=== PATIENT | female | born 1995 | race Caucasian/White ===

== ENCOUNTER 2019-09-14 22:41 | Emergency (ER) | payer OTHER, SELFPAY ==
--- NOTE | ~2019-09-14 | XR_ITS ---
EXAMINATION: XR chest 2V 09/15/2019 00:11 INDICATION: Cough and congestion PROCEDURE: 2 view chest COMPARISON: No prior studies for comparison. FINDINGS: The lungs are clear. The cardiomediastinal silhouette is within normal limits. There are no pleural effusions. There is no pneumothorax suspected. IMPRESSION: 1: NO ACUTE CARDIOPULMONARY DISEASE. Reviewed, dictated and finalized at location A.
[2019-09-14 22:41] VITALS: BP 134/89; PULSE 86; RESP 18; TEMP 36.4; O2SAT 100
--- NOTE | 2019-09-14 22:57 | ED.URI ---
HPI - URI/Sore Throat General Chief Complaint: Upper Respiratory Infection Stated Complaint: cough Time Seen by Provider: 09/14/19 22:57 Source: patient and RN notes reviewed Mode of arrival: ambulatory Limitations: no limitations History of Present Illness HPI Narrative: A 24 y/o female, who is 36 weeks gravid, presents to the ED with a worsening green productive cough for the past 11 days. She states that she was seen at [facility] 8 days ago where she had a negative flu test and was dx with a viral infection. She reports an associated nasal congestion and a burning sensation when she takes deep breath. She denies any fevers, chills, N/V/D, or SOB. MD elicited complaint: cough Pertinent past history: asthma Onset (ago): day(s) () Consistency: progressively worsening Description of mucous: green Associated symptoms: nasal congestion and other (burning sensation when she takes deep breath) Related Data Home Medications Medication Instructions Recorded Confirmed PNV cmb#95-ferrous fumarate-FA tablet PO 09/14/19 [] Allergies Allergy/AdvReac Type Severity Reaction Status Date / Time latex Allergy Mild Rash Verified 09/14/19 23:15 pineapple Allergy Mild Rash Verified 09/14/19 23:15 Review of Systems Review of Systems: All systems reviewed & are unremarkable except as noted in HPI and below Constitutional: Constitutional: Denies chills and Denies fever(s) ENT: Reports nasal congestion Respiratory: Respiratory: Reports cough (green productive), Reports pain on inspiration (burning) and Denies dyspnea Gastrointestinal: Gastrointestinal: Denies diarrhea, Denies nausea and Denies vomiting PMFSH Past Medical History Medical History (Updated 09/15/19 @ 00:47 by Suly Ontiveros MD) Anxiety Asthma Depression Hx of seizure disorder Surgical History Surgical History (Updated 09/14/19 @ 23:08 by Curt Ferro) No history of previous surgery Social History Social History (Updated 09/14/19 @ 23:08 by Curt Ferro) Smoking status: Former smoker Tobacco type: cigarettes Exam Const: General: cooperative, no acute distress and alert Nutritional Appearance: well nourished Orientation/consciousness: patient oriented x3 Limitations: no limitations HENMT: Mouth: Yes lip normal and Yes moist mucous membranes Resp: Effort & Inspection: normal respiratory effort Auscultation: clear to auscultation bilaterally Cardio: Rate: regular rate Rhythm: regular rhythm Skin: General skin exam: normal color Neuro: General: patient oriented x3 Cognition (Neuro): normal cognition Speech: normal speech Extrem: General: normal to inspection, full ROM and no clubbing, cyanosis or edema Psych: Mental Status: mental status grossly normal Affect: normal affect Attitude: cooperative Course Course Emergency Course: Patient feeling better after nebulizer treatment. Discussed chest x-ray results, diagnosis, and treatment plan. Suspect viral upper respiratory infection with aggravation of patient's underlying asthma. No significant wheezing noted on exam, hence no steroids will be prescribed. Will prescribe inhaler. Vital Signs Vital signs: Vital Signs Temperature 97.5 F L 09/14/19 22:41 Pulse Rate 86 09/14/19 22:41 Respiratory Rate 18 09/14/19 22:41 Blood Pressure 134/89 09/14/19 22:41 Pulse Oximetry 100 09/14/19 22:41 Temperature 97.5 F L 09/14/19 22:41 Pulse Rate 102 H 09/14/19 23:26 Respiratory Rate 18 09/14/19 23:26 Blood Pressure 134/89 09/14/19 22:41 Pulse Oximetry 100 09/14/19 22:41 MDM - URI/Sore Throat Lab Data Attestation: I reviewed the patient's lab results. Labs: Influenza A Screen Negative Reference Range: Negative Influenza B Screen Negative Reference Range: Negative Strep Screen Presumptive Negative *(Reference Range: Negative)* Imaging Data Attestation: I personally reviewed and i
[2019-09-14] MEDS: IPRATROPIUM BR 0.02% INH SOLN 0.5 MG/2.5 ML VIAL INHALATION (23:15)
[2019-09-14] MEDS: ALBUTEROL SULFATE NEB 2.5 MG/0.5 ML INH 5 MG INHALATION (23:15)
[2019-09-14 23:16] VITALS: PULSE 100; RESP 18
[2019-09-14 23:26] VITALS: PULSE 102; RESP 18
[2019-09-15 00:45] VITALS: BP 138/94; PULSE 106; RESP 18; O2SAT 99
== END 2019-09-15 00:59 | disposition home or self-care (01) ==
PROVIDERS: Emergency Provider Emergency Medicine; PCP Internal Medicine Infectious Disease
DX: O99.513 Diseases of the respiratory system complicating pregnancy, third trimester (principal); J06.9 Acute upper respiratory infection, unspecified; Z87.891 Personal history of nicotine dependence
CPT/HCPCS: 71046; 87081; 87804; 87880; 94640; 99283

== ENCOUNTER 2019-09-24 14:14 | Outpatient (RCR) | payer OTHER, SELFPAY ==
[2019-09-24 15:16] VITALS: BP 129/86; PULSE 91
== END 2019-10-06 08:15 | disposition home or self-care (01) ==
LOC: ANHOBOP 14:14
PROVIDERS: PCP Internal Medicine Infectious Disease; Visit Provider Obstetrics & Gynecology
DX: O36.8130 Decreased fetal movements, third trimester, not applicable or unspecified (principal); Z3A.37 37 weeks gestation of pregnancy
CPT/HCPCS: 59025

== ENCOUNTER 2019-10-02 05:05 | Inpatient (IN) | payer OTHER, SELFPAY ==
[2019-10-02] VITALS (55 sets, daily range): BP systolic 96–173; BP diastolic 64–145; PULSE 74–270; RESP 16–18; TEMP 36.6–36.9; O2SAT 97–100; BMI 35.6
[2019-10-02 06:31] LABS: Basophils Percent Auto 0.3 % (0.2-1.2); Eosinophils Absolute Auto 0.1 K/mm3 (0-0.3); Eosinophils Percent Auto 0.7 % (0-4.4); Hematocrit 32.9 % (37.0-47.0); Hemoglobin 10.7 g/dL (12.0-15.0); Immature Granulocyte Absolute 0.21 K/mm3 (0.00-0.031); Lymphocytes Absolute Auto 2.07 K/mm3 (0.9-3.2); Lymphocytes Percent Auto 19.6 % (18.3-44.2); Mean Corpuscular HGB Conc 32.5 g/dl (32-36); Mean Corpuscular Hemoglobin 24.7 pg (26-34); Mean Platelet Volume 10.2 fl (7.4-10.4); Monocytes Absolute Auto 0.8 K/mm3 (0.1-0.6); Monocytes Percent Auto 7.4 % (2.6-8.5); Neutrophils Absolute Auto 7.4 K/mm3 (1.3-6.7); Platelet Count Result 268 k/mm3 (150-375); Red Blood Count 4.33 M/mm3 (4.2-5.4); Red Cell Distribution Width 14.6 % (11.5-14.5); White Blood Count 10.6 K/mm3 (4.5-10.0)
--- NOTE | 2019-10-02 06:38 | LDADM ---
This patient, Marielos Matson November, was admitted to Labor/Delivery/Recovery 109 on 10/02/19 at 05:05. Plans for labor, pain management and were discussed with patient. Patient/family oriented to hospital policies and general routines including ID bracelet, bed and alarms, visiting hours, pain management, procedures, bathroom and other care routines, personal items, smoking policy, room service/diet and guest tray routines, security routines, and visiting hours. Patient/Family are encouraged to report perceived risks to care and to ask questions if they do not understand what they are told or what they should do. See OBIX for further documentation.
[2019-10-02] MEDS: AMPICILLIN 2 GM/NS 100 ML 2 GM/100 ML BAG IVPB (06:41)
[2019-10-02] MEDS: LACTATED RINGERS 1,000 ML 125 ML IV CONT (06:41)
[2019-10-02] MEDS: OXYTOCIN 30 UNITS/NS 500 ML 30 UNITS/500 ML BAG IV CONT (06:42)
--- NOTE | 2019-10-02 07:17 | PM.IMHP ---
H&P: HPI History of Present Illness Chief complaint: iol Narrative: Marielos Ly is a 24 year old female 6 para 302 3 whose last menstrual period gives an EDC of 39 weeks gestation today. Her care has been with Dr. Stuart Batista. She does have a history of a term IUFD. She is positive for group B strep. Her cervix is favorable. She is admitted for induction of labor with suspected spontaneous vaginal delivery. Review of Systems Review of Systems: All systems reviewed & are unremarkable except as noted in HPI and below PMFSH Past Medical History Medical History Anxiety Asthma Depression Hx of seizure disorder Surgical History Surgical History No history of previous surgery Family History Family History Grandparent Diabetes mellitus Sibling Asthma Other Breast cancer Social History Social History Smoking status: Former smoker Tobacco type: cigarettes Substance use: never Gender identity (if verbalized by the patient): Female Spiritual care concerns: No Meds Home Medications and Allergies Home Medications Medication Instructions Recorded Confirmed Type PNV cmb#95-ferrous fumarate-FA 1 tablet PO DAILY 09/14/19 09/24/19 History [] albuterol sulfate 2 - 4 puff INHALATION Q4H PRN #18 09/15/19 09/24/19 Rx gm calcium carbonate [Tums] 200 mg PO BID 09/24/19 09/24/19 History Allergies Allergy/AdvReac Type Severity Reaction Status Date / Time latex Allergy Mild Rash Verified 09/14/19 23:15 pineapple Allergy Mild Rash Verified 09/14/19 23:15 Vital Signs Vital Signs - 24 hr 10/02/19 06:15 10/02/19 06:30 10/02/19 06:45 Pulse Rate 103 H 87 87 Blood Pressure 136/92 H 133/80 134/95 H 10/02/19 07:00 10/02/19 07:15 Pulse Rate 89 82 Blood Pressure 134/82 134/82 Exam Const: General: no acute distress Eyes: General: appearance normal, both eyes and all related structures Neck: Neck: supple and no JVD Thyroid: thyroid normal Resp: Effort & Inspection: normal respiratory effort Auscultation: clear to auscultation bilaterally Cardio: Rate: regular rate Rhythm: regular rhythm GI: Inspection: normal to inspection (Gravid soft uterus.) : General: Yes other (Cervix 2-3/50/-2. AROM clear. FHTs reassuring) Skin: General skin exam: no rashes or lesions noted Extrem: General: normal to inspection and no edema Psych: Mental Status: mental status grossly normal Affect: normal affect H&P: Results Labs Labs: Short CBC 10/02/19 Range/Units 06:14 WBC 10.6 H (4.5-10.0) K/mm3 Hgb 10.7 L (12.0-15.0) g/dL Hct 32.9 L (37.0-47.0) % Plt Count 268 (150-375) k/mm3 Assessment and Plan Additional Plan Impression: Term . Positive group B strep. History of IUFD. Plan: Medical induction labor. Spontaneous vaginal delivery is expected. she has an epidural and
[2019-10-02 07:43] LABS: Rapid Plasma Reagin Non-Reactive (NonReactive)
--- NOTE | 2019-10-02 10:09 | WPDANESEPPF ---
Anes - Initial Pre Proc Eval Date/Time: 10/02/19 10:09 Surgeon: Sudhakar Hickman MD Pre Op Diagnosis: iol Patient Data Age: 24 Gender: F Height: 5 ft 5 in Weight: 97 kg Last Vital Signs Temp 36.9 C 10/02/19 09:30 Pulse 74 10/02/19 10:00 BP 118/70 10/02/19 10:00 Pulse Ox 99 10/02/19 09:21 Allergies Allergy/AdvReac Type Severity Reaction Status Date / Time latex Allergy Mild Rash Verified 09/14/19 23:15 pineapple Allergy Mild Rash Verified 09/14/19 23:15 Home Medications Medication Instructions Recorded Confirmed Type PNV cmb#95-ferrous fumarate-FA 1 tablet PO DAILY 09/14/19 09/24/19 History [] albuterol sulfate 2 - 4 puff INHALATION Q4H PRN #18 09/15/19 09/24/19 Rx gm calcium carbonate [Tums] 200 mg PO BID 09/24/19 09/24/19 History Laboratory Tests 10/02/19 10/02/19 10/02/19 06:14 06:14 06:14 WBC 10.6 K/mm3 H K/mm3 (4.5-10.0) RBC 4.33 M/mm3 M/mm3 (4.2-5.4) Hgb 10.7 g/dL L g/dL (12.0-15.0) Hct 32.9 % L % (37.0-47.0) MCV 76.0 fl L fl (80-100) MCH 24.7 pg L pg (26-34) MCHC 32.5 g/dl g/dl (32-36) RDW 14.6 % H % (11.5-14.5) Plt Count 268 k/mm3 k/mm3 (150-375) MPV 10.2 fl fl (7.4-10.4) Immature Gran % (Auto) 2.0 % H % (0-0.5) Neut % (Auto) 70.0 % % (45.5-73.1) Lymph % (Auto) 19.6 % % (18.3-44.2) [place] % (Auto) 7.4 % % (2.6-8.5) Eos % (Auto) 0.7 % % (0-4.4) Baso % (Auto) 0.3 % % (0.2-1.2) Lymph # (Auto) 2.07 K/mm3 K/mm3 (0.9-3.2) [place] # (Auto) 0.8 K/mm3 H K/mm3 (0.1-0.6) Eos # (Auto) 0.1 K/mm3 K/mm3 (0-0.3) Baso # (Auto) 0.0 K/mm3 K/mm3 (0.0-0.1) Abs Immat Gran (auto) 0.21 K/mm3 H K/mm3 (0.00-0.031) Absolute Neuts (auto) 7.4 K/mm3 H K/mm3 (1.3-6.7) Absolute Nucleated RBC 0.0 K/mm3 K/mm3 (0.0-0.012) Nucleated RBC % 0.0 % % (0.0-0.2) RPR Non-reactive (NonReactive) Blood Type O Positive Antibody Screen Negative Patient hx anesthesia problems: none Family hx anesthesia problems: none PMFSH Past Medical History Medical History Anxiety Asthma Depression Hx of seizure disorder Surgical History Surgical History No history of previous surgery Family History Family History Grandparent Diabetes mellitus Sibling Asthma Other Breast cancer Social History Social History Smoking status: Former smoker Tobacco type: cigarettes Substance use: never Gender identity (if verbalized by the patient): Female Spiritual care concerns: No Anes - Eval Final PreProcedure Day of Procedure 10/02/19 10:09 Patient weight: obese Neurological: alert and oriented ASA classification: III Emergent: no Anesthetic plan: proceed Anesthesia type and monitoring: regional epidural and standard monitoring Informed Consent: The patient's anesthetic plan and its attendant risks and benefits were discussed with the patient/family/POA. Questions were solicited and answers provided to the satisfaction of the patient/family/POA.
[2019-10-02] MEDS: AMPICILLIN 1 GM/NS 50 ML 1 GM/50 ML BAG IVPB (10:37)
--- NOTE | 2019-10-02 11:24 | PM.OBPRVD ---
OB - Delivery Note Procedure Delivery date: 10/02/19 Intrapartal events: None Induction method: AROM Delivery augmentation: pitocin Delivery monitor: external FHT Route of delivery: Episiotomy description: None Laceration description: None Specimen: No Estimated blood loss (mL): 57 Anesthesia type: Epidural Disposition: floor Baby Date of : 10/02/19 Weeks of gestation at delivery: 39 gender: Male presentation: vertex position: Right Occiput Anterior Placenta delivery description: Spontaneous cord vessel description: 3 Vessels and Nuchal Cord score one minute: 9 score five minutes: 9
[2019-10-02] MEDS: OXYTOCIN 30 UNITS/NS 500 ML 30 UNITS/500 ML BAG 125 UNITS IV CONT (12:08)
[2019-10-02] MEDS: ACETAMINOPHEN 325 MG TABLET 650 MG PO ×2 (17:17→23:16)
--- NOTE | 2019-10-02 17:34 | OBPPTRN ---
Patient transferred to post room # 285 per wheelchair. Support person present. Oriented to unit, room, information board, rooming in, admission packet and security measures. Patient verbalizes understanding.
[2019-10-03 05:11] LABS: Hematocrit 30.8 % (37.0-47.0); Hemoglobin 9.6 g/dL (12.0-15.0)
--- NOTE | 2019-10-03 06:53 | PM.OBPNVD ---
OB - PN: Subj Subjective Date/time seen: 10/03/19 06:53 Patient comments: no complaints and pain well controlled baby status: doing well and nursing well OB - PN: Obj Data Labs CBC & Chem 7: 10/03/19 04:28 Labs: Laboratory Results - last 24 hr 10/02/19 10/02/19 10/03/19 06:14 06:14 04:28 Hgb 9.6 L Hct 30.8 L RPR Non-reactive Blood Type O Positive Antibody Screen Negative OB - PN A/P Plan day: 1 Plan: routine care Time Spent With Patient Time: Total time spent is greater than 50% in coordination of care (as documented) at patient's floor/unit and/or counseling patient: Time with patient: less than 15 minutes Review of Systems Review of Systems: All systems reviewed & are unremarkable except as noted in HPI and below Exam Const: General: no acute distress Eyes: General: appearance normal, both eyes and all related structures Neck: Neck: supple and no JVD Thyroid: thyroid normal Resp: Effort & Inspection: normal respiratory effort Auscultation: clear to auscultation bilaterally Cardio: Rate: regular rate Rhythm: regular rhythm GI: Inspection: non-distended GI Palp: Yes Soft to palpation, No Tenderness to palpation present (GI) and No Guarding due to palpation present (GI) Auscultation: normal bowel sounds : General: Yes bladder normal to palpation External Female Exam: normal external appearance Speculum Exam - Vagina: normal vaginal discharge and No vaginal bleeding Speculum Exam - Cervix: nontender Bimanual exam- vagina & uterus: bladder normal to palpation and No Cervical tenderness present OB/external & speculum: No vaginal bleeding Skin: General skin exam: no rashes or lesions noted Extrem: General: normal to inspection and no edema Psych: Mental Status: mental status grossly normal Affect: normal affect
[2019-10-03 08:00] VITALS: BP 121/75; PULSE 80; RESP 18; TEMP 36.9; O2SAT 98
--- NOTE | 2019-10-03 13:15 | PC.NURSE ---
Consulted with patient, mother reports pain with feeding. Both nipples are reddened from incorrect latch. Nipple care reviewed. Reviewed feeding cues, frequencies, duration of feedings, feeding elimination flow sheet, and signs of adequate intake. Demonstrated stimulation techniques to wake infant for feeding. Assisted with to breast. Reviewed positioning/alignment in cross cradle, holding breast in U hold and guided asymmetrical latch on. Infant was able to latch correctly. Mother quickly reports she can feel infant is latched more deeply than previous feedings. nursed eagerly, with steady draws and frequent swallowing noted. Reviewed signs of a correct latch, effective nursing and suck swallow ratio. Infant was able to maintain latch without discomfort to mother. Suggested mother stimulate infant to keep awake and nursing effectively for increased intake and assist with maintaining deep latch. Demonstrated how to adjust latch more deeply while feeding. Instructed mother to call out for RN assistance if she is unable to latch infant for feeding or she has discomfort with nursing. Instructed feeding should be initiated three hours from start of last feeding or if feeding cues are noted before. Mother voiced understanding of information shared.
[2019-10-03] MEDS: MULTIVIT/MIN/PREN/FOL AC/IRON TABLET 1 TAB PO (13:49)
[2019-10-03] MEDS: DOCUSATE SODIUM 100 MG CAPSULE PO (13:49)
[2019-10-03] MEDS: ACETAMINOPHEN 325 MG TABLET 650 MG PO (13:49)
[2019-10-03] MEDS: POLYSACCHARIDE IRON COMPLEX 150 MG CAPSULE PO (13:49)
[2019-10-03 20:04] VITALS: BP 117/82; PULSE 85; RESP 16; TEMP 36.5
[2019-10-04 08:00] VITALS: BP 118/90; PULSE 75; RESP 16; TEMP 36.7; O2SAT 98
[2019-10-04] MEDS: DOCUSATE SODIUM 100 MG CAPSULE PO (09:52)
[2019-10-04] MEDS: MULTIVIT/MIN/PREN/FOL AC/IRON TABLET 1 TAB PO (09:52)
[2019-10-04] MEDS: POLYSACCHARIDE IRON COMPLEX 150 MG CAPSULE PO ×2 (09:52)
--- NOTE | 2019-10-04 10:55 | PC.NURSE ---
Patient viewed the discharge video Mother & Baby Care, The First Two Weeks . Patient was given the opportunity and encouraged to ask questions. Patient verbalized understanding of information shared and has been given the mother/baby guide for home reference.
--- NOTE | 2019-10-04 11:18 | PM.OBPNVD ---
OB - PN: Subj Subjective Date/time seen: 10/04/19 11:18 Narrative: Pain OK. Would like to go home. OB - PN: Obj Data Labs CBC & Chem 7: 10/03/19 04:28 OB - PN A/P Plan Comments: A: PPD#2, doing well. P: Home to f/u 6 weeks. Exam Psych: Other: AVSS ABD soft, nontender, fundus firm EXT nontender
--- NOTE | 2019-10-04 11:18 | PM.OBDSVD ---
DS: Diagnosis Discharge Diagnosis (1) (normal spontaneous vaginal delivery): Code(s): O80 - Encounter for full-term uncomplicated delivery Status: Acute OB - DS: Summary OB Procedures : None OB Procedures Intrapartum: Spontaneous Vag Delivery OB Procedures: : None Time Spent with Patient Time attestation: Total time spent providing and/or coordinating discharge services: Discharge Plan Discharge Attending physician on discharge: Sudhakar Hickman Discharging Clinician: Daniel Vergara Patient Disposition: Home, Self-Care Activity: pelvic rest Diet: regular Discharge Instructions: Call or return if temperature above 100.4? F, increased abdominal pain, increased vaginal bleeding or any new problems. Stand Alone Forms: General Discharge Information Follow-up/Referrals: Sudhakar Hickman MD [Physician] - (6 weeks) Daniel Vergara MD [Physician] - Discharge Medications: New ibuprofen 600 mg tablet 600 mg PO Q6H PRN (Reason: cramps) Qty: 30 RF: 0 No Action calcium carbonate [Tums] 200 mg calcium (500 mg) Tablet,Chewable 200 mg PO BID RF: 0 PNV cmb#95-ferrous fumarate-FA [] 28 mg iron- 800 mcg Tablet 1 tablet PO DAILY RF: 0 albuterol sulfate 90 mcg/actuation HFA aerosol inhaler 2 - 4 puff INHALATION Q4H PRN (Reason: shortness of breath or wheezing) Qty: 18 RF: 0 Date of admission: 10/02/19 05:05 Primary Care Provider: BrennenCynthia Admitting Provider: Sudhakar Hickman Attending physician on admission: Sudhakar Hickman
[2019-10-04] MEDS: MEASLES,MUMPS,RUBELLA VACCINE 0.5 ML VIAL SUB-Q (11:57)
[2019-10-06 09:22] VITALS: BP 127/90; PULSE 89; RESP 18; TEMP 36.7
== END 2019-10-04 12:44 | disposition home or self-care (01) | DRG 560 ==
LOC: ANHLDR 05:37 → ANHOB2 10-04 11:20 → ANHLDR 10-07 10:33 → ANHOB2 10-07 10:33
PROVIDERS: Admitting Provider Obstetrics & Gynecology; PCP Internal Medicine Infectious Disease; Visit Provider Obstetrics & Gynecology
DX: O99.824 Streptococcus B carrier state complicating childbirth (principal); Z3A.39 39 weeks gestation of pregnancy; Z37.0 Single live birth; Z23 Encounter for immunization; Z87.891 Personal history of nicotine dependence; O69.81X0 Labor and delivery complicated by cord around neck, without compression, not applicable or unspecified
CPT/HCPCS: 36415; 85014; 85018; 85025; 86592; 86850; 86900; 86901; 90710; A9270; J0290; J2590; J2795; J7120

== ENCOUNTER 2019-11-25 00:34 | Outpatient (CLI) | payer OTHER, SELFPAY ==
[2019-11-25 18:41] LABS: SARS-CoV-2 RNA PCR Negative
== END 2019-11-25 00:35 | disposition home or self-care (01) ==
LOC: ANHCOVIDDT 00:34
PROVIDERS: PCP Internal Medicine Infectious Disease; Visit Provider Obstetrics & Gynecology
DX: Z01.818 Encounter for other preprocedural examination (principal); Z11.59 Encounter for screening for other viral diseases
CPT/HCPCS: 87635; C9803; U0003

== ENCOUNTER 2019-11-26 10:22 | Outpatient (CLI) | payer OTHER, SELFPAY ==
[2019-11-26 11:15] LABS: Hematocrit 38.1 % (37.0-47.0); Hemoglobin 12.3 g/dL (12.0-15.0)
== END 2019-11-26 10:23 | disposition home or self-care (01) ==
PROVIDERS: PCP Internal Medicine Infectious Disease; Visit Provider Obstetrics & Gynecology
DX: D64.9 Anemia, unspecified (principal)
CPT/HCPCS: 36415; 85014; 85018

== ENCOUNTER 2019-11-28 02:01 | Day surgery (SDC) | payer OTHER, SELFPAY ==
[2019-11-21 14:55] VITALS: BMI 23.3
--- NOTE | 2019-11-27 07:29 | PM.IMHP ---
H&P: HPI History of Present Illness Chief complaint: desires sterilization Narrative: Marielos Ly is a 24 year old female G4 before who was admitted for laparoscopic tubal ligation. She desires permanent and irreversible sterilization. We reviewed alternative is including but not exclusive of pills patches injections implants etc. Failure rates of 09/999 the subsequent risk of ectopic , bleeding and were reviewed. Permanence was under good she had all questions answered in asked to proceed Review of Systems Review of Systems: All systems reviewed & are unremarkable except as noted in HPI and below PMFSH Past Medical History Medical History Anxiety Asthma Depression Hx of seizure disorder Surgical History Surgical History No history of previous surgery Family History Family History Grandparent Diabetes mellitus Sibling Asthma Other Breast cancer Social History Social History Smoking status: Former smoker Tobacco type: cigarettes Substance use: never Gender identity (if verbalized by the patient): Female Spiritual care concerns: No Meds Home Medications and Allergies Home Medications Medication Instructions Recorded Confirmed Type albuterol sulfate 2 - 4 puff INHALATION Q4H PRN #18 09/15/19 11/21/19 Rx gm Allergies Allergy/AdvReac Type Severity Reaction Status Date / Time latex Allergy Severe SEVERE Verified 11/21/19 14:53 SWELLING/IRRITATION RASH pineapple Allergy Severe ANAPHYLATIC Verified 11/21/19 14:53 REACTION Exam Const: General: no acute distress Eyes: General: appearance normal, both eyes and all related structures Neck: Neck: supple and no JVD Thyroid: thyroid normal Resp: Effort & Inspection: normal respiratory effort Auscultation: clear to auscultation bilaterally Cardio: Rate: regular rate Rhythm: regular rhythm GI: Inspection: non-distended GI Palp: Yes Soft to palpation, No Tenderness to palpation present (GI) and No Guarding due to palpation present (GI) Auscultation: normal bowel sounds : General: Yes bladder normal to palpation External Female Exam: normal external appearance Speculum Exam - Vagina: normal vaginal discharge and No vaginal bleeding Speculum Exam - Cervix: nontender Bimanual exam- vagina & uterus: bladder normal to palpation and No Cervical tenderness present OB/external & speculum: No vaginal bleeding Skin: General skin exam: no rashes or lesions noted Extrem: General: normal to inspection and no edema Psych: Mental Status: mental status grossly normal Affect: normal affect Assessment and Plan Additional Plan impression: Desires permanent sterilization Plan: Laparoscopic bilateral tubal ligation
[2019-11-28] VITALS (14 sets, daily range): BP systolic 114–151; BP diastolic 72–101; PULSE 64–105; RESP 9–22; TEMP 36.7–37; O2SAT 7–100
--- NOTE | 2019-11-28 06:43 | WPDHPUPDATE1 ---
History and Physical Update Update Date/Time: 11/28/19 06:43 History and Physical has been reviewed, including an updated exam of the patient. There are NO changes in the patient's condition. Risks, benefits, and alternatives have been discussed and questions answered. Patient agrees to proceed with procedure.
[2019-11-28] MEDS: LACTATED RINGERS 1,000 ML 30 ML IV CONT ×2 (07:05→10:39)
--- NOTE | 2019-11-28 07:11 | WPDANESEPPF ---
Anes - Initial Pre Proc Eval Procedure: Operation Date: 11/28/19 09:30 Proposed Procedures p Laparoscopic Bilateral Tubal Sterilization with Fallopian Rings - Sudhakar Hickman MD Date/Time: 11/28/19 07:11 Surgeon: Sudhakar Hickman MD Pre Op Diagnosis: desires sterilization Patient Data Age: 24 Gender: F Height: 5 ft 5 in Weight: 63.5 kg Allergies Allergy/AdvReac Type Severity Reaction Status Date / Time latex Allergy Severe SEVERE Verified 11/21/19 14:53 SWELLING/IRRITATION RASH pineapple Allergy Severe ANAPHYLATIC Verified 11/21/19 14:53 REACTION Home Medications Medication Instructions Recorded Confirmed Type albuterol sulfate 2 - 4 puff INHALATION Q4H PRN #18 09/15/19 11/21/19 Rx gm hydrocodone-acetaminophen [[place]] 1 tablet PO Q4H PRN #30 tablet 11/28/19 Rx Patient hx anesthesia problems: none Family hx anesthesia problems: post op nausea/vomiting PMFSH Past Medical History Medical History Anxiety Asthma Depression Hx of seizure disorder Surgical History Surgical History No history of previous surgery Family History Family History Grandparent Diabetes mellitus Sibling Asthma Other Breast cancer Social History Social History Smoking status: Former smoker Tobacco type: cigarettes Substance use: never Gender identity (if verbalized by the patient): Female Spiritual care concerns: No Anes - Eval Final PreProcedure Day of Procedure 11/28/19 07:11 Patient weight: overweight Heart: regular rate and rhythm Lungs: clear to auscultation Airway: Mallampati scale class II Neurological: alert and oriented Last oral intake: >/= 8 hours ASA classification: III Emergent: no Anesthetic plan: proceed Anesthesia type and monitoring: general ETT and standard monitoring Informed Consent: The patient's anesthetic plan and its attendant risks and benefits were discussed with the patient/family/POA. Questions were solicited and answers provided to the satisfaction of the patient/family/POA.
[2019-11-28] MEDS: KETOROLAC 30 MG/ML VIAL (*BKC) IV PUSH (09:48)
--- NOTE | 2019-11-28 09:50 | PM.PROC ---
Procedure Note - Detailed Date of procedure: 11/28/19 Pre-op diagnosis: desires sterilization Surgeon: Sudhakar Hickman MD Postop diagnosis desires sterilization Anesthesia: General endotracheal EBL: 5cc Complications: None Findings: Normal-appearing ovaries tubes and uterus Procedure: Laparoscopic bilateral tubal ligation with silastic rings Description of procedure: The patient was prepped and draped in the normal sterile fashion placed in the dorsal lithotomy position. Under excellent general endotracheal anesthesia weighted speculum placed in posterior fornix of vagina. Anterior lip of the cervix grasped with a single-tooth tenaculum. The Marie's cannula was inserted the cervix attached to the single-tooth. This was used later for uterine manipulation. After emptying the bladder of clear urine the weighted speculum was removed. Gloves were changed An infraumbilical incision made Veress needle passed in the abdomen. Veress needle passed in the abdomen filled with CO2 gas [id number]. 5mm trocar was advanced in the abdomen under direct visualization assuring no injury. The patient was placed in Trendelenburg and a suprapubic incision made. The 8mm trocar advanced in the abdomen under direct visualization assuring no injury. The right fallopian tube was grasped a good knuckle of tube free tied at its midportion excellent blanching was seen the left fallopian tube was grasped and a good knuckle of tube was formed with the silastic band. Blanching was noted as well. Photo documentation was undertaken. The appendix appeared within normal limits as did the remainder of the pelvis. The lower site removed. The gas removed from the abdomen. The incisions closed with 4 O Monocryl and glue. Instruments removed from the vagina patient. The patient went to recovery in satisfactory condition all sponge, needle, instrument counts were correct. There were no immediate complications
--- NOTE | 2019-11-28 10:57 | SUR.PHASEI ---
PT ABLE TO FALL ASLEEP FOR A COUPLE OF MINUTES IN BETWEEN DOSES OF FENTANYL BUT THEN WAKES UP CRYING.
[2019-11-28] MEDS: HYDROMORPHONE HCL 1 MG/ML INJ 0.5 MG IV PUSH ×2 (11:14→11:35)
--- NOTE | 2019-11-28 12:07 | SUR.PHASEI ---
UPDATED WHEN PT ARRIVED FROM OR AT 1000, AT 1100 AND AT 1200.
== END 2019-11-28 13:22 | disposition home or self-care (01) ==
PROVIDERS: PCP Internal Medicine Infectious Disease; Visit Provider Obstetrics & Gynecology
PROC: (CPT 58671; principal; 2019-11-28 09:30)
DX: Z30.2 Encounter for sterilization (principal); D64.9 Anemia, unspecified; J45.909 Unspecified asthma, uncomplicated; F32.9 Major depressive disorder, single episode, unspecified; Z87.891 Personal history of nicotine dependence
CPT/HCPCS: 58671; A4264; A9270; J0131; J1100; J1170; J1885; J2250; J2405; J2704; J2710; J3010; J7120

== ENCOUNTER 2019-12-04 23:49 | Emergency (ER) | payer OTHER, SELFPAY ==
[2019-12-05 00:02] VITALS: BP 135/89; PULSE 115; RESP 14; TEMP 37; O2SAT 100
[2019-12-05 00:32] LABS: Basophils Percent Auto 0.4 % (0.2-1.2); Eosinophils Absolute Auto 0.1 K/mm3 (0-0.3); Eosinophils Percent Auto 0.8 % (0-4.4); Hematocrit 37.3 % (37.0-47.0); Hemoglobin 11.9 g/dL (12.0-15.0); Immature Granulocyte Absolute 0.05 K/mm3 (0.00-0.031); Immature Granulocyte Percent A 0.7 % (0-0.5); Lymphocytes Absolute Auto 1.91 K/mm3 (0.9-3.2); Lymphocytes Percent Auto 25.8 % (18.3-44.2); Mean Corpuscular HGB Conc 31.9 g/dl (32-36); Mean Corpuscular Hemoglobin 24.9 pg (26-34); Mean Platelet Volume 9.2 fl (7.4-10.4); Monocytes Percent Auto 13.4 % (2.6-8.5); Neutrophils Absolute Auto 4.4 K/mm3 (1.3-6.7); Neutrophils Percent Auto 58.9 % (45.5-73.1); Platelet Count Result 296 k/mm3 (150-375); Red Blood Count 4.78 M/mm3 (4.2-5.4); Red Cell Distribution Width 14.9 % (11.5-14.5); White Blood Count 7.4 K/mm3 (4.5-10.0)
[2019-12-05 00:40] LABS: Add Urine Microscopic? YES; Appearance Urine Cloudy (Clear); Bacteria Urine Trace /hpf; Bilirubin Urine Negative (Negative); Blood Urine Negative (Negative); Color Urine Yellow (Yellow); Glucose Urine UA Negative (Negative); Ketones Urine Negative (Negative); Leukocyte Esterase Ur Trace LEU/UL (Negative); Mucus Urine Rare /lpf; Nitrate Urine Negative (Negative); Protein Urine Negative (Negative); Specific Grav Ur 1.023 (1.001-1.035); Squamous Epithelial Cell Urine Many /hpf (Few); Urobilinogen Urine Negative mg/dL (<2.0)
[2019-12-05 00:45] LABS: Alanine Aminotransferase 105 U/L (4-35); Albumin Level 4.6 g/dL (3.5-5.1); Alkaline Phosphatase 97 U/L (38-126); Aspartate Amino Transferase 65 U/L (14-36); Bilirubin,Total 0.2 mg/dL (0.2-1.3); Blood Urea Nitrogen 18 mg/dL (7-17); Calcium 9.6 mg/dL (8.4-10.2); Carbon Dioxide 26 mmol/L (22-30); Chloride 103 mmol/L (98-107); Estimated CRCL calculation 92 ml/min; Estimated Glomerular Filt Rate > 60; Glucose 96 mg/dL (65-105); Lipase 64 U/L (23-300); Sodium 138 mmol/L (137-145)
--- NOTE | 2019-12-05 00:48 | ED.GENADULT ---
HPI - General Adult General Chief complaint: Unspecified Stated complaint: fever post op Time Seen by Provider: 12/05/19 00:31 History of Present Illness HPI narrative: Patient presents with 2 days of fever and incisional pain from her tubal ligation 1 week ago. She was healing up fine, and then some incisional pain, fever and chills. She had Portal from postop, which she had not taken prior, and that helped just a little. Her temp this evening before coming in was 101. She currently gives the pain at 6 out of 10 without palpitation, but 9 out of 10 with palpitation at the incision site. There is no redness or drainage at the incision site. She does not take prescription medication, has had no other surgeries on her tubal ligation, and does not smoke drink or do drugs. Onset (ago): day(s) Location: abdomen Severity: severe Severity scale (1-10): 6 Related Data Allergies Allergy/AdvReac Type Severity Reaction Status Date / Time latex Allergy Severe SEVERE Verified 11/28/19 07:55 SWELLING/IRRITATION RASH pineapple Allergy Severe ANAPHYLATIC Verified 11/28/19 07:55 REACTION Review of Systems Review of Systems: Narrative: CONSTITUTIONAL: She has had fever, chills, and sweats. EYES: Denies visual changes, redness, or discharge. ENT: Denies rhinorrhea, congestion, sore throat, or otalgia. CARDIOVASCULAR: Denies chest pain, palpitations, or edema. RESPIRATORY: Denies cough or dyspnea. GASTROINTESTINAL: She has abdominal pain, but no nausea, vomiting, or diarrhea. GENITOURINARY: Denies dysuria or hematuria. SKIN: Denies rash or itching. MUSCULOSKELETAL: Denies back pain, joint pain, or myalgia. NEUROLOGIC: Denies headache, numbness, or weakness. PSYCHIATRIC: Denies anxiety or depression. [facility] Social History Social History Smoking status: Former smoker Tobacco type: cigarettes Substance use: never Gender identity (if verbalized by the patient): Female Spiritual care concerns: No Exam Narrative: Exam Narrative: GENERAL: Well-appearing, well-nourished, and in no acute distress. Quite nikos young lady. HEAD: Normocephalic, atraumatic. EYES: PERRLA and EOMI. ENT: Nares clear, no rhinorrhea or epistaxis. Mucous membranes moist. NECK: Supple. CHEST: Clear to auscultation. No respiratory distress. HEART: Regular rate and rhythm. No murmur heard. Normal peripheral pulses. ABDOMEN: Soft, 1 inch incision suprapubic, without drainage or redness. EXTREMITIES: Normal range of motion. No edema. SKIN: Warm, dry, no rash. NEURO: No focal deficits. Alert and oriented x3. PSYCH: Normal mood and affect. Course Reevaluation(s) Reevaluation #1: Went in to tell the patient about the Augmentin and for her to call in the morning for same-day appointment. She agrees. Date: 12/05/19 Time: 01:04 Consultations Consultation #1: Calling Dr. Scott Chairez, to discuss the case. Dr. Darcy Chairez return the call and agrees with starting Augmentin. He says she can have a same-day appointment today. Date: 12/05/19 Time: 00:52 Vital Signs Vital signs: Vital Signs Temperature 98.6 F 12/05/19 00:02 Pulse Rate 115 H 12/05/19 00:02 Respiratory Rate 14 12/05/19 00:02 Blood Pressure 135/89 12/05/19 00:02 Pulse Oximetry 100 12/05/19 00:02 Temperature 98.6 F 12/05/19 00:02 Pulse Rate 115 H 12/05/19 00:02 Respiratory Rate 14 12/05/19 00:02 Blood Pressure 135/89 12/05/19 00:02 Pulse Oximetry 100 12/05/19 00:02 Medical Decision Making Medical Records Medical records reviewed: Yes I reviewed the patient's medical records. Vital Signs Vital Signs: Vital Signs Temperature 98.6 F 12/05/19 00:02 Pulse Rate 115 H 12/05/19 00:02 Respiratory Rate 14 12/05/19 00:02 Blood Pressure 135/89 12/05/19 00:02 Pulse Oximetry 100 12/05/19 00:02 Temperature 98.6 F 12/05/19 00:02 Pulse Rate 115 H 12/05/19 00:02 Respiratory Ra
[2019-12-05] MEDS: ACETAMINOPHEN 325 MG TABLET 650 MG PO (01:10)
[2019-12-05] MEDS: IBUPROFEN 600 MG TABLET PO (01:10)
[2019-12-05] MEDS: AMOXICILLIN/CLAVULANATE K 875-125 MG TAB 1 TABLET PO (01:11)
[2019-12-05 01:18] VITALS: BP 130/75; PULSE 100; RESP 14; TEMP 37.5; O2SAT 100
== END 2019-12-05 01:20 | disposition home or self-care (01) ==
PROVIDERS: Emergency Provider Emergency Medicine; PCP Internal Medicine Infectious Disease
DX: G89.18 Other acute postprocedural pain (principal); R50.82 Postprocedural fever; Z87.891 Personal history of nicotine dependence
CPT/HCPCS: 36415; 80053; 81001; 83690; 85025; 87086; 99283; A9270

== ENCOUNTER 2020-03-07 01:26 | Emergency (ER) | payer OTHER, SELFPAY ==
--- NOTE | ~2020-03-07 | CT_ITS ---
EXAMINATION: CT brain wo con DATE: 03/07/2020 02:49 INDICATION: Severe headache. Seizure. TECHNIQUE: Computed tomography (CT) of the head was performed without intravenous contrast. Sagittal and coronal reconstructions were performed. The mA was adjusted according to patient size. Iterative reconstruction technique was employed. The dose-length product was 605.33 mGy-cm. COMPARISON: head CT dated 10/30/2011 FINDINGS: No acute intracranial hemorrhage, acute infarction or abnormal extra axial fluid collection. Ventricl es are normal and symmetric. No mass/mass effect. The orbits, paranasal sinuses and mastoid air cells are normal. IMPRESSION: 1. Normal head CT. Reviewed, dictated and finalized at location A. IMPRESSION: 1. Normal head CT.
[2020-03-07 01:27] VITALS: BP 154/95; PULSE 76; RESP 18; TEMP 36.9; O2SAT 99
--- NOTE | 2020-03-07 02:37 | ED.SEIZURE ---
HPI - Seizure General Chief Complaint: Seizure Stated Complaint: seizure Time Seen by Provider: 03/07/20 02:17 Source: patient Mode of arrival: EMS Limitations: no limitations History of Present Illness HPI Narrative: This patient is a 24 year old female with history seizures and migraines who presents for evaluation of seizures. EMS reports patient was witness to have 2 seizures lasting 7 minutes . PAtient states she remembers talking to her friend and then she woke up to EMS . She now reports severe left sided headache and she had nausea and vomiting after her seizure. Patient reports she has been dealing with seizures since the age of 13. She was taking topamax but she has not taken in over 2 years. She states she does not like taking medication. Her neurologist is a Dr. Mulligan at [facility] but she has not seen him in a while. SHe states they believe her seizures are due to her migraines. Her family reports she had a seizure 10 days ago and before that she has not had a seizure in a year. Her family reports her seizure look like legs stiffen and her eyes of closed. Seizure History: Yes (UNKNOWN-THINKS MAYBE 2 YEARS) Related Data Allergies Allergy/AdvReac Type Severity Reaction Status Date / Time latex Allergy Severe SEVERE Verified 11/28/19 07:55 SWELLING/IRRITATION RASH pineapple Allergy Severe ANAPHYLATIC Verified 11/28/19 07:55 REACTION Review of Systems Review of Systems: All systems reviewed & are unremarkable except as noted in HPI and below Constitutional: Constitutional: Denies chills and Denies fever(s) ENT: Comments: denies biting tongue Gastrointestinal: Gastrointestinal: Denies abdominal pain, Reports nausea and Reports vomiting Genitourinary: Genitourinary: Denies urinary incontinence Neurologic: Reports headache(s), Denies focal weakness and Denies numbness PMFSH Social History Social History Smoking status: Former smoker Tobacco type: cigarettes Substance use: never Gender identity (if verbalized by the patient): Female Spiritual care concerns: No Exam Narrative: Exam Narrative: GENERAL: Well-appearing, well-nourished, and in no acute distress. HEAD: Normocephalic, atraumatic EYES: PERRLA and EOMI, conjunctiva clear without discharge EARS: TM's clear bilaterally without erythema or dullness NOSE: Nares clear, no rhinorrhea or epistaxis THROAT:Mucous membranes moist, Oropharynx normal without erythema, exudate, peritonsillar swelling or fluctuance NECK: Supple, without lymphadenopathy or mass RESPIRATORY: No respiratory distress, Airway patent, Respirations non-labored, Clear to auscultation without rales, rhonchi or wheeze HEART: Regular rate and rhythm. No murmur heard. Normal peripheral pulses. ABDOMEN: Soft, nontender, nondistended, normal active bowel sounds. No masses. No rebound or guarding, No organomegaly. EXTREMITIES: No edema, normal strength with full range of motion. SKIN: Warm, dry, normal color without rash NEURO: Alert and oriented x3. CN 2-12 grossly intact. No focal deficits. PSYCH: Normal mood and affect. Course Reevaluation(s) Reevaluation #1: PAtient states she feels much better. I discussed with her evaluation is unremarkable. She is will to restart topamax Date: 03/07/20 Time: 04:27 Consultations Consultation #1: I discussed case with Dr. Mulligan. He recommends starting topamax 25 mg BID Date: 03/07/20 Time: 04:28 Vital Signs Vital signs: Vital Signs Temperature 98.4 F 03/07/20 01:27 Pulse Rate 76 03/07/20 01:27 Respiratory Rate 18 03/07/20 01:27 Blood Pressure 154/95 H 03/07/20 01:27 Pulse Oximetry 99 03/07/20 01:27 Temperature 98.4 F 03/07/20 04:52 Pulse Rate 82 03/07/20 04:52 Respiratory Rate 16 03/07/20 04:52 Blood Pressure 121/73 03/07/20 04:52 Pulse Oximetry 99 03/07/20 04:52 MDM - Seizure Lab Data Attestation: I revie
[2020-03-07] MEDS: SODIUM CHLORIDE 0.9% IV 1,000 ML 999 ML IV CONT (03:01)
[2020-03-07] MEDS: diphenhydrAMINE HCl INJ 50 MG/ML VIAL 25 MG IV PUSH (03:01)
[2020-03-07] MEDS: METOCLOPRAMIDE HCL INJ 10 MG/2 ML VIAL IV PUSH (03:01)
[2020-03-07 03:05] LABS: Basophils Percent Auto 0.4 % (0.2-1.2); Eosinophils Absolute Auto 0.1 K/mm3 (0-0.3); Eosinophils Percent Auto 0.9 % (0-4.4); Hematocrit 37.8 % (37.0-47.0); Hemoglobin 12.7 g/dL (12.0-15.0); Immature Granulocyte Absolute 0.03 K/mm3 (0.00-0.031); Immature Granulocyte Percent A 0.4 % (0-0.5); Lymphocytes Absolute Auto 2.38 K/mm3 (0.9-3.2); Lymphocytes Percent Auto 29.9 % (18.3-44.2); Mean Corpuscular HGB Conc 33.6 g/dl (32-36); Mean Corpuscular Hemoglobin 26.7 pg (26-34); Mean Corpuscular Volume 79.6 fl (80-100); Mean Platelet Volume 9.9 fl (7.4-10.4); Monocytes Absolute Auto 0.5 K/mm3 (0.1-0.6); Monocytes Percent Auto 6.8 % (2.6-8.5); Neutrophils Absolute Auto 4.9 K/mm3 (1.3-6.7); Neutrophils Percent Auto 61.6 % (45.5-73.1); Platelet Count Result 299 k/mm3 (150-375); Red Blood Count 4.75 M/mm3 (4.2-5.4); Red Cell Distribution Width 13.8 % (11.5-14.5)
[2020-03-07 03:18] LABS: Add Urine Microscopic? YES; Appearance Urine Cloudy (Clear); Bacteria Urine Trace /hpf; Bilirubin Urine Negative (Negative); Blood Urine Negative (Negative); Color Urine Yellow (Yellow); Glucose Urine UA Negative (Negative); Ketones Urine Negative (Negative); Leukocyte Esterase Ur 1+ LEU/UL (Negative); Mucus Urine Few /lpf; Nitrate Urine Negative (Negative); Protein Urine Negative (Negative); Specific Grav Ur 1.027 (1.001-1.035); Squamous Epithelial Cell Urine Many /hpf (Few); Urobilinogen Urine Negative mg/dL (<2.0)
[2020-03-07 03:19] LABS: Alanine Aminotransferase 19 U/L (4-35); Albumin Level 4.7 g/dL (3.5-5.1); Alkaline Phosphatase 81 U/L (38-126); Anion Gap 10 mmol/L (8-16); Aspartate Amino Transferase 20 U/L (14-36); Bilirubin,Total 0.3 mg/dL (0.2-1.3); Blood Urea Nitrogen 15 mg/dL (7-17); Calcium 9.7 mg/dL (8.4-10.2); Carbon Dioxide 24 mmol/L (22-30); Chloride 106 mmol/L (98-107); Estimated CRCL calculation 90 ml/min; Estimated Glomerular Filt Rate > 60; Glucose 106 mg/dL (65-105); Potassium 3.6 mmol/L (3.4-5.0); Sodium 140 mmol/L (137-145)
[2020-03-07 03:44] LABS: Amphetamine Screen Urine Negative (Negative); Barbiturate Screen Urine Negative (Negative); Benzodiazepines Screen Urine Negative (Negative); Cannabinoid Screen Urine Negative (Negative); Cocaine Screen Urine Negative (Negative); Methadone Screen Urine Negative (Negative); Opiate Screen Urine Negative (Negative); Phencyclidine Screen Urine Negative (Negative)
[2020-03-07 03:59] VITALS: BP 124/79; PULSE 65; RESP 16; O2SAT 98
[2020-03-07 04:52] VITALS: BP 121/73; PULSE 82; RESP 16; TEMP 36.9; O2SAT 99
== END 2020-03-07 04:52 | disposition home or self-care (01) ==
PROVIDERS: Emergency Provider General Practice; PCP Internal Medicine Infectious Disease
DX: R56.9 Unspecified convulsions (principal); G43.909 Migraine, unspecified, not intractable, without status migrainosus; Z87.891 Personal history of nicotine dependence
CPT/HCPCS: 36415; 70450; 80053; 80307; 81001; 81025; 85025; 87086; 87088; 96361; 96374; 96375; 99284; J1200; J2765; J7030

== ENCOUNTER 2020-04-06 13:13 | Emergency (ER) | payer OTHER, SELFPAY ==
--- NOTE | ~2020-04-06 | US_ITS ---
EXAMINATION: US pelvic complete w TV EXAM DATE: 04/06/2020 14:38 INDICATION: Left adnexal pain. TECHNIQUE: Pelvic transabdominal and transvaginal sonogram was performed. There are multiple graysca le and Doppler images available for interpretation. There is no prior study for comparison. FINDINGS: Uterus measures 7.9 x 4.9 x 6.8 cm, and is morphologically normal. Endometrial stripe ariana sures 9 mm, within normal limits. There is no free pelvic fluid. Right adnexa: The ovary is not identified. There is no adnexal mass. Left adnexa: The ovary measures 2.3 x 1.4 x 1.6 cm and is morphologically normal. Ovarian vascular fl ow confirmed. IMPRESSION: 1. Unremarkable pelvic ultrasound exam. Reviewed, dictated and finalized at location A.
[2020-04-06 13:46] VITALS: BP 146/84; PULSE 82; RESP 18; TEMP 36.3; O2SAT 100
--- NOTE | 2020-04-06 14:29 | ED.FEMALEGU ---
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 Darcy Chairez patient notes she had felt fine prior to this denies injury or trauma urinary symptoms or vaginal discharge and is otherwise in no distress upon arrival slightly uncomfortable Related Data Home Medications Medication Instructions Recorded Confirmed No Home Medications 04/06/20 04/06/20 Allergies Allergy/AdvReac Type Severity Reaction Status Date / Time latex Allergy Severe SEVERE Verified 04/06/20 13:53 SWELLING/IRRITATION RASH pineapple Allergy Severe ANAPHYLATIC Verified 04/06/20 13:53 REACTION Review of Systems Review of Systems: All systems reviewed & are unremarkable except as noted in HPI and below PMFSH Past Medical History Medical History Anxiety Asthma Depression Hx of seizure disorder Surgical History Surgical History No history of previous surgery Social History Social History Smoking status: Former smoker Tobacco type: cigarettes Substance use: never Gender identity (if verbalized by the patient): Female Spiritual care concerns: No Exam Narrative: Exam Narrative: GENERAL: Well-appearing, well-nourished, and in no acute distress. HEAD: Normocephalic, atraumatic. EYES: PERRLA and EOMI. ENT: Nares clear, no rhinorrhea or epistaxis. Mucous membranes moist. CHEST: Clear to auscultation. No respiratory distress. No wheezes rales or rhonchi HEART: Regular rate and rhythm. No murmur heard. ABDOMEN: Soft, left adnexal tenderness to palpation, nondistended, normal active bowel sounds. EXTREMITIES: Normal range of motion. No edema. SKIN: Warm, dry, no rash. NEURO: No focal deficits. Alert and oriented x3. PSYCH: Normal mood and affect. Course Vital Signs Vital signs: Vital Signs Temperature 97.4 F L 04/06/20 13:46 Pulse Rate 82 04/06/20 13:46 Respiratory Rate 18 04/06/20 13:46 Blood Pressure 146/84 H 04/06/20 13:46 Pulse Oximetry 100 04/06/20 13:46 Temperature 97.4 F L 04/06/20 13:46 Pulse Rate 82 04/06/20 13:46 Respiratory Rate 18 04/06/20 13:46 Blood Pressure 146/84 H 04/06/20 13:46 Pulse Oximetry 100 04/06/20 13:46 MDM - Female Genitourinary MDM Narrative Medical decision making narrative: Patient with vaginal bleeding no high risk changes in the blood work or imaging patient has historically had irregular menses will be referred to her [employer] who she has appointment with them the next week patient in the room at this time in no distress Lab Data Result diagrams: 04/06/20 14:42 04/06/20 14:41 Labs: Lab Results 04/06/20 04/06/20 04/06/20 Range/Units 14:41 14:42 14:42 WBC 5.6 (4.5-10.0) K/mm3 RBC 4.58 (4.2-5.4) M/mm3 Hgb 12.3 (12.0-15.0) g/dL Hct 36.9 L (37.0-47.0) % MCV 80.6 (80-100) fl MCH 26.9 (26-34) pg MCHC 33.3 (32-36) g/dl RDW 13.5 (11.5-14.5) % Plt Count 289 (150-375) k/mm3 MPV 9.5 (7.4-10.4) fl Immature Gran % (Auto) 0.4 (0-0.5) % Neut % (Auto) 56.9 (45.5-73.1) % Lymph % (Auto) 32.6 (18.3-44.2) % [place] % (Auto) 8.3 (2.6-8.5) % Eos % (Auto) 1.3 (0-4.4) % Baso % (Auto) 0.5 (0.2-1.2) % Lymph # (Auto) 1.81 (0.9-3.2) K/mm3 [place] # (Auto) 0.5 (0.1-0.6) K/mm3 Eos # (Auto) 0.1 (0-0.3) K/mm3 Baso # (Auto) 0.0 (0.0
[2020-04-06] MEDS: KETOROLAC 30 MG/ML VIAL (*BKC) IV PUSH (14:56)
[2020-04-06 14:57] LABS: Basophils Percent Auto 0.5 % (0.2-1.2); Eosinophils Absolute Auto 0.1 K/mm3 (0-0.3); Eosinophils Percent Auto 1.3 % (0-4.4); Hematocrit 36.9 % (37.0-47.0); Hemoglobin 12.3 g/dL (12.0-15.0); Immature Granulocyte Absolute 0.02 K/mm3 (0.00-0.031); Immature Granulocyte Percent A 0.4 % (0-0.5); Lymphocytes Absolute Auto 1.81 K/mm3 (0.9-3.2); Lymphocytes Percent Auto 32.6 % (18.3-44.2); Mean Corpuscular HGB Conc 33.3 g/dl (32-36); Mean Corpuscular Hemoglobin 26.9 pg (26-34); Mean Corpuscular Volume 80.6 fl (80-100); Mean Platelet Volume 9.5 fl (7.4-10.4); Monocytes Absolute Auto 0.5 K/mm3 (0.1-0.6); Monocytes Percent Auto 8.3 % (2.6-8.5); Neutrophils Absolute Auto 3.2 K/mm3 (1.3-6.7); Neutrophils Percent Auto 56.9 % (45.5-73.1); Platelet Count Result 289 k/mm3 (150-375); Red Blood Count 4.58 M/mm3 (4.2-5.4); Red Cell Distribution Width 13.5 % (11.5-14.5); White Blood Count 5.6 K/mm3 (4.5-10.0)
[2020-04-06 15:03] LABS: Add Urine Microscopic? YES; Appearance Urine Clear (Clear); Bilirubin Urine Negative (Negative); Blood Urine 1+ (Negative); Color Urine Yellow (Yellow); Glucose Urine UA Negative (Negative); Ketones Urine Negative (Negative); Leukocyte Esterase Ur Negative LEU/UL (Negative); Mucus Urine Rare /lpf; Nitrate Urine Negative (Negative); Protein Urine Negative (Negative); RBC Urine 0-2 /hpf (0-2); Squamous Epithelial Cell Urine Few /hpf (Few); Urobilinogen Urine Negative mg/dL (<2.0); WBC Urine 0-3 /hpf
[2020-04-06 15:09] LABS: Anion Gap 9 mmol/L (8-16); Blood Urea Nitrogen 17 mg/dL (7-17); Calcium 9.6 mg/dL (8.4-10.2); Carbon Dioxide 27 mmol/L (22-30); Chloride 105 mmol/L (98-107); Estimated Glomerular Filt Rate > 60; Glucose 88 mg/dL (65-105); Potassium 4.2 mmol/L (3.4-5.0); Sodium 141 mmol/L (137-145)
== END 2020-04-06 16:10 | disposition home or self-care (01) ==
PROVIDERS: Emergency Medicine Emergency Medical Services; Emergency Provider Emergency Medicine; PCP Internal Medicine Infectious Disease
DX: N93.9 Abnormal uterine and vaginal bleeding, unspecified (principal); Z87.891 Personal history of nicotine dependence
CPT/HCPCS: 36415; 76830; 76856; 80048; 81001; 81025; 85025; 96374; 99284; J1885

== ENCOUNTER 2020-04-21 00:35 | Outpatient (CLI) | payer OTHER, SELFPAY ==
[2020-04-21 18:38] LABS: SARS-CoV-2 RNA PCR Negative
== END 2020-04-21 00:36 | disposition home or self-care (01) ==
LOC: ANHCOVIDDT 00:35
PROVIDERS: PCP Internal Medicine Infectious Disease; Visit Provider Obstetrics & Gynecology
DX: Z01.812 Encounter for preprocedural laboratory examination (principal); Z20.828 Contact with and (suspected) exposure to other viral communicable diseases
CPT/HCPCS: 87635; C9803; U0003

== ENCOUNTER 2020-04-23 01:08 | Day surgery (SDC) | payer OTHER, SELFPAY ==
[2020-04-15 09:00] VITALS: BMI 31.8
--- NOTE | 2020-04-21 11:01 | PM.IMHP ---
H&P: HPI History of Present Illness Date/Time: 04/21/20 11:01 Chief complaint: Irregular Bleeding N92.5 Narrative: Marielos Ly is a 25 year old female 3 para 3 status post tubal ligation who is admitted for hysteroscopy, dilatation curettage and endometrial ablation. She has had bleeding refractory to medical therapy. She refuses to take a a normal 3hour manipulator old. Risks and benefits reviewed Review of Systems Review of Systems: All systems reviewed & are unremarkable except as noted in HPI and below PMFSH Past Medical History Medical History Anxiety Asthma Depression Hx of seizure disorder Surgical History Surgical History No history of previous surgery Family History Family History Grandparent Diabetes mellitus Sibling Asthma Other Breast cancer Social History Social History Years smoked: 12 Smoking status: Current every day smoker Tobacco type: cigarettes Substance use: never Gender identity (if verbalized by the patient): Female Spiritual care concerns: No Meds Home Medications and Allergies Home Medications Medication Instructions Recorded Confirmed Type albuterol sulfate [ProAir HFA] 1 puff INHALATION DIRECTED PRN 04/15/20 04/15/20 History Allergies Allergy/AdvReac Type Severity Reaction Status Date / Time latex Allergy Severe SEVERE Verified 04/15/20 09:01 SWELLING/IRRITATION RASH pineapple Allergy Severe ANAPHYLATIC Verified 04/15/20 09:01 REACTION Exam Const: General: no acute distress Eyes: General: appearance normal, both eyes and all related structures Neck: Neck: supple and no JVD Thyroid: thyroid normal Resp: Effort & Inspection: normal respiratory effort Auscultation: clear to auscultation bilaterally Cardio: Rate: regular rate Rhythm: regular rhythm GI: Inspection: non-distended GI Palp: Yes Soft to palpation, No Tenderness to palpation present (GI) and No Guarding due to palpation present (GI) Auscultation: normal bowel sounds : General: Yes bladder normal to palpation External Female Exam: normal external appearance Speculum Exam - Vagina: normal vaginal discharge and No vaginal bleeding Speculum Exam - Cervix: nontender Bimanual exam- vagina & uterus: bladder normal to palpation and No Cervical tenderness present OB/external & speculum: No vaginal bleeding Skin: General skin exam: no rashes or lesions noted Extrem: General: normal to inspection and no edema Psych: Mental Status: mental status grossly normal Affect: normal affect Assessment and Plan Additional Plan impression: Excessive heavy bleeding in a patient status post tubal ligation Plan: Hysteroscopy, dilatation curettage, endometrial ablation
--- NOTE | 2020-04-23 06:44 | WPDHPUPDATE1 ---
History and Physical Update Update Date/Time: 04/23/20 06:44 History and Physical has been reviewed, including an updated exam of the patient. There are NO changes in the patient's condition. Risks, benefits, and alternatives have been discussed and questions answered. Patient agrees to proceed with procedure.
[2020-04-23 09:17] VITALS: BP 126/78; PULSE 88; RESP 20; TEMP 36.3; O2SAT 99
[2020-04-23] MEDS: ACETAMINOPHEN 500 MG TABLET 1000 MG PO (09:27)
[2020-04-23] MEDS: LACTATED RINGERS 1,000 ML 30 ML IV CONT (09:55)
--- NOTE | 2020-04-23 10:21 | WPDANESEPPF ---
Anes - Initial Pre Proc Eval Procedure: Operation Date: 04/23/20 11:00 Proposed Procedures p Hysteroscopy Dilation and Curettage With Concha Endometrial Ablation - Sudhakar Hickman MD Date/Time: 04/23/20 10:21 Surgeon: Sudhakar Hickman MD Pre Op Diagnosis: Irregular Bleeding N92.5 Patient Data Age: 25 Gender: F Height: 5 ft 5 in Weight: 85.9 kg Last Vital Signs Temp 36.3 C L 04/23/20 09:17 Pulse 88 04/23/20 09:17 Resp 20 04/23/20 09:17 BP 126/78 04/23/20 09:17 Pulse Ox 99 04/23/20 09:17 Allergies Allergy/AdvReac Type Severity Reaction Status Date / Time latex Allergy Severe SEVERE Verified 04/23/20 09:19 SWELLING/IRRITATION RASH pineapple Allergy Severe ANAPHYLATIC Verified 04/23/20 09:19 REACTION Home Medications Medication Instructions Recorded Confirmed Type albuterol sulfate [ProAir HFA] 1 puff INHALATION DIRECTED PRN 04/15/20 04/15/20 History hydrocodone-acetaminophen 1 tablet PO Q6H PRN #30 tablet 04/23/20 Rx Patient hx anesthesia problems: none Family hx anesthesia problems: none PMFSH Past Medical History Medical History Anxiety Asthma Depression Hx of seizure disorder Surgical History Surgical History No history of previous surgery Family History Family History Grandparent Diabetes mellitus Sibling Asthma Other Breast cancer Social History Social History Years smoked: 12 Smoking status: Current every day smoker Tobacco type: cigarettes Substance use: never Gender identity (if verbalized by the patient): Female Spiritual care concerns: No Anes - Eval Final PreProcedure Day of Procedure 04/23/20 10:21 Patient weight: obese Heart: regular rate and rhythm Lungs: clear to auscultation Airway: Mallampati scale class II Neurological: alert and oriented Last oral intake: >/= 8 hours ASA classification: III Emergent: no Anesthetic plan: proceed Anesthesia type and monitoring: general GIVS and standard monitoring Informed Consent: The patient's anesthetic plan and its attendant risks and benefits were discussed with the patient/family/POA. Questions were solicited and answers provided to the satisfaction of the patient/family/POA.
--- NOTE | 2020-04-23 11:12 | PM.PROC ---
Procedure Note - Detailed Date of procedure: 04/23/20 Pre-op diagnosis: Irregular Bleeding N92.5 Surgeon: Sudhakar Hickman MD Postop diagnosis: Irregular bleeding refractory to medical therapy Procedure: Hysteroscopy/ dilatation curettage plus/ endometrial ablation Anesthesia: IV sedation and local Complications: None Findings: Thick endometrial tissue with the uterus that measured 8cm EBL: 5Cc Description of procedure: The patient was prepped and draped in the normal sterile fashion and placed in the dorsal lithotomy position. Under excellent IV sedation weighted speculum was placed in posterior fornix vagina. Anterior lip of the cervix was grasped with a single-tooth tenaculum. 2.5cc of 1% xylocaine anesthesia placed at 2:48 a.m. and 10:00 a.m. respectively the cervix. Uterus sounded to 8cm per serial dilatation dilatation with fragmented dilators followed by passes the 5mm visualizing hysteroscope was undertaken. Thick irregular endometrial tissue was seen. Uterus was scraped over the entire 360?. When a grating sound was heard the this portion was finished. The min nerve instrument was placed in the uterus. It was burned for 2 minutes followed by removal. The hysteroscope was then reinserted and a good burn noted. The instruments removed and all were accounted for. All sponge, needle, instrument counts were correct. There were no immediate complications
[2020-04-23 11:13] VITALS: BP 125/65; PULSE 67; RESP 12; O2SAT 100
[2020-04-23 11:43] VITALS: BP 125/65; PULSE 62; RESP 12; O2SAT 96
[2020-04-23 12:00] VITALS: BP 127/64; PULSE 59; RESP 12
== END 2020-04-23 12:10 | disposition home or self-care (01) ==
PROVIDERS: PCP Internal Medicine Infectious Disease; Visit Provider Obstetrics & Gynecology
PROC: 0U5B8ZZ Destruction of Endometrium, Via Natural or Artificial Opening Endoscopic (ICD-10-PCS; CPT 58563; principal; 2020-04-23 11:00)
DX: N92.5 Other specified irregular menstruation (principal); F41.8 Other specified anxiety disorders; J45.909 Unspecified asthma, uncomplicated; F17.210 Nicotine dependence, cigarettes, uncomplicated; E66.9 Obesity, unspecified; Z68.31 Body mass index [BMI] 31.0-31.9, adult
CPT/HCPCS: 58563; 88305; A9270; J1100; J1885; J2250; J2405; J2704; J3010; J7030; J7120

== ENCOUNTER 2020-05-06 17:28 | Emergency (ER) | payer OTHER, SELFPAY ==
[2020-05-06 18:20] VITALS: BP 135/91; PULSE 72; RESP 17; TEMP 36.3; O2SAT 98
[2020-05-06 18:34] LABS: Basophils Percent Auto 0.3 % (0.2-1.2); Eosinophils Absolute Auto 0.1 K/mm3 (0-0.3); Eosinophils Percent Auto 0.7 % (0-4.4); Hematocrit 38.9 % (37.0-47.0); Immature Granulocyte Absolute 0.04 K/mm3 (0.00-0.031); Immature Granulocyte Percent A 0.6 % (0-0.5); Lymphocytes Absolute Auto 1.76 K/mm3 (0.9-3.2); Lymphocytes Percent Auto 25.8 % (18.3-44.2); Mean Corpuscular HGB Conc 33.4 g/dl (32-36); Mean Corpuscular Hemoglobin 27.4 pg (26-34); Mean Corpuscular Volume 82.1 fl (80-100); Mean Platelet Volume 9.1 fl (7.4-10.4); Monocytes Absolute Auto 0.5 K/mm3 (0.1-0.6); Monocytes Percent Auto 7.5 % (2.6-8.5); Neutrophils Absolute Auto 4.4 K/mm3 (1.3-6.7); Neutrophils Percent Auto 65.1 % (45.5-73.1); Platelet Count Result 290 k/mm3 (150-375); Red Blood Count 4.74 M/mm3 (4.2-5.4); Red Cell Distribution Width 13.3 % (11.5-14.5); White Blood Count 6.8 K/mm3 (4.5-10.0)
--- NOTE | 2020-05-06 20:53 | ED.FEMALEGU ---
HPI - Female Genitourinary General Chief complaint: Vaginal Bleeding Stated complaint: Vag bleed Time Seen by Provider: 05/06/20 20:44 Source: patient Mode of arrival: ambulatory Limitations: no limitations History of Present Illness HPI Narrative: 25-year-old female Patient reports she had a Concha ablation done about 2 weeks ago Today she had a postop follow-up in the office and everything was fine Subsequently around 430 she was standing up and felt something kind of pop or pull across her lower abdomen and this was followed by pretty heavy vaginal bleeding at a rate of about 1 pad an hour over the past 4 hours Having very little discomfort at this point but running out of pads is a problem She does not have any other symptoms Related Data Home Medications Medication Instructions Recorded Confirmed albuterol sulfate [ProAir HFA] 1 puff INHALATION DIRECTED PRN 04/15/20 04/15/20 Allergies Allergy/AdvReac Type Severity Reaction Status Date / Time latex Allergy Severe SEVERE Verified 04/23/20 09:19 SWELLING/IRRITATION RASH pineapple Allergy Severe ANAPHYLATIC Verified 04/23/20 09:19 REACTION Review of Systems Review of Systems: All systems reviewed & are unremarkable except as noted in HPI and below Constitutional: Constitutional: Denies chills, Denies fatigue, Denies fever(s), Denies headache(s) and Denies weakness Eyes: Eyes: Reports no additional eye complaints and Denies change in vision ENT: Denies headache(s), Denies epistaxis, Denies nasal congestion and Denies sore throat Cardiovascular: Cardiovascular: Denies chest pain, Denies leg edema, Denies palpitations and Denies dyspnea Respiratory: Respiratory: Denies cough, Denies dyspnea and Denies wheezing Gastrointestinal: Gastrointestinal: Denies abdominal pain, Denies diarrhea, Denies nausea and Denies vomiting Genitourinary: Genitourinary: Reports no additional female genitourinary complaints, Reports abnormal vaginal bleeding, Denies hematuria, Denies urinary frequency, Denies dysuria and Reports pelvic pain Musculoskeletal: Musculoskeletal: Denies deformity, Denies arthralgias, Denies joint swelling, Denies muscle weakness and Denies numbness Integumentary/Breasts: Skin/Breast: Denies rash and Denies wounds Neurologic: Denies headache(s), Denies focal weakness, Denies numbness and Denies weakness Psychiatric: Psychiatric: Reports no additional psychiatric complaints Endocrine: Endocrine: Denies fatigue and Denies palpitations Hematologic/Lymphatic: Hematologic/Lymphatic: Denies easy bleeding and Denies easy bruising Allergic/Immunologic: Allergic/Immunologic: Denies wheezing PMFSH Past Medical History Medical History (Updated 05/06/20 @ 21:21 by Aryan Alexis MD) Anxiety Asthma Depression Hx of seizure disorder Surgical History Surgical History No history of previous surgery Family History Family History Grandparent Diabetes mellitus Sibling Asthma Other Breast cancer Social History Social History Years smoked: 12 Smoking status: Current every day smoker Tobacco type: cigarettes Substance use: never Gender identity (if verbalized by the patient): Female Spiritual care concerns: No Exam Const: General: no acute distress, well developed and awake Nutritional Appearance: well nourished Orientation/consciousness: patient oriented x3 (alert) Limitations: no limitations HENMT: Head: normocephalic and atraumatic Ears: external ears normal General nose exam: No nasal discharge present and no epistaxis Face and sinus: face symmetric Eyes: Conjunctivae: conjunctivae normal Sclera: sclerae normal EOM: EOMs intact bilaterally Neck: Neck: normal visual inspection, supple and no JVD Chest: Chest palpation & inspection: deferr
[2020-05-06 21:46] VITALS: BP 127/89; PULSE 72; RESP 16; TEMP 36.7; O2SAT 98
== END 2020-05-06 21:47 | disposition home or self-care (01) ==
LOC: ANHED 21:34
PROVIDERS: Emergency Medicine; Emergency Provider Emergency Medicine; PCP Internal Medicine Infectious Disease
DX: N93.9 Abnormal uterine and vaginal bleeding, unspecified (principal); J45.909 Unspecified asthma, uncomplicated; F17.210 Nicotine dependence, cigarettes, uncomplicated
CPT/HCPCS: 36415; 85025; 86850; 86900; 86901; 99284

== ENCOUNTER 2020-05-16 18:53 | Emergency (ER) | payer OTHER, SELFPAY ==
--- NOTE | ~2020-05-16 | XR_ITS ---
EXAMINATION: XR shoulder LT min 2V INDICATION: Left shoulder pain TECHNIQUE: Four views of the left shoulder are submitted on five radiographs. COMPARISON: None FINDINGS: Normal alignment. No fracture. Glenohumeral and acromioclavicular joint spaces are normal. Soft tissues are unremarkable. IMPRESSION: 1. No acute osseous abnormality. Reviewed, dictated and finalized at location A. IVING DOCK CHECKER
[2020-05-16 18:53] VITALS: PULSE 78; RESP 18; TEMP 36.6; O2SAT 98
[2020-05-16 18:56] VITALS: PULSE 78
--- NOTE | 2020-05-16 19:02 | ED.SEIZURE ---
HPI - Seizure General Chief Complaint: Seizure Stated Complaint: seizure Time Seen by Provider: 05/16/20 19:02 Source: patient and EMS Mode of arrival: EMS Limitations: no limitations History of Present Illness HPI Narrative: Patient is a 25-year-old female with a history of seizure disorder, taking topiramate, who presents for evaluation of breakthrough seizure. Patient states she was at work this evening, attempting to make a sandwich, when suddenly she felt warm, flushed, had tunnel vision and then experienced a seizure. Patient has no recollection of this, this was witnessed by a colleague. No tongue biting or urinary incontinence. Seizure lasted approximately 1 minute. EMS was called, patient transported to our facility, at the time of my assessment she is not postictal. She is alert and oriented, reporting mild left shoulder pain. She denies headache pain or neck pain. She has not been compliant with her Topamax the past two days due to feeling stressed. She follows with Dr. Dolan. She denies recent illnesses, fever, nausea, vomiting, no urinary symptoms. She denies drug use. Seizure History: Yes (02/2020- STRESS AND MIGRAINE INDUCED PER PATIENT) Related Data Home Medications Medication Instructions Recorded Confirmed topiramate 05/16/20 Allergies Allergy/AdvReac Type Severity Reaction Status Date / Time latex Allergy Severe SEVERE Verified 05/16/20 19:52 SWELLING/IRRITATION RASH pineapple Allergy Severe ANAPHYLATIC Verified 05/16/20 19:52 REACTION Review of Systems Review of Systems: Narrative: CONSTITUTIONAL: Denies fever, chills, or sweats. EYES: Denies visual changes, redness, or discharge. ENT: Denies rhinorrhea, congestion, sore throat, or otalgia. CARDIOVASCULAR: Denies chest pain, palpitations, or edema. RESPIRATORY: Denies cough or dyspnea. GASTROINTESTINAL: Denies abdominal pain, nausea, vomiting, or diarrhea. GENITOURINARY: Denies dysuria or hematuria. SKIN: Denies rash or itching. MUSCULOSKELETAL: Reports mild, aching left shoulder pain, worse with movement NEUROLOGIC: Denies headache, numbness, or weakness. PSYCHIATRIC: Reports anxiety PMFSH Past Medical History Medical History (Updated 05/16/20 @ 20:48 by Gia Hart MD) Anxiety Asthma Depression Hx of seizure disorder Surgical History Surgical History No history of previous surgery Family History Family History Grandparent Diabetes mellitus Sibling Asthma Other Breast cancer Social History Social History Years smoked: 12 Smoking status: Current every day smoker Tobacco type: cigarettes Substance use: never Gender identity (if verbalized by the patient): Female Spiritual care concerns: No Exam Narrative: Exam Narrative: GENERAL: Awake, alert, conversant HEAD: Normocephalic, atraumatic. EYES: PERRLA and EOMI. ENT: Nares clear, no rhinorrhea or epistaxis. Mucous membranes moist. NECK: Supple. CHEST: No respiratory distress, breathing even and non labored HEART: Regular rate, sinus rhythm ABDOMEN:Non distended, non tender EXTREMITIES: Normal range of motion. No edema. SKIN: Warm, dry, no rash. NEURO:No focal deficits. Alert and oriented x3 Course Vital Signs Vital signs: Vital Signs Temperature 36.6 C 05/16/20 18:53 Pulse Rate 78 05/16/20 18:53 Respiratory Rate 18 05/16/20 18:53 Pulse Oximetry 98 05/16/20 18:53 Temperature 36.6 C 05/16/20 18:53 Pulse Rate 76 05/16/20 19:42 Respiratory Rate 22 H 05/16/20 19:42 Blood Pressure 142/86 H 05/16/20 19:42 Pulse Oximetry 98 05/16/20 19:42 MDM - Seizure MDM Narrative Medical decision making narrative: Patient presented for evaluation of breakthrough seizure in the setting of missing 2 days of her antiepileptic medication. The time of ass
--- NOTE | 2020-05-16 19:08 | ECG_ITS ---
Measurements Intervals [place] Rate: 79 P: 0 IA: 160 QRS: 22 QRSD: 87 T: 15 QT: 350 QTc: 402 Interpretive Statements SINUS RHYTHM WITH SINUS ARRHYTHMIA BORDERLINE T WAVE ABNORMALITY- INFERIOR LEADS BASELINE ARTIFACT- AVF, V4-V5 BORDERLINE ECG Electronically Signed On 05-17-2020 8:38:30 [employer] FARM[employer] by Atul Erazo D.O.
[2020-05-16 19:42] VITALS: BP 142/86; PULSE 76; RESP 22; O2SAT 98
[2020-05-16] MEDS: ACETAMINOPHEN 500 MG TABLET 1000 MG PO (19:42)
[2020-05-16] MEDS: SODIUM CHLORIDE 0.9% IV 1,000 ML 999 ML IV CONT (19:42)
[2020-05-16 19:51] LABS: Basophils Percent Auto 0.5 % (0.2-1.2); Eosinophils Percent Auto 0.6 % (0-4.4); Hematocrit 35.6 % (37.0-47.0); Hemoglobin 11.9 g/dL (12.0-15.0); Immature Granulocyte Absolute 0.02 K/mm3 (0.00-0.031); Immature Granulocyte Percent A 0.3 % (0-0.5); Lymphocytes Absolute Auto 1.88 K/mm3 (0.9-3.2); Lymphocytes Percent Auto 29.3 % (18.3-44.2); Mean Corpuscular HGB Conc 33.4 g/dl (32-36); Mean Corpuscular Volume 80.9 fl (80-100); Mean Platelet Volume 9.4 fl (7.4-10.4); Monocytes Absolute Auto 0.4 K/mm3 (0.1-0.6); Monocytes Percent Auto 6.5 % (2.6-8.5); Neutrophils Percent Auto 62.8 % (45.5-73.1); Platelet Count Result 293 k/mm3 (150-375); Red Cell Distribution Width 12.8 % (11.5-14.5); White Blood Count 6.4 K/mm3 (4.5-10.0)
[2020-05-16 20:02] LABS: Platelet Estimate Adequate (Adequate)
[2020-05-16 20:03] LABS: Alanine Aminotransferase 15 U/L (4-35); Albumin Level 4.4 g/dL (3.5-5.1); Alkaline Phosphatase 71 U/L (38-126); Anion Gap 10 mmol/L (8-16); Aspartate Amino Transferase 19 U/L (14-36); Atypical Lymphocytes Present; Bilirubin,Total 0.3 mg/dL (0.2-1.3); Blood Urea Nitrogen 13 mg/dL (7-17); Carbon Dioxide 26 mmol/L (22-30); Chloride 107 mmol/L (98-107); Estimated CRCL calculation 101 ml/min; Estimated Glomerular Filt Rate > 60; Glucose 94 mg/dL (65-105); Ovalocytes 1+ (NORMAL); Sodium 143 mmol/L (137-145)
[2020-05-16 20:09] LABS: Add Urine Microscopic? YES; Appearance Urine Cloudy (Clear); Bilirubin Urine Negative (Negative); Blood Urine 2+ (Negative); Color Urine Yellow (Yellow); Glucose Urine UA Negative (Negative); Ketones Urine Negative (Negative); Leukocyte Esterase Ur Trace LEU/UL (Negative); Mucus Urine Heavy /lpf; Nitrate Urine Negative (Negative); Protein Urine 1+ mg/dL (Negative); Specific Grav Ur 1.026 (1.001-1.035); Squamous Epithelial Cell Urine Many /hpf (Few); Urobilinogen Urine Negative mg/dL (<2.0)
[2020-05-16 20:23] LABS: Amphetamine Screen Urine Negative (Negative); Barbiturate Screen Urine Negative (Negative); Benzodiazepines Screen Urine Negative (Negative); Cannabinoid Screen Urine Negative (Negative); Cocaine Screen Urine Negative (Negative); Methadone Screen Urine Negative (Negative); Opiate Screen Urine Negative (Negative); Phencyclidine Screen Urine Negative (Negative)
[2020-05-16 21:18] VITALS: BP 116/89; PULSE 107; RESP 20; O2SAT 99
[2020-05-19 13:36] LABS: Topiramate <0.5 mcg/mL (***)
== END 2020-05-16 21:19 | disposition home or self-care (01) ==
PROVIDERS: Emergency Provider Emergency Medicine; PCP Internal Medicine Infectious Disease
DX: G40.909 Epilepsy, unspecified, not intractable, without status epilepticus (principal); F17.210 Nicotine dependence, cigarettes, uncomplicated; R94.31 Abnormal electrocardiogram [ECG] [EKG]
CPT/HCPCS: 36415; 73030; 80053; 80201; 80307; 81001; 81025; 85025; 87086; 87088; 87147; 93005; 99283; A9270; J7030

== ENCOUNTER 2020-07-15 12:47 | Outpatient (CLI) | payer OTHER, SELFPAY ==
--- NOTE | ~2020-07-15 | MR_ITS ---
EXAMINATION: MR brain/brain stem wo con DATE: 07/15/2020 15:09 INDICATION: Seizures. TECHNIQUE: Magnetic resonance imaging (MRI) of the brain and brainstem was performed without intraven ous contrast. Sequences included sagittal and axial T1-weighted FSE, axial diffusion-weighted FS EPI, axial T2*-weighted GRE, axial T2-weighted FLAIR Propeller, axial T2-weighted Propeller, coronal T2-w eighted FLAIR, and coronal T1-weighted 3D FSPGR. Apparent diffusion coefficient (ADC) maps were creat ed. COMPARISON: Head CT 03/07/2020 FINDINGS: There is no intracranial hemorrhage, acute infarction, or abnormal intracranial mass lesion . The hippocampi are normal and symmetric. The ventricles are normal in size. The paranasal sinuses a re clear. The orbits are normal. The mastoid air cells are normal. IMPRESSION: 1. Normal brain. Reviewed, dictated and finalized at location A. ANISM ASSEMBLER IMPRESSION: 1. Normal brain.
--- NOTE | 2020-07-16 12:26 | WPDNEUROLOGY ---
Neurology EEG Report General Information Date of Study: 07/15/20 TEST eegh DIAGNOSIS seizures CONDITION OF RECORDING awake drowsy and sleep EEG NUMBER 21-09 CLINICAL HISTORY seizures EEG DESCRIPTION basic resting occipital frequency consists of low voltage 9 to 11 hertz per 2nd alpha admixed with low-voltage 15 to 18 hertz per 2nd beta. Bilateral symmetrical sleep activity seen during sleep. Hyperventilation not done. Photic stimulation produced normal drive. Non paroxysmal. Nonfocal. Nonlateralizing. IMPRESSION No significant abnormalities noted
== END 2020-07-15 12:48 | disposition home or self-care (01) ==
LOC: ANHIMG 12:48
PROVIDERS: PCP Internal Medicine Infectious Disease; Visit Provider Psychiatry & Neurology Neurology
DX: R56.9 Unspecified convulsions (principal)
CPT/HCPCS: 70551; 95816

== ENCOUNTER 2020-09-18 21:16 | Emergency (ER) | payer OTHER, SELFPAY ==
--- NOTE | ~2020-09-18 | CT_ITS ---
EXAMINATION: CT abdomen pelvis w con DATE: 09/18/2020 23:25 INDICATION: Right upper quadrant abdominal pain. TECHNIQUE: Computed tomography (CT) of the abdomen and pelvis was performed with 100 mL Omnipaque 350 intravenous contrast. Automated exposure control and iterative reconstruction technique were employe d. The dose-length product was 543.32 mGy-cm. COMPARISON: None. FINDINGS: The visualized portions of the lung bases are clear without pneumonia or pleural effusion. The heart size is normal. No pericardial effusion. There is an 8 mm low-attenuation lesion in right h epatic lobe, likely benign. The gallbladder is decompressed. There is a 9 mm low-attenuation lesion i n the spleen, likely benign. The pancreas and adrenal glands are normal. There is a focus of subcenti meter scarring in right kidney. There are 2 stones in right kidney with the larger measuring 5 mm. Th ere are 3 mm and 2 mm stones in left kidney. There are no dilated loops of bowel. The appendix is nor mal. There are no pathologically enlarged lymph nodes. There is no free intraperitoneal fluid. There is mild lumbar spondylosis. IMPRESSION: 1. Bilateral nonobstructing kidney stones. Reviewed, dictated and finalized at location A.
[2020-09-18 21:18] VITALS: BP 145/92; PULSE 92; RESP 16; TEMP 36.6; O2SAT 100
--- NOTE | 2020-09-18 21:25 | ED.FEVER ---
HPI - Fever General Chief Complaint: Fever Stated Complaint: fever, n/v, abd pain Time Seen by Provider: 09/18/20 21:25 History of Present Illness HPI Narrative: 25 yo female presents fro home with multiple complaints. She reports that today while at work she had a fever 0f 101.1. Later she developed RUQ abdominal pain and vomited. The pain radiates into her back. She reports that she has had self diagnosed gall bladder problems for a long time. Related Data Allergies Allergy/AdvReac Type Severity Reaction Status Date / Time No Known Allergies Allergy Verified 09/18/20 21:21 Review of Systems Review of Systems: All systems reviewed & are unremarkable except as noted in HPI and below Constitutional: Constitutional: Reports chills and Reports fever(s) Cardiovascular: Cardiovascular: Denies chest pain Respiratory: Respiratory: Denies dyspnea Gastrointestinal: Gastrointestinal: Reports abdominal pain, Reports nausea and Reports vomiting Genitourinary: Genitourinary: Denies hematuria and Denies dysuria Musculoskeletal: Musculoskeletal: Reports back pain Neurologic: Reports system reviewed and no additional complaints, except as documented Psychiatric: Psychiatric: Reports anxiety and Reports depression [facility] [place] Past Medical History Medical History (Updated 09/18/20 @ 23:57 by Johnathon Hensley MD) Anxiety Depression Social History Social History (Updated 09/18/20 @ 21:47 by Johnathon Hensley MD) Substance use: never Exam Const: General: no acute distress and alert Nutritional Appearance: obese Orientation/consciousness: patient oriented x3 HENMT: Head: normal to inspection Resp: Effort & Inspection: normal respiratory effort Auscultation: clear to auscultation bilaterally Cardio: Rate: regular rate Rhythm: regular rhythm GI: GI Palp: Yes Soft to palpation, Yes Tenderness to palpation present (GI) (RUQ), Yes Guarding due to palpation present (GI) and No Rebound tenderness present Back/Spine/Pelvis: Back: CVA tenderness (right) Skin: General skin exam: normal color Neuro: General: patient oriented x3, moves all extremities, no focal motor deficits and CN's II-XI intact bilaterally Speech: normal speech Gait exam (Neuro): Normal gait present Extrem: General: normal to inspection Course Vital Signs Vital signs: Vital Signs Temperature 36.6 C 09/18/20 21:18 Pulse Rate 92 09/18/20 21:18 Respiratory Rate 16 09/18/20 21:18 Blood Pressure 145/92 H 09/18/20 21:18 Pulse Oximetry 100 09/18/20 21:18 Temperature 36.7 C 09/18/20 22:00 Pulse Rate 76 09/18/20 23:38 Respiratory Rate 21 H 09/18/20 23:38 Blood Pressure 117/75 09/18/20 23:38 Pulse Oximetry 99 09/18/20 23:38 MDM - Fever MDM Narrative Medical decision making narrative: Labs reassuring. CT read as possible colitis. This does not fit well with her presentation ,so most likely artifact. Differential Diagnosis Differential diagnosis: Likely gastroenteritis, community acquired pneumonia, pyelonephritis, viral infection, sepsis and other (cholecystitis) Medical Records Attestation: I reviewed the patient's medical records. Lab Data Attestation: I reviewed the patient's lab results. Result diagrams: 09/18/20 22:16 09/18/20 22:16 Labs: Lab Results 09/18/20 09/18/20 09/18/20 Range/Units 22:16 22:16 22:16 WBC 5.5 (4.5-10.0) K/mm3 RBC 4.73 (4.2-5.4) M/mm3 Hgb 13.2 (12.0-15.0) g/dL Hct 39.3 (37.0-47.0) % MCV 83.1 (80-100) fl MCH 27.9 (26-34) pg MCHC 33.6 (32-36) g/dl RDW 12.8 (11.5-14.5) % Plt Count 277 (150-375) k/mm3 MPV 9.3 (7.4-10.4) fl Immature Gran % (Auto) 0.4 (0-0.5) % Neut % (Auto) 51.6 (45.5-73.1) % Lymph % (Auto) 37.8 (18.3-44.2) % [place] % (Auto) 8.2 (2.6-8.5) % Eos % (Auto) 1.5 (0-4.4) % Baso % (Auto) 0.5 (0.2-1.2) % Lymph # (Auto) 2.07 (0.9-3.2) K/mm3 [place] # (Auto) 0.
[2020-09-18 22:00] VITALS: BP 127/79; PULSE 87; RESP 15; TEMP 36.7; O2SAT 98
--- NOTE | 2020-09-18 22:11 | PC.NURSE ---
Pt aware of the need for UA and states she does not have to urinate at this time. UA cup provided.
[2020-09-18] MEDS: ONDANSETRON INJ 4 MG/2 ML VIAL IV PUSH (22:15)
[2020-09-18 22:16] VITALS: O2SAT 98
[2020-09-18] MEDS: SODIUM CHLORIDE 0.9% IV 1,000 ML 999 ML IV CONT (22:18)
[2020-09-18 22:21] LABS: Basophils Percent Auto 0.5 % (0.2-1.2); Eosinophils Absolute Auto 0.1 K/mm3 (0-0.3); Eosinophils Percent Auto 1.5 % (0-4.4); Hematocrit 39.3 % (37.0-47.0); Hemoglobin 13.2 g/dL (12.0-15.0); Immature Granulocyte Absolute 0.02 K/mm3 (0.00-0.031); Immature Granulocyte Percent A 0.4 % (0-0.5); Lymphocytes Absolute Auto 2.07 K/mm3 (0.9-3.2); Lymphocytes Percent Auto 37.8 % (18.3-44.2); Mean Corpuscular HGB Conc 33.6 g/dl (32-36); Mean Corpuscular Hemoglobin 27.9 pg (26-34); Mean Corpuscular Volume 83.1 fl (80-100); Mean Platelet Volume 9.3 fl (7.4-10.4); Monocytes Absolute Auto 0.5 K/mm3 (0.1-0.6); Monocytes Percent Auto 8.2 % (2.6-8.5); Neutrophils Absolute Auto 2.8 K/mm3 (1.3-6.7); Neutrophils Percent Auto 51.6 % (45.5-73.1); Platelet Count Result 277 k/mm3 (150-375); Red Blood Count 4.73 M/mm3 (4.2-5.4); Red Cell Distribution Width 12.8 % (11.5-14.5); White Blood Count 5.5 K/mm3 (4.5-10.0)
[2020-09-18 22:36] LABS: Lactic Acid Reflex 0.8 mmol/L (0.7-2.1)
[2020-09-18 22:40] LABS: Alanine Aminotransferase 14 U/L (4-35); Albumin Level 4.6 g/dL (3.5-5.1); Alkaline Phosphatase 79 U/L (38-126); Anion Gap 9 mmol/L (8-16); Aspartate Amino Transferase 25 U/L (14-36); Bilirubin,Total 0.4 mg/dL (0.2-1.3); Blood Urea Nitrogen 14 mg/dL (7-17); Calcium 9.2 mg/dL (8.4-10.2); Carbon Dioxide 29 mmol/L (22-30); Chloride 104 mmol/L (98-107); Estimated CRCL calculation 88 ml/min; Estimated Glomerular Filt Rate > 60; Glucose 92 mg/dL (65-105); Lipase 74 U/L (23-300); Potassium 3.8 mmol/L (3.4-5.0); Sodium 142 mmol/L (137-145)
--- NOTE | 2020-09-18 22:53 | PC.NURSE ---
Pt ambulated to restroom to provide urine specimen. UA collected and sent to lab.
[2020-09-18 22:56] VITALS: BP 116/66; PULSE 81; RESP 20; O2SAT 98
[2020-09-18 23:00] LABS: Add Urine Microscopic? NO; Appearance Urine Clear (Clear); Bilirubin Urine Negative (Negative); Blood Urine Negative (Negative); Color Urine Yellow (Yellow); Glucose Urine UA Negative (Negative); Ketones Urine Negative (Negative); Leukocyte Esterase Ur Negative LEU/UL (Negative); Nitrate Urine Negative (Negative); Protein Urine Negative (Negative); Specific Grav Ur 1.019 (1.001-1.035); Urobilinogen Urine Negative mg/dL (<2.0)
--- NOTE | 2020-09-18 23:23 | PC.NURSE ---
Pt to and from CT and is now back in room and resting on cart. EDMD aware of pt continued complaint of pain rated 8/10 and placed and order for fentanyl.
[2020-09-18] MEDS: fentaNYL CITRATE INJ (*CRX) 100 MCG/2 ML VIAL 25 MCG IV PUSH (23:31)
--- NOTE | 2020-09-18 23:37 | PC.NURSE ---
Pt resting on cart. Family member remains at bedside. Pain medication administered.
[2020-09-18 23:38] VITALS: BP 117/75; PULSE 76; RESP 21; O2SAT 99
[2020-09-19] MEDS: METOCLOPRAMIDE HCL INJ 10 MG/2 ML VIAL IV PUSH (00:07)
[2020-09-19 00:28] VITALS: BP 105/65; PULSE 72; RESP 16; TEMP 36.7; O2SAT 98
[2020-09-19 00:30] VITALS: BP 105/65; PULSE 72; RESP 16; TEMP 36.7; O2SAT 98
--- NOTE | 2020-09-19 00:31 | PC.NURSE ---
Pt dc home with spouse alert, stable and in no obvious distress. Pt able to ambulate to waiting room without difficulty. Pt advised to follow up with referred MD and return to ED if symptoms worsen; pt voices her understanding.
== END 2020-09-19 00:31 | disposition home or self-care (01) ==
PROVIDERS: Emergency Provider Emergency Medicine; PCP Internal Medicine Infectious Disease
DX: R10.13 Epigastric pain (principal)
CPT/HCPCS: 36415; 74177; 80053; 81003; 81025; 83605; 83690; 85025; 96361; 96365; 96374; 96375; 99284; J0131; J2405; J2765; J3010; J7030; Q9967

== ENCOUNTER → 2020-09-21 00:51 | Outpatient (CLI) | payer OTHER, SELFPAY ==
[2020-09-21 18:32] LABS: SARS-CoV-2 RNA PCR Negative
== END ==
PROVIDERS: PCP Internal Medicine Infectious Disease; Visit Provider Obstetrics & Gynecology
DX: Z01.812 Encounter for preprocedural laboratory examination (principal); Z20.822 Contact with and (suspected) exposure to COVID-19
CPT/HCPCS: C9803; U0003; U0005

== ENCOUNTER 2020-09-23 08:46 | Outpatient (CLI) | payer OTHER, SELFPAY ==
[2020-09-23 09:55] LABS: Basophils Percent Auto 0.5 % (0.2-1.2); Eosinophils Absolute Auto 0.1 K/mm3 (0-0.3); Eosinophils Percent Auto 1.5 % (0-4.4); Hemoglobin 12.7 g/dL (12.0-15.0); Immature Granulocyte Absolute 0.02 K/mm3 (0.00-0.031); Immature Granulocyte Percent A 0.3 % (0-0.5); Lymphocytes Absolute Auto 1.89 K/mm3 (0.9-3.2); Lymphocytes Percent Auto 30.7 % (18.3-44.2); Mean Corpuscular HGB Conc 33.4 g/dl (32-36); Mean Corpuscular Hemoglobin 27.7 pg (26-34); Mean Platelet Volume 9.3 fl (7.4-10.4); Monocytes Absolute Auto 0.6 K/mm3 (0.1-0.6); Monocytes Percent Auto 9.1 % (2.6-8.5); Neutrophils Absolute Auto 3.6 K/mm3 (1.3-6.7); Neutrophils Percent Auto 57.9 % (45.5-73.1); Platelet Count Result 262 k/mm3 (150-375); Red Blood Count 4.58 M/mm3 (4.2-5.4); Red Cell Distribution Width 13.1 % (11.5-14.5); White Blood Count 6.2 K/mm3 (4.5-10.0)
== END 2020-09-23 08:47 | disposition home or self-care (01) ==
LOC: ANHSURGERY 08:51
PROVIDERS: PCP Internal Medicine Infectious Disease; Visit Provider Obstetrics & Gynecology
DX: N92.6 Irregular menstruation, unspecified (principal); R06.89 Other abnormalities of breathing; Z01.818 Encounter for other preprocedural examination
CPT/HCPCS: 36415; 85025; 86850; 86900; 86901

== ENCOUNTER 2020-09-24 00:56 | Day surgery (SDC) | payer OTHER, SELFPAY ==
[2020-09-15 13:40] VITALS: BMI 30.2
--- NOTE | 2020-09-21 10:55 | PM.IMHP ---
H&P: HPI History of Present Illness Date/Time: 09/21/20 10:55 a 25-year-old 3 para 3 who is admitted for robotic total vaginal hysterectomy and bilateral salpingectomy secondary to failed ablation. She has pain, discomfort, enlarged uterus and continues to bleed despite ablation. She has not responded well to hormonal therapy in the past. She also has a 2nd to 3rd degree prolapse. Risks and benefits were all reviewed Chief Complaint: pelvic pain and prolapse / / bleeding refractory to medical therapy Review of Systems Review of Systems: All systems reviewed & are unremarkable except as noted in HPI and below PMFSH Past Medical History Medical History Anxiety Asthma Depression Hx of seizure disorder Surgical History Surgical History No history of previous surgery Family History Family History Grandparent Diabetes mellitus Sibling Asthma Other Breast cancer Social History Social History Years smoked: 12 Smoking status: Current every day smoker Tobacco type: e-cigarettes/vaping Additional smoking assessment comments: STATES I'M CONSTANTLY VAPING ALL DAY LONG Substance use: never Gender identity (if verbalized by the patient): Female Spiritual care concerns: No Meds Home Medications and Allergies Home Medications Medication Instructions Recorded Confirmed Type topiramate 200 mg PO BID 30 Days #60 tablet 05/16/20 09/15/20 Rx albuterol sulfate [ProAir HFA] 1 - 2 inh INHALATION Q4H PRN 09/15/20 09/15/20 History Allergies Allergy/AdvReac Type Severity Reaction Status Date / Time latex Allergy Severe SEVERE Verified 09/15/20 13:37 SWELLING/IRRITATION/RASH pineapple Allergy Severe ANAPHYLATIC Verified 09/15/20 13:37 REACTION Exam Const: General: no acute distress Eyes: General: appearance normal, both eyes and all related structures Neck: Neck: supple and no JVD Thyroid: thyroid normal Resp: Effort & Inspection: normal respiratory effort Auscultation: clear to auscultation bilaterally Cardio: Rate: regular rate Rhythm: regular rhythm GI: Inspection: non-distended GI Palp: Yes Soft to palpation, No Tenderness to palpation present (GI) and No Guarding due to palpation present (GI) Auscultation: normal bowel sounds : General: Yes bladder normal to inspection External Female Exam: normal external appearance Speculum Exam - Vagina: normal appearance of the vagina Speculum Exam - Cervix: normal appearance of the cervix Bimanual exam- vagina & uterus: Cervical tenderness present, boggy and enlarged Skin: General skin exam: no rashes or lesions noted Extrem: General: normal to inspection and no edema Psych: Mental Status: mental status grossly normal Affect: normal affect Assessment and Plan Additional Plan impression: Enlarged uterus with prolapse and continued bleeding despite ablation and tubal ligation. Plan: Robotic total vaginal hysterectomy and bilateral salpingectomy
[2020-09-24] VITALS (8 sets, daily range): BP systolic 116–132; BP diastolic 62–90; PULSE 56–82; RESP 15–21; TEMP 36.2–37; O2SAT 99–100
--- NOTE | 2020-09-24 05:58 | WPDHPUPDATE1 ---
History and Physical Update Update Date/Time: 09/24/20 05:58 History and Physical has been reviewed, including an updated exam of the patient. There are NO changes in the patient's condition. Risks, benefits, and alternatives have been discussed and questions answered. Patient agrees to proceed with procedure.
[2020-09-24] MEDS: ACETAMINOPHEN 500 MG TABLET 1000 MG PO (08:33)
[2020-09-24] MEDS: LACTATED RINGERS 1,000 ML 30 ML IV CONT ×2 (08:33→11:27)
[2020-09-24] MEDS: KETOROLAC 15 MG/ML VIAL (*BKC) IV PUSH (08:33)
--- NOTE | 2020-09-24 09:06 | WPDANESEPPF ---
Anes - Initial Pre Proc Eval Procedure: Operation Date: 09/24/20 09:45 Proposed Procedures p Robotic Assisted Total Vaginal Hysterectomy, Bilateral Salpingectomy - Sudhakar Hickman MD Date/Time: 09/24/20 09:06 Surgeon: Sudhakar Hickman MD Pre Op Diagnosis: excessive bleeding, failed ablation Patient Data Age: 25 Gender: F Height: 5 ft 5 in Weight: 84.4 kg Last Vital Signs Temp 97.3 F L 09/24/20 07:51 Pulse 65 09/24/20 07:51 Resp 20 09/24/20 07:51 BP 119/86 09/24/20 07:51 Pulse Ox 99 09/24/20 07:51 Allergies Allergy/AdvReac Type Severity Reaction Status Date / Time latex Allergy Severe SEVERE Verified 09/24/20 08:18 SWELLING/IRRITATION/RASH pineapple Allergy Severe ANAPHYLATIC Verified 09/24/20 08:18 REACTION Home Medications Medication Instructions Recorded Confirmed Type topiramate 200 mg PO BID 30 Days #60 tablet 05/16/20 09/15/20 Rx albuterol sulfate [ProAir HFA] 1 - 2 inh INHALATION Q4H PRN 09/15/20 09/15/20 History hydrocodone-acetaminophen 1 tablet PO Q6H PRN #30 tablet 09/24/20 Rx Patient hx anesthesia problems: none Family hx anesthesia problems: none PMFSH Past Medical History Medical History (Updated 09/24/20 @ 05:59 by Sudhakar Hickman MD) Anxiety Asthma Depression Hx of seizure disorder Surgical History Surgical History No history of previous surgery Family History Family History Grandparent Diabetes mellitus Sibling Asthma Other Breast cancer Social History Social History Years smoked: 12 Smoking status: Current every day smoker Tobacco type: e-cigarettes/vaping Additional smoking assessment comments: STATES I'M CONSTANTLY VAPING ALL DAY LONG Alcohol use details: 1 DRINK EVERY 2 MONTHS Substance use: never Living arrangements: with friend(s) Gender identity (if verbalized by the patient): Female Spiritual care concerns: No Anes - Eval Final PreProcedure Day of Procedure 09/24/20 09:06 Patient weight: overweight Heart: regular rate and rhythm Lungs: clear to auscultation Airway: Mallampati scale class 1 Neurological: alert and oriented Last oral intake: >/= 8 hours ASA classification: III Emergent: no Anesthetic plan: proceed Anesthesia type and monitoring: general ETT and standard monitoring Informed Consent: The patient's anesthetic plan and its attendant risks and benefits were discussed with the patient/family/POA. Questions were solicited and answers provided to the satisfaction of the patient/family/POA.
[2020-09-24] MEDS: ceFAZolin 2 GM/D5W 50 ML 2 GM/50 ML BAG IVPB (10:04)
--- NOTE | 2020-09-24 11:12 | PM.PROC ---
Procedure Note - Detailed Date of procedure: 09/24/20 Pre-op diagnosis: excessive bleeding, failed ablation Surgeon: Sudhakar Hickman MD Postop diagnosis: Excessive bleeding/failed endometrial ablation Procedure: Robotic total vaginal hysterectomy and bilateral salpingectomies Anesthesia: General endotracheal Complications: None Findings: Enlarged uterus. Tubes status post tubal ligation. Normal-appearing ovaries bilaterally Description of procedure: The patient was prepped and draped in the normal sterile fashion and placed in the dorsal lithotomy position. Under excellent general endotracheal anesthesia weighted speculum placed in posterior fornix of vagina. Anterior lip of the cervix grasped with single-tooth tenaculum and the uterus sounded to 10cm. Serial dilatation with fragmented dilators performed followed by passes of the 10. ARIANA and the 3. Cold cup. Next the 16 Wolof catheter was placed in the bladder and drained of clear urine. The weighted speculum was removed and the gloves were changed. A supraumbilical incision made the Veress needle passed in the abdomen. The abdomen filled with CO2 gas [id number]. The 8mm trocar advanced in the abdomen downside visualized. No injury seen patient placed in Trendelenburg and right and left lateral quadrant incisions made. The 8mm trocars advanced under direct visualization assuring no injury. Right upper quadrant incision made and the 8mm trocar advanced under direct visualization assuring no injury. The robot was docked. Attention was turned to the executive assistant to general counsel. The round ligament was grasped, and burned an anterior incision was made resecting the bladder caudally away from the cervix and uterus to the opposite round ligament was clamped, burned, cut. Next the left fallopian tube was sharply dissected away from the ovary and tube complex. This was repeated on the contralateral side to remove the right ovary the left utero-ovarian ligament was skeletonized to conserve the left ovary. This was clamped, burned, cut and brought to the level of the previously cut round ligament. In like fashion conserving the right ovary utero-ovarian ligament was clamped, burned, cut and brought to the level of the previously cut round ligament. The left cardinal and broad ligaments were serially skeletonized brought down the lateral edge of the uterus with sharp dissection and cautery. The blood vessels on the left were then serially skeletonized clamped individually cut and burned. In like fashion the cardinal broad ligaments on the right were serially skeletonized brought down lateral edge of the uterus these were clamped, burned, cut until the uterine vessels could be seen on the right these were individually clamped, burned, cut. Blanching the uterus was seen in a colpotomy incision was made cervix uterus and tubes removed through the vagina. The uterus was enlarged and irregular. The vagina was then closed with continuous running 0V lock from lateral edge to lateral edge and back to the midline. Irrigation undertaken to clear blood loss estimated 25cc the robot was undocked. The gas removed from the abdomen. The incisions closed with 4 Monocryl and glue. The instruments removed from the vagina. All sponge, needle, instrument counts were correct. There were no immediate complications
[2020-09-24] MEDS: fentaNYL CITRATE INJ (*CRX) 100 MCG/2 ML VIAL 25 MCG IV PUSH (11:57)
--- NOTE | 2020-09-24 12:40 | PC.NURSE ---
PT arrived on unit via bed accompanied by significant other and taken to to room 283. PT oriented to room and surrounding area. PT introductions made and plan of care discussed per post op call or contact centre team leader surgery, pain management, daily care activities. PT verbalized understanding of such care
[2020-09-24] MEDS: KETOROLAC 30 MG/ML VIAL (*BKC) IV PUSH (12:58)
[2020-09-24] MEDS: ONDANSETRON INJ 4 MG/2 ML VIAL IV PUSH (12:58)
[2020-09-24] MEDS: DEXTROSE 5%/LACTATED RINGERS 1,000 ML 125 ML IV CONT (12:58)
[2020-09-24] MEDS: TOPIRAMATE 100 MG TABLET 200 MG PO ×2 (14:52→23:08)
[2020-09-24] MEDS: HYDROcodone/acetaminophen (*CRX) 5-325 MG TABLET 1 TAB PO ×3 (14:53→23:04)
[2020-09-24] MEDS: SIMETHICONE 80 MG TAB.CHEW PO ×2 (14:54→23:08)
[2020-09-24] MEDS: DOCUSATE SODIUM 100 MG CAPSULE PO (17:37)
[2020-09-24] MEDS: IBUPROFEN 600 MG TABLET PO (23:07)
[2020-09-25 04:00] VITALS: BP 125/73; PULSE 66; RESP 18; TEMP 36.8; O2SAT 100
[2020-09-25 05:49] LABS: Basophils Percent Auto 0.2 % (0.2-1.2); Eosinophils Percent Auto 0.3 % (0-4.4); Hematocrit 35.3 % (37.0-47.0); Hemoglobin 11.5 g/dL (12.0-15.0); Immature Granulocyte Absolute 0.05 K/mm3 (0.00-0.031); Immature Granulocyte Percent A 0.4 % (0-0.5); Lymphocytes Absolute Auto 2.31 K/mm3 (0.9-3.2); Lymphocytes Percent Auto 19.4 % (18.3-44.2); Mean Corpuscular HGB Conc 32.6 g/dl (32-36); Mean Corpuscular Hemoglobin 27.3 pg (26-34); Mean Corpuscular Volume 83.8 fl (80-100); Mean Platelet Volume 9.4 fl (7.4-10.4); Monocytes Absolute Auto 0.9 K/mm3 (0.1-0.6); Monocytes Percent Auto 7.5 % (2.6-8.5); Neutrophils Absolute Auto 8.6 K/mm3 (1.3-6.7); Neutrophils Percent Auto 72.2 % (45.5-73.1); Platelet Count Result 272 k/mm3 (150-375); Red Blood Count 4.21 M/mm3 (4.2-5.4); White Blood Count 11.9 K/mm3 (4.5-10.0)
--- NOTE | 2020-09-25 07:28 | P.DS_ITS ---
DS: Admitting Diagnosis Admitting Diagnosis Admitting Diagnosis: abnormal uterine bleeding DS: Summary Hospital Course Hospital Course: Marielos Ly was admitted after robotic assisted total laparoscopic hysterectomy and bilateral salpingrectomy for abnormal uterine bleeding after endometrial ablation. The above procedure was performed with no complications. She is doing well post op. She states her pain is well controlled with PO medications. She reports minimal bleeding. She is ambulating up to the chair. Her wells catheter was removed. She is tolerating PO without N/V. She reports passing flatus. Status at Discharge Overall status at discharge: patient is progressing back to baseline Time Spent with Patient Time attestation: Total time spent providing and/or coordinating discharge services: Time spent: Less than 30 minutes Exam Const: General: comfortable and no acute distress Limitations: no limitations Resp: Effort & Inspection: normal respiratory effort Auscultation: clear to auscultation bilaterally Cardio: Rate: regular rate Rhythm: regular rhythm GI: Inspection: non-distended GI Palp: Yes Soft to palpation, Yes Tenderness to palpation present (GI) (milder tenderness to deep palpation) and No Guarding due to palpation present (GI) Auscultation: normal bowel sounds Other: incisions C/D/I covered with dermabond Urinary Catheter: Urinary Catheter: urine clear Skin: General skin exam: normal color Extrem: General: normal to inspection Psych: Mental Status: mental status grossly normal Affect: normal affect DS: Data Data Completed and Pending Pending studies at discharge: Pending at discharge 09/24/20 10:37 Surgical [PTH] Routine Labs on day of discharge: Labs from last 24 hours 09/25/20 05:23 WBC 11.9 H RBC 4.21 Hgb 11.5 L Hct 35.3 L MCV 83.8 MCH 27.3 MCHC 32.6 RDW 13.0 Plt Count 272 MPV 9.4 Immature Gran % (Auto) 0.4 Neut % (Auto) 72.2 Lymph % (Auto) 19.4 [place] % (Auto) 7.5 Eos % (Auto) 0.3 Baso % (Auto) 0.2 Lymph # (Auto) 2.31 [place] # (Auto) 0.9 H Eos # (Auto) 0.0 Baso # (Auto) 0.0 Abs Immat Gran (auto) 0.05 H Absolute Neuts (auto) 8.6 H Absolute Nucleated RBC 0.0 Nucleated RBC % 0.0 Discharge Plan Discharge Patient Disposition: Home, Self-Care Patient Instructions: How to Stop Smoking (DC), Laparoscopic Hysterectomy (DC), Electronic Cigarettes and Your Health (GEN) Stand Alone Forms: General Discharge Instructions Follow-up/Referrals: Sudhakar Hickman MD [Physician] - Discharge Medications: New hydrocodone-acetaminophen 5-300 mg tablet 1 tablet PO Q6H PRN (Reason: pain) Qty: 30 RF: 0 No Action albuterol sulfate [ProAir HFA] 90 mcg/actuation HFA aerosol inhaler 1 - 2 inh INHALATION Q4H PRN (Reason: Wheezing) RF: 0 topiramate 200 mg tablet 200 mg PO BID 30 Days Qty: 60 RF: 0
[2020-09-25 08:00] VITALS: BP 114/74; PULSE 67; RESP 17; TEMP 36.6; O2SAT 100
[2020-09-25] MEDS: DOCUSATE SODIUM 100 MG CAPSULE PO (08:33)
[2020-09-25] MEDS: IBUPROFEN 600 MG TABLET PO (08:33)
[2020-09-25] MEDS: HYDROcodone/acetaminophen (*CRX) 5-325 MG TABLET 1 TAB PO (08:33)
[2020-09-25] MEDS: TOPIRAMATE 100 MG TABLET 200 MG PO (08:34)
[2020-09-25] MEDS: ENOXAPARIN 40 MG/0.4 ML SYRINGE SUB-Q (08:34)
--- NOTE | 2020-09-25 08:57 | P.PNAN_ITS ---
Anes - Prog Note Post-Op Date/Time: 09/25/20 08:57 Cardiovascular status: normal Respiratory status: normal Airway patency: baseline Mental status: baseline Post-Op hydration status: normal Vital Signs: Last Vital Signs Temp 36.8 C 09/25/20 04:00 Pulse 66 09/25/20 04:00 Resp 18 09/25/20 04:00 BP 125/73 09/25/20 04:00 Pulse Ox 100 09/25/20 04:00 Pain Score (VAS): 4 I/O: Intake & Output 09/24/20 09/25/20 09/25/20 23:59 07:59 15:59 Intake Total 1700 1400 Output Total 1150 1600 Balance 550 -200 Laboratory Tests 09/25/20 05:23 09/25/20 05:23 WBC 11.9 H RBC 4.21 Hgb 11.5 L Hct 35.3 L MCV 83.8 MCH 27.3 MCHC 32.6 RDW 13.0 Plt Count 272 MPV 9.4 Immature Gran % (Auto) 0.4 Neut % (Auto) 72.2 Lymph % (Auto) 19.4 [place] % (Auto) 7.5 Eos % (Auto) 0.3 Baso % (Auto) 0.2 Lymph # (Auto) 2.31 [place] # (Auto) 0.9 H Eos # (Auto) 0.0 Baso # (Auto) 0.0 Abs Immat Gran (auto) 0.05 H Absolute Neuts (auto) 8.6 H Absolute Nucleated RBC 0.0 Nucleated RBC % 0.0 Post-procedural complaints: none Patient Feedback: Patient satisfied with anesthetic care.
--- NOTE | 2020-09-25 11:42 | PC.NURSE ---
Discharged patient to awaiting car. All instructions given and questions answered.
== END 2020-09-25 11:35 | disposition home or self-care (01) ==
LOC: ANHSURGERY 07:39 → ANHOB2 12:40
PROVIDERS: PCP Internal Medicine Infectious Disease; Visit Provider Obstetrics & Gynecology
PROC: (CPT 58552; principal; 2020-09-24 09:45)
DX: N93.9 Abnormal uterine and vaginal bleeding, unspecified (principal); R10.12 Left upper quadrant pain; F41.9 Anxiety disorder, unspecified; J45.909 Unspecified asthma, uncomplicated; F17.290 Nicotine dependence, other tobacco product, uncomplicated; Z79.51 Long term (current) use of inhaled steroids; N80.0 Endometriosis of uterus; N83.8 Other noninflammatory disorders of ovary, fallopian tube and broad ligament
CPT/HCPCS: 58552; S2900; 36415; 85025; 88307; 99199; A9270; J0690; J1100; J1650; J1885; J2250; J2405; J2704; J2710; J3010; J7030; J7120; J7121

== ENCOUNTER 2020-09-26 22:41 | Emergency (ER) | payer OTHER, SELFPAY ==
--- NOTE | ~2020-09-26 | CT_ITS ---
EXAMINATION: CT abdomen pelvis w con DATE: 09/27/2020 00:08 INDICATION: Abdomen pain. Postop. TECHNIQUE: Computed tomography (CT) of the abdomen and pelvis was performed with 100 cc Omnipaque 350 intravenous contrast. The dose-length product was 637.35 mGy-cm. Automated exposure control and iter ative reconstruction technique were employed. COMPARISON: CT dated 09/18/2020. FINDINGS: Lung bases are unremarkable. No significant pleural or pericardial effusion. Heart size nor mal. No significant vascular abnormality. There is small amount of edema and fluid in the pelvis, likely postsurgical from recent laparoscopic hysterectomy. No definite abscess. Normal appendix. Mildly thickened bladder wall which may be due to incomplete distention or less likely cystitis. Nonobstructive bowel gas pattern. The liver, spleen, pancreas, adrenal glands are unremarkable. There are nonobstructing bilateral david l stones. Gallbladder is present. There are locules of gas in the anterior abdominal wall and anterio r abdominal wall musculature, consistent with recent surgery. IMPRESSION: 1. Postsurgical changes described above. No definite abscess. 2: Nonobstructing bilateral nephrolithiasis. Reviewed, dictated and finalized at location A.
--- NOTE | ~2020-09-26 | XR_ITS ---
XR chest 1V portable 09/26/2020 23:15 Indication: Cough and fever for 2 days Procedure: AP portable chest Comparison: Comparison to multiple prior studies sequentially, with oldest reviewed study dated . Findings: Heart size upper normal. No focal air space disease, pulmonary edema, pleural effusion or s uspected pneumothorax. Impression: 1: No acute cardiopulmonary disease. Reviewed, dictated and finalized at location A. Impression: 1: No acute cardiopulmonary disease.
--- NOTE | 2020-09-26 22:20 | ECG_ITS ---
Measurements Intervals [place] Rate: 89 P: 42 [place]: 164 QRS: 22 QRSD: 77 T: 18 QT: 329 QTc: 401 Interpretive Statements SINUS RHYTHM NORMAL ECG Electronically Signed On 09-29-2020 11:51:58 CDT by Atul Erazo D.O.
[2020-09-26 22:49] VITALS: BP 135/88; PULSE 94; RESP 32; TEMP 37; O2SAT 99
[2020-09-26 23:15] LABS: Basophils Percent Auto 0.3 % (0.2-1.2); Eosinophils Absolute Auto 0.1 K/mm3 (0-0.3); Eosinophils Percent Auto 1.2 % (0-4.4); Hematocrit 39.6 % (37.0-47.0); Hemoglobin 13.2 g/dL (12.0-15.0); Immature Granulocyte Absolute 0.06 K/mm3 (0.00-0.031); Immature Granulocyte Percent A 0.5 % (0-0.5); Lymphocytes Absolute Auto 2.34 K/mm3 (0.9-3.2); Lymphocytes Percent Auto 21.4 % (18.3-44.2); Mean Corpuscular HGB Conc 33.3 g/dl (32-36); Mean Corpuscular Hemoglobin 27.7 pg (26-34); Mean Corpuscular Volume 83.2 fl (80-100); Mean Platelet Volume 9.1 fl (7.4-10.4); Monocytes Absolute Auto 0.9 K/mm3 (0.1-0.6); Monocytes Percent Auto 8.1 % (2.6-8.5); Neutrophils Absolute Auto 7.5 K/mm3 (1.3-6.7); Neutrophils Percent Auto 68.5 % (45.5-73.1); Platelet Count Result 286 k/mm3 (150-375); Red Blood Count 4.76 M/mm3 (4.2-5.4); White Blood Count 10.9 K/mm3 (4.5-10.0)
[2020-09-26] MEDS: SODIUM CHLORIDE 0.9% IV 1,000 ML 999 ML IV CONT (23:19)
[2020-09-26 23:27] LABS: Alanine Aminotransferase 14 U/L (4-35); Albumin Level 4.7 g/dL (3.5-5.1); Alkaline Phosphatase 72 U/L (38-126); Anion Gap 10 mmol/L (8-16); Aspartate Amino Transferase 20 U/L (14-36); Bilirubin,Total 0.4 mg/dL (0.2-1.3); Blood Urea Nitrogen 14 mg/dL (7-17); Calcium 9.8 mg/dL (8.4-10.2); Carbon Dioxide 22 mmol/L (22-30); Chloride 106 mmol/L (98-107); Estimated CRCL calculation 80 ml/min; Estimated Glomerular Filt Rate > 60; Glucose 89 mg/dL (65-105); Lipase 33 U/L (23-300); Potassium 3.7 mmol/L (3.4-5.0); Sodium 138 mmol/L (137-145)
--- NOTE | 2020-09-26 23:44 | WPDEDEXPGENP ---
HPI - General Ped General Chief complaint: Fever Stated complaint: fever, post surgery Time Seen by Provider: 09/26/20 22:56 Source: RN notes reviewed History of Present Illness HPI narrative: Patient presents to emergency department from home for fever. Patient she had a partial hysterectomy performed by Dr. Negron on 09/24/2020 she stayed overnight in the hospital was discharged yesterday. Patient states she woke up this morning feeling weak and mildly dizzy she states she is also has some increasing abdominal pain today. Patient states that this evening she felt like she was developing a fever and had a measured temp of 99.2 she denies any coughing, shortness of breath, chest pain, nausea, vomiting, diarrhea or any other symptoms Related Data Allergies Allergy/AdvReac Type Severity Reaction Status Date / Time No Known Allergies Allergy Verified 09/18/20 21:21 Pediatric Review of Systems : Review of Systems: Gen.: Reports subjective fever ENT: Denies congestion Respiratory: Denies shortness of breath or cough CV: Denies chest pain or palpitations GI: Reports increased abdominal pain, denies nausea vomiting diarrhea denies burning, urgency, frequency or hematuria Musculoskeletal: Denies back pain or muscle pain Neuro: Denies numbness, tingling, weakness or focal weakness Skin: Denies rash Except as documented, all other systems reviewed and negative [facility] Past Medical History Medical History Anxiety Depression Surgical History Surgical History (Updated 09/26/20 @ 23:46 by Clinton Lott DO) History of partial hysterectomy Social History Social History (Updated 09/26/20 @ 23:46 by Clinton Lott DO) Smoking status: Never smoker Substance use: never Pediatric Exam Narrative: Physical exam: APPEARANCE: No acute distress, nontoxic, resting in bed EYES: EOMI HEENT: Normocephalic, atraumatic, OMM RESPIRATORY: No respiratory distress Clear to auscultation bilaterally with no rhonchi wheezing or rales. CARDIOVASCULAR: Regular rate and rhythm without murmurs rubs or gallops. ABDOMINAL: Soft, nondistended, diffusely tender palpation no rebound or guarding healing surgical wounds with no signs of infection MUSCULOSKELETAl: Moves all extremities. No clubbing, cyanosis or edema. Bilateral calves soft and nontender NEURO: Awake and alert. Following commands, speech normal, no focal deficits SKIN:: Warm, dry. No rashes lesions or abrasions PSYCHIATRIC: Normal affect/mood, Course Course Emergency Course: Of note the patient's was registered under a different medical record number did review the patient's medical record number from admission with surgery [place] [id number] old records were reviewed Patient will walk to the restroom in the ED with no difficulty Discussed with Dr. Smith for Dr. Darcy Chairez presentation work-up agrees with plan for discharge to follow-up as an outpatient Discussed with patient results of workup and diagnosis. Discussed need for follow-up with primary care, proper use of medication, and reasons to return to the emergency department. Patient understands and agrees to current treatment plan Vital Signs Vital signs: Vital Signs Temperature 98.6 F 09/26/20 22:49 Pulse Rate 94 09/26/20 22:49 Respiratory Rate 32 H 09/26/20 22:49 Blood Pressure 135/88 09/26/20 22:49 Pulse Oximetry 99 09/26/20 22:49 Temperature 98.6 F 09/26/20 22:49 Pulse Rate 94 09/26/20 22:49 Respiratory Rate 32 H 09/26/20 22:49 Blood Pressure 135/88 09/26/20 22:49 Pulse Oximetry 99 09/26/20 22:49 Medical Decision Making Vital Signs Vital Signs: Vital Signs Temperature 98.6 F 09/26/20 22:49 Pulse Rate 94 09/26/20 22:49 Respiratory Rate 32 H 09/26/20 22:49 Blood Pressure 135/88 09/26/20 22:49 Pulse Oximetry 99 09/26/20 22:49 Temperature 98.6 F 09/26/20 22:49 Pulse Rate 94 09/26/20 22:49
[2020-09-27] MEDS: ONDANSETRON INJ 4 MG/2 ML VIAL IV PUSH (00:47)
[2020-09-27] MEDS: MORPHINE SULFATE (*CRX) 2 MG/ML INJ IV PUSH (00:47)
[2020-09-27 00:57] LABS: Add Urine Microscopic? YES; Appearance Urine Cloudy (Clear); Bacteria Urine Trace /hpf; Bilirubin Urine Negative (Negative); Blood Urine 2+ (Negative); Color Urine Yellow (Yellow); Glucose Urine UA Negative (Negative); Ketones Urine Negative (Negative); Leukocyte Esterase Ur Negative LEU/UL (Negative); Mucus Urine Rare /lpf; Nitrate Urine Negative (Negative); Protein Urine Negative (Negative); Specific Grav Ur 1.016 (1.001-1.035); Squamous Epithelial Cell Urine Many /hpf (Few); Urobilinogen Urine Negative mg/dL (<2.0)
== END 2020-09-27 01:43 | disposition home or self-care (01) ==
PROVIDERS: Emergency Provider Emergency Medicine; PCP Internal Medicine Infectious Disease
DX: G89.18 Other acute postprocedural pain (principal); R10.9 Unspecified abdominal pain
CPT/HCPCS: 36415; 71045; 74177; 80053; 81001; 83690; 85025; 87040; 93005; 96361; 96365; 96375; 99284; J0131; J2270; J2405; J7030; Q9967

== ENCOUNTER 2020-10-07 17:24 | Emergency (ER) | payer OTHER, SELFPAY ==
--- NOTE | ~2020-10-07 | CT_ITS ---
EXAMINATION: CT abdomen pelvis w con DATE: 10/07/2020 19:08 INDICATION: Left lower quadrant abdominal pain. Recent hysterectomy. TECHNIQUE: Computed tomography (CT) of the abdomen and pelvis was performed with 100 mL Omnipaque 350 intravenous contrast. Automated exposure control and iterative reconstruction technique were employe d. The dose-length product was 462.38 mGy-cm. COMPARISON: CT abdomen and pelvis 09/26/2020, 09/28/2018 FINDINGS: The visualized portions of the lung bases demonstrate minimal atelectasis. No pleural effus ion. The heart size is normal. No pericardial effusion. The liver and gallbladder are normal. There i s a chronic 9 mm low-attenuation lesion in the spleen, likely benign. The pancreas and adrenal glands are normal. There are 2 stones in right kidney measuring up to 6 mm. There are 4 stones in left kidn ey measuring up to 3 mm. There are no dilated loops of bowel. The appendix is normal. There is a 2.3 cm cyst in left ovary, likely a dominant follicle. There is trace pelvic ascites. There is edema in t he pelvis, consistent with recent hysterectomy. There are no pathologically enlarged lymph nodes. The re is an umbilical hernia containing fat. There is mild lumbar spondylosis. IMPRESSION: 1. Bilateral nonobstructing kidney stones. Reviewed, dictated and finalized at location A.
[2020-10-07 17:42] VITALS: BP 130/85; PULSE 95; RESP 14; TEMP 36.5; O2SAT 99
[2020-10-07 17:57] LABS: Basophils Percent Auto 0.5 % (0.2-1.2); Eosinophils Absolute Auto 0.3 K/mm3 (0-0.3); Eosinophils Percent Auto 3.8 % (0-4.4); Hematocrit 37.8 % (37.0-47.0); Hemoglobin 12.4 g/dL (12.0-15.0); Immature Granulocyte Absolute 0.12 K/mm3 (0.00-0.031); Immature Granulocyte Percent A 1.4 % (0-0.5); Lymphocytes Absolute Auto 2.09 K/mm3 (0.9-3.2); Mean Corpuscular HGB Conc 32.8 g/dl (32-36); Mean Corpuscular Hemoglobin 27.3 pg (26-34); Mean Corpuscular Volume 83.1 fl (80-100); Mean Platelet Volume 8.9 fl (7.4-10.4); Monocytes Absolute Auto 0.6 K/mm3 (0.1-0.6); Monocytes Percent Auto 7.1 % (2.6-8.5); Neutrophils Absolute Auto 5.2 K/mm3 (1.3-6.7); Neutrophils Percent Auto 62.2 % (45.5-73.1); Platelet Count Result 349 k/mm3 (150-375); Red Blood Count 4.55 M/mm3 (4.2-5.4); Red Cell Distribution Width 12.4 % (11.5-14.5); White Blood Count 8.4 K/mm3 (4.5-10.0)
[2020-10-07 18:14] LABS: Alanine Aminotransferase 17 U/L (4-35); Albumin Level 4.6 g/dL (3.5-5.1); Alkaline Phosphatase 75 U/L (38-126); Anion Gap 8 mmol/L (8-16); Aspartate Amino Transferase 24 U/L (14-36); Bilirubin,Total 0.1 mg/dL (0.2-1.3); Blood Urea Nitrogen 12 mg/dL (7-17); Calcium 9.3 mg/dL (8.4-10.2); Carbon Dioxide 28 mmol/L (22-30); Chloride 105 mmol/L (98-107); Estimated CRCL calculation 89 ml/min; Estimated Glomerular Filt Rate > 60; Glucose 96 mg/dL (65-105); Lipase 47 U/L (23-300); Sodium 141 mmol/L (137-145)
[2020-10-07 18:19] LABS: Add Urine Microscopic? YES; Appearance Urine Clear (Clear); Bacteria Urine Trace /hpf; Bilirubin Urine Negative (Negative); Blood Urine 1+ (Negative); Color Urine Yellow (Yellow); Glucose Urine UA Negative (Negative); Ketones Urine Negative (Negative); Leukocyte Esterase Ur Negative LEU/UL (Negative); Mucus Urine Rare /lpf; Nitrate Urine Negative (Negative); Protein Urine Negative (Negative); RBC Urine 0-2 /hpf (0-2); Specific Grav Ur 1.019 (1.001-1.035); Squamous Epithelial Cell Urine Few /hpf (Few); Urobilinogen Urine Negative mg/dL (<2.0); WBC Urine 0-3 /hpf
[2020-10-07 18:21] VITALS: BP 139/89; PULSE 76; TEMP 36.6; O2SAT 100
--- NOTE | 2020-10-07 18:29 | ED.ABDPAIN ---
HPI - Abdominal Pain General Chief Complaint: Abdominal Pain Stated Complaint: LLQ Pain Time Seen by Provider: 10/07/20 18:20 Source: patient Mode of arrival: ambulatory Limitations: no limitations History of Present Illness HPI narrative: This is a 25 year old female that presents to the ER for LLQ abdominal pain since this morning. Associated with nausea and vomiting. The pain is sharp and constant. Reports she recently had a partial hysterectomy and had been doing well post-op until today. Denies fever, diarrhea, or dysuria. Related Data Home Medications Medication Instructions Recorded Confirmed albuterol sulfate [ProAir HFA] 1 - 2 inh INHALATION Q4H PRN 09/15/20 09/15/20 Allergies Allergy/AdvReac Type Severity Reaction Status Date / Time latex Allergy Severe SEVERE Verified 10/07/20 18:33 SWELLING/IRRITATION/RASH pineapple Allergy Severe ANAPHYLATIC Verified 10/07/20 18:33 REACTION Review of Systems Review of Systems: Narrative: CONSTITUTIONAL: Denies fever GASTROINTESTINAL: Reports abdominal pain, nausea, vomiting. Denies diarrhea. GENITOURINARY: Denies dysuria All systems reviewed & are unremarkable except as noted in HPI and below PMFSH Past Medical History Medical History (Updated 10/07/20 @ 20:16 by Kailee Mary PA-C) Anxiety Anxiety Asthma Depression Depression Hx of seizure disorder Surgical History Surgical History (Updated 09/27/20 @ 12:54 by Mandie Vaughn) History of partial hysterectomy No history of previous surgery Family History Family History (System 09/27/20 @ 12:54 by Mandie Vaughn) Grandparent Diabetes mellitus Sibling Asthma Other Breast cancer Social History Social History (System 09/27/20 @ 12:54 by Mandie Vaughn) Years smoked: 12 Smoking status: Never smoker Additional smoking assessment comments: STATES I'M CONSTANTLY VAPING ALL DAY LONG Substance use: never Gender identity (if verbalized by the patient): Female Spiritual care concerns: No Exam Narrative: Exam Narrative: GENERAL: Well-appearing, well-nourished, and in no acute distress. HEAD: Normocephalic, atraumatic. EYES: EOMI. CHEST: Clear to auscultation. No respiratory distress. No wheezes rales or rhonchi HEART: Regular rate and rhythm. No murmur heard. Normal peripheral pulses. ABDOMEN: Soft, nondistended, normal active bowel sounds. Tender to palpation in the left lower quadrant, without guarding EXTREMITIES: Normal range of motion. No edema. SKIN: Warm, dry, no rash. NEURO: No focal deficits. Alert and oriented x3. PSYCH: Normal mood and affect Course Consultations Consultation #1: Spoke with Dr. Smith about patient and work-up. Patient instructed to follow-up in clinic at her scheduled appointment. Date: 10/07/20 Time: 20:15 Vital Signs Vital signs: Vital Signs Temperature 97.7 F 10/07/20 17:42 Pulse Rate 95 10/07/20 17:42 Respiratory Rate 14 10/07/20 17:42 Blood Pressure 130/85 10/07/20 17:42 Pulse Oximetry 99 10/07/20 17:42 Temperature 97.9 F 10/07/20 18:21 Pulse Rate 97 10/07/20 18:56 Respiratory Rate 15 10/07/20 18:56 Blood Pressure 138/85 10/07/20 18:56 Pulse Oximetry 97 10/07/20 18:56 MDM - Abdominal Pain MDM Narrative Medical decision making narrative: Patient presents the emergency department for left-sided abdominal/pelvic pain since this morning. She is afebrile and nontoxic-appearing. CBC is without leukocytosis. Metabolic panel and lipase without concerning findings. UA without evidence of infection. Bedside test is negative. CT scan abdomen and pelvis shows bilateral nonobstructing kidney stones. No acute findings. Patient recently did have a hysterectomy. Patient hydrated and given pain medication with relief. Spoke with Dr. Smith about patient and work-up. Patient instructed to follow-up in clinic at her scheduled appointment. She is stable and felt appropria
[2020-10-07] MEDS: ONDANSETRON INJ 4 MG/2 ML VIAL IV PUSH (18:55)
[2020-10-07] MEDS: MORPHINE SULFATE (*CRX) 4 MG/ML INJ IV PUSH (18:55)
[2020-10-07] MEDS: SODIUM CHLORIDE 0.9% IV 1,000 ML 999 ML IV CONT (18:55)
--- NOTE | 2020-10-07 18:55 | PC.NURSE ---
Pt to CT scan via stretcher at this time.
[2020-10-07 18:56] VITALS: BP 138/85; PULSE 97; RESP 15; O2SAT 97
--- NOTE | 2020-10-07 21:03 | PC.NURSE ---
Pt presents to ED with complaints of left side abdominal pain. Pt denies pain and discomfort with urination. Pt rates pain 2/10 at this time. Denies nvd, fever and chills, chest pain and sob. Pt alert and oriented x4. Girlfriend at bedside. Pt in no obvious distress and vitals are stable.
[2020-10-07 21:04] VITALS: BP 119/73; PULSE 73; RESP 20; TEMP 36.8; O2SAT 100
== END 2020-10-07 21:28 | disposition home or self-care (01) ==
PROVIDERS: Emergency Medicine; Emergency Provider Emergency Medicine; PCP Internal Medicine Infectious Disease
DX: G89.18 Other acute postprocedural pain (principal); R10.32 Left lower quadrant pain; J45.909 Unspecified asthma, uncomplicated; F17.290 Nicotine dependence, other tobacco product, uncomplicated
CPT/HCPCS: 36415; 74177; 80053; 81001; 81025; 83690; 85025; 96361; 96374; 96375; 99284; J2270; J2405; J7030; Q9967

== ENCOUNTER 2020-12-05 18:48 | Emergency (ER) | payer OTHER, SELFPAY ==
--- NOTE | ~2020-12-05 | CT_ITS ---
EXAMINATION: CT abdomen pelvis wo con DATE: 12/05/2020 23:31 INDICATION: Left lower quadrant abdominal pain. TECHNIQUE: Computed tomography (CT) of the abdomen and pelvis was performed without intravenous contr ast. Automated exposure control and iterative reconstruction technique were employed. The dose-length product was 441.22 mGy-cm. COMPARISON: CT abdomen and pelvis 10/07/2020 FINDINGS: The visualized portions of the lung bases are clear without pneumonia or pleural effusion. The heart size is normal. No pericardial effusion. The liver, gallbladder, spleen, pancreas, and adre nal glands are normal. There are 3 stones in right kidney measuring up to 5 mm. There are 3 stones in left kidney measuring up to 2 mm. There are no dilated loops of bowel. The appendix is normal. There are no pathologically enlarged lymph nodes. There is trace pelvic ascites. The bones are unremarkabl e. IMPRESSION: 1. Bilateral nonobstructing kidney stones. Reviewed, dictated and finalized at location A.
[2020-12-05 18:56] VITALS: BP 116/78; PULSE 97; RESP 18; TEMP 36.4; O2SAT 100
[2020-12-05 19:07] LABS: Basophils Percent Auto 0.3 % (0.2-1.2); Eosinophils Absolute Auto 0.2 K/mm3 (0-0.3); Eosinophils Percent Auto 2.4 % (0-4.4); Hematocrit 39.8 % (37.0-47.0); Immature Granulocyte Absolute 0.04 K/mm3 (0.00-0.031); Immature Granulocyte Percent A 0.6 % (0-0.5); Lymphocytes Percent Auto 26.8 % (18.3-44.2); Mean Corpuscular HGB Conc 32.7 g/dl (32-36); Mean Corpuscular Hemoglobin 27.8 pg (26-34); Mean Corpuscular Volume 85.2 fl (80-100); Mean Platelet Volume 9.2 fl (7.4-10.4); Monocytes Absolute Auto 0.6 K/mm3 (0.1-0.6); Monocytes Percent Auto 8.2 % (2.6-8.5); Neutrophils Absolute Auto 4.1 K/mm3 (1.3-6.7); Neutrophils Percent Auto 61.7 % (45.5-73.1); Platelet Count Result 284 k/mm3 (150-375); Red Blood Count 4.67 M/mm3 (4.2-5.4); Red Cell Distribution Width 12.9 % (11.5-14.5); White Blood Count 6.7 K/mm3 (4.5-10.0)
[2020-12-05 19:18] LABS: Anion Gap 9 mmol/L (8-16); Blood Urea Nitrogen 14 mg/dL (7-17); Calcium 9.7 mg/dL (8.4-10.2); Carbon Dioxide 26 mmol/L (22-30); Chloride 106 mmol/L (98-107); Estimated CRCL calculation 77 ml/min; Estimated Glomerular Filt Rate > 60; Glucose 80 mg/dL (65-105); Potassium 4.1 mmol/L (3.4-5.0); Sodium 141 mmol/L (137-145)
[2020-12-05] MEDS: SODIUM CHLORIDE 0.9% IV 1,000 ML 999 ML IV CONT (21:29)
[2020-12-05] MEDS: ONDANSETRON INJ 4 MG/2 ML VIAL IV PUSH (21:30)
[2020-12-05 21:33] VITALS: BP 118/77; PULSE 71; O2SAT 100
[2020-12-05] MEDS: MORPHINE SULFATE (*CRX) 4 MG/ML INJ IV PUSH (21:33)
--- NOTE | 2020-12-05 21:41 | PC.NURSE ---
pt unable to provide urine sample at this time.
[2020-12-05 23:28] LABS: Add Urine Microscopic? YES; Appearance Urine Cloudy (Clear); Bacteria Urine Trace /hpf; Bilirubin Urine Negative (Negative); Blood Urine 2+ (Negative); Color Urine Yellow (Yellow); Glucose Urine UA Negative (Negative); Ketones Urine Negative (Negative); Leukocyte Esterase Ur Trace LEU/UL (Negative); Mucus Urine Heavy /lpf; Nitrate Urine Negative (Negative); Protein Urine 1+ mg/dL (Negative); RBC Urine >75 /hpf (0-2); Specific Grav Ur 1.021 (1.001-1.035); Squamous Epithelial Cell Urine Many /hpf (Few); Urobilinogen Urine Negative mg/dL (<2.0); WBC Urine 16-20 /hpf
--- NOTE | 2020-12-06 00:33 | ED.GENADULT ---
HPI - General Adult General Chief complaint: Abdominal Pain Stated complaint: abdominal pain radiate to back Time Seen by Provider: 12/05/20 20:44 History of Present Illness HPI narrative: Patient is a 25-year-old female who presents ER with lower abdominal pain. Sudden onset earlier today and radiates into her left back. No urinary frequency or urgency. Denies dysuria. No diarrhea or constipation. Has not found any alleviating factors. Feels similar to previous kidney stone. Related Data Home Medications Medication Instructions Recorded Confirmed albuterol sulfate [ProAir HFA] 1 - 2 inh INHALATION Q4H PRN 09/15/20 09/15/20 Allergies Allergy/AdvReac Type Severity Reaction Status Date / Time latex Allergy Severe SEVERE Verified 12/05/20 20:43 SWELLING/IRRITATION/RASH pineapple Allergy Severe ANAPHYLATIC Verified 12/05/20 20:43 REACTION Review of Systems Review of Systems: All systems reviewed & are unremarkable except as noted in HPI and below Constitutional: Constitutional: Denies chills and Denies fever(s) Gastrointestinal: Gastrointestinal: Reports abdominal pain, Denies constipation, Denies diarrhea, Denies nausea and Denies vomiting Genitourinary: Genitourinary: Denies hematuria, Denies nocturia and Denies dysuria [facility] Past Medical History Medical History (Updated 12/06/20 @ 00:37 by Jose G Davidson MD) Anxiety Anxiety Asthma Depression Depression Hx of seizure disorder Surgical History Surgical History (Updated 09/27/20 @ 12:54 by Mandie Vaughn) History of partial hysterectomy No history of previous surgery Family History Family History (System 09/27/20 @ 12:54 by Mandie Vaughn) Grandparent Diabetes mellitus Sibling Asthma Other Breast cancer Social History Social History (System 09/27/20 @ 12:54 by Mandie Vaughn) Years smoked: 12 Smoking status: Never smoker Additional smoking assessment comments: STATES I'M CONSTANTLY VAPING ALL DAY LONG Substance use: never Gender identity (if verbalized by the patient): Female Spiritual care concerns: No Exam Narrative: Exam Narrative: GENERAL: Well-appearing, well-nourished, and in no acute distress. HEAD: Normocephalic, atraumatic. CHEST: Clear to auscultation. No respiratory distress. HEART: Regular rate and rhythm. Normal peripheral pulses. ABDOMEN: Soft, mild left lower quadrant tenderness without guarding, nondistended. No CVA tenderness EXTREMITIES: Normal range of motion. No edema. SKIN: Warm, dry, old sunburn to face/shoulders/torso and arms that is peeling without active blisters. NEURO:Alert and oriented x3. PSYCH: Normal mood and affect. Course Course Emergency Course: Patient resting comfortably. Pain-free. Patient may have passed a kidney stone but there is no evidence at this time. Will place on Bactrim for possible UTI as well. Vital Signs Vital signs: Vital Signs Temperature 97.6 F 12/05/20 18:56 Pulse Rate 97 12/05/20 18:56 Respiratory Rate 18 12/05/20 18:56 Blood Pressure 116/78 12/05/20 18:56 Pulse Oximetry 100 12/05/20 18:56 Temperature 97.6 F 12/05/20 18:56 Pulse Rate 71 12/05/20 21:33 Respiratory Rate 18 12/05/20 18:56 Blood Pressure 118/77 12/05/20 21:33 Pulse Oximetry 100 12/05/20 21:33 Medical Decision Making Vital Signs Vital Signs: Vital Signs Temperature 97.6 F 12/05/20 18:56 Pulse Rate 97 12/05/20 18:56 Respiratory Rate 18 12/05/20 18:56 Blood Pressure 116/78 12/05/20 18:56 Pulse Oximetry 100 12/05/20 18:56 Temperature 97.6 F 12/05/20 18:56 Pulse Rate 71 12/05/20 21:33 Respiratory Rate 18 12/05/20 18:56 Blood Pressure 118/77 12/05/20 21:33 Pulse Oximetry 100 12/05/20 21:33 Lab Data Result diagrams: 12/05/20 18:58 12/05/20 18:58 Labs: Lab Results 12/05/20 12/05/20 12/05/20 Range/Units 18:58 18:58 23:10 WBC 6.7 (4.5
[2020-12-06 00:50] VITALS: BP 116/67; PULSE 76; RESP 16; O2SAT 99
== END 2020-12-06 00:48 | disposition home or self-care (01) ==
PROVIDERS: Emergency Medicine; Emergency Provider Emergency Medicine; PCP Internal Medicine Infectious Disease
DX: N39.0 Urinary tract infection, site not specified (principal); J45.909 Unspecified asthma, uncomplicated; F17.290 Nicotine dependence, other tobacco product, uncomplicated
CPT/HCPCS: 11720; 36415; 74176; 80048; 81001; 81025; 85025; 87086; 87088; 96361; 96374; 96375; 99284; J2270; J2405; J7030

== ENCOUNTER 2020-12-26 00:04 | Emergency (ER) | payer OTHER, SELFPAY ==
[2020-12-26 00:18] VITALS: BP 132/92; PULSE 79; RESP 18; TEMP 36.3; O2SAT 100
[2020-12-26] MEDS: traMADol HCL (*CRX) 50 MG TABLET PO (01:07)
[2020-12-26] MEDS: AMOXICILLIN/CLAVULANATE K 875-125 MG TAB 1 TABLET PO (01:07)
--- NOTE | 2020-12-26 01:21 | ED.DENTAL ---
HPI - Dental/Oral General Chief complaint: Dental/Oral Stated complaint: Left sided dental pain Time Seen by Provider: 12/26/20 00:18 History of Present Illness HPI Narrative: Patient is a 25-year-old female has dental pain at tooth #17. Ongoing for last 2 days. She has had a cracked tooth for much longer. No facial swelling. No difficulty swallowing. Has discomfort with drinking and eating. No fevers or chills or sweats. Radiates to her ear. Related Data Home Medications Medication Instructions Recorded Confirmed albuterol sulfate [ProAir HFA] 1 - 2 inh INHALATION Q4H PRN 09/15/20 09/15/20 Allergies Allergy/AdvReac Type Severity Reaction Status Date / Time latex Allergy Severe SEVERE Verified 12/05/20 20:43 SWELLING/IRRITATION/RASH pineapple Allergy Severe ANAPHYLATIC Verified 12/05/20 20:43 REACTION Review of Systems Constitutional: Constitutional: Denies chills and Denies fever(s) ENT: Denies dysphagia, Denies nasal congestion and Denies sore throat Comments: Dental pain PMFSH Past Medical History Medical History (Updated 12/26/20 @ 01:23 by Jose G Davidson MD) Anxiety Anxiety Asthma Depression Depression Hx of seizure disorder Surgical History Surgical History (Updated 09/27/20 @ 12:54 by Mnadie Vaughn) History of partial hysterectomy No history of previous surgery Family History Family History (System 09/27/20 @ 12:54 by Mandie Vaughn) Grandparent Diabetes mellitus Sibling Asthma Other Breast cancer Social History Social History (System 09/27/20 @ 12:54 by Mandie Vaughn) Years smoked: 12 Smoking status: Never smoker Additional smoking assessment comments: STATES I'M CONSTANTLY VAPING ALL DAY LONG Substance use: never Gender identity (if verbalized by the patient): Female Spiritual care concerns: No Exam Narrative: Exam Narrative: GENERAL: Well-appearing, well-nourished, and in no acute distress. HEAD: Normocephalic, atraumatic. ENT: Mucous membranes moist. Fractured tooth #17. No fluctuant abscess. No facial swelling. NEURO: Alert and oriented x3. PSYCH: Normal mood and affect. Course Course Emergency Course: Recommend dental wax. Will give antibiotics and tramadol. Discharge home. Vital Signs Vital signs: Vital Signs Temperature 97.4 F L 12/26/20 00:18 Pulse Rate 79 12/26/20 00:18 Respiratory Rate 18 12/26/20 00:18 Blood Pressure 132/92 H 12/26/20 00:18 Pulse Oximetry 100 12/26/20 00:18 Temperature 97.4 F L 12/26/20 00:18 Pulse Rate 79 12/26/20 00:18 Respiratory Rate 18 12/26/20 00:18 Blood Pressure 132/92 H 12/26/20 00:18 Pulse Oximetry 100 12/26/20 00:18 Discharge Plan Discharge Clinical Impression: Pain, dental Patient Disposition: Home, Self-Care Condition: Stable Instructions: Antibiotic Form, Toothache (ED) Additional Instructions: Return the ER if you cannot breathe, you cannot swallow, you have facial swelling, you have fever over 100.4 ?F. Contact a dentist or attempt to get care at the dental school in [place]. Prescriptions: New amoxicillin-pot clavulanate [Augmentin] 875-125 mg tablet 1 tablet PO Q12H Qty: 20 RF: 0 tramadol 50 mg tablet 50 mg PO Q6H PRN (Reason: pain) Qty: 14 RF: 0 No Action albuterol sulfate [ProAir HFA] 90 mcg/actuation HFA aerosol inhaler 1 - 2 inh INHALATION Q4H PRN (Reason: Wheezing) RF: 0 sulfamethoxazole-trimethoprim [Bactrim DS] 800-160 mg tablet 1 tablet PO Q12H Qty: 10 RF: 0 Follow-up/Referrals: Dental Referral Line [Outside] Anthony,Reginaldo Marie [Primary Care Provider] - Stand Alone Forms: Work/School Release IP
[2020-12-26 01:34] VITALS: BP 134/87; PULSE 84; RESP 16; TEMP 36.6; O2SAT 100
== END 2020-12-26 01:35 | disposition home or self-care (01) ==
PROVIDERS: Emergency Provider Emergency Medicine; PCP Internal Medicine Infectious Disease
DX: K08.89 Other specified disorders of teeth and supporting structures (principal); J45.909 Unspecified asthma, uncomplicated; F17.290 Nicotine dependence, other tobacco product, uncomplicated; K03.81 Cracked tooth
CPT/HCPCS: 99283; A9270

== ENCOUNTER 2021-02-05 22:18 | Emergency (ER) | payer OTHER, SELFPAY ==
--- NOTE | ~2021-02-05 | XR_ITS ---
EXAMINATION: XR hand LT min 3V DATE: 02/05/2021 23:05 INDICATION: Left hand pain post blunt trauma TECHNIQUE: Posteroanterior, oblique and lateral views of the left hand were obtained. COMPARISON: None. FINDINGS: Alignment is normal. No fracture. Joint spaces are normal. Soft tissues are unremarkable. IMPRESSION: 1. Negative left hand radiographs. Reviewed, dictated and finalized at location A.
[2021-02-05 22:26] VITALS: BP 145/88; PULSE 77; RESP 17; TEMP 36.9; O2SAT 100
--- NOTE | 2021-02-05 23:31 | ED.UPPEXIN ---
HPI - Extremity Injury (Upper) General Chief Complaint: Extremity Injury, Upper Stated Complaint: Left hand injury Time Seen by Provider: 02/05/21 23:31 History of Present Illness HPI narrative: 25 yo female presents to the ED for a hand injury. She dropped a heavy cooler onto her left hand. She has pain with movement, especially in third and fourth fingers. Fingers feel numb. No wound. Related Data Home Medications Medication Instructions Recorded Confirmed albuterol sulfate [ProAir HFA] 1 - 2 inh INHALATION Q4H PRN 09/15/20 09/15/20 Allergies Allergy/AdvReac Type Severity Reaction Status Date / Time latex Allergy Severe SEVERE Verified 02/05/21 22:25 SWELLING/IRRITATION/RASH pineapple Allergy Severe ANAPHYLATIC Verified 02/05/21 22:25 REACTION Review of Systems Cardiovascular: Cardiovascular: Denies chest pain Respiratory: Respiratory: Denies dyspnea Gastrointestinal: Gastrointestinal: Denies nausea Neurologic: Reports numbness and Denies weakness PMFSH Past Medical History Medical History Anxiety Anxiety Asthma Depression Depression Hx of seizure disorder Surgical History Surgical History History of partial hysterectomy No history of previous surgery Family History Family History Grandparent Diabetes mellitus Sibling Asthma Other Breast cancer Social History Social History Years smoked: 12 Smoking status: Never smoker Additional smoking assessment comments: STATES I'M CONSTANTLY VAPING ALL DAY LONG Alcohol use details: 1 DRINK EVERY 2 MONTHS Substance use: never Gender identity (if verbalized by the patient): Female Spiritual care concerns: No Exam Const: General: healthy appearing, no acute distress and alert Orientation/consciousness: patient oriented x3 HENMT: Head: normal to inspection Resp: Effort & Inspection: normal respiratory effort Auscultation: clear to auscultation bilaterally Cardio: Rate: regular rate Rhythm: regular rhythm Other: 2+ left radial pulse Skin: General skin exam: normal color Wounds: no wounds Neuro: General: patient oriented x3 and moves all extremities Speech: No normal speech Extrem: Other: minimal swelling of left hand. strength grossly normal. sensation grossly intact. Psych: Affect: Anxious affect present Course Vital Signs Vital signs: Vital Signs Temperature 36.9 C 02/05/21 22:26 Pulse Rate 77 02/05/21 22:26 Respiratory Rate 17 02/05/21 22:26 Blood Pressure 145/88 H 02/05/21 22:26 Pulse Oximetry 100 02/05/21 22:26 Temperature 36.9 C 02/05/21 22:26 Pulse Rate 77 02/05/21 22:26 Respiratory Rate 17 02/05/21 22:26 Blood Pressure 145/88 H 02/05/21 22:26 Pulse Oximetry 100 02/05/21 22:26 MDM - Extremity Injury (Upper) Imaging Data Radiologist's impression: ITS Impressions Hand X-Ray 02/06/21 09:02 IMPRESSION: 1. Negative left hand radiographs. Discharge Plan Discharge Clinical Impression: Contusion of hand, left Patient Disposition: Home, Self-Care Condition: Stable Instructions: Contusion in Adults (ED) Prescriptions: No Action albuterol sulfate [ProAir HFA] 90 mcg/actuation HFA aerosol inhaler 1 - 2 inh INHALATION Q4H PRN (Reason: Wheezing) RF: 0 amoxicillin-pot clavulanate [Augmentin] 875-125 mg tablet 1 tablet PO Q12H Qty: 20 RF: 0 tramadol 50 mg tablet 50 mg PO Q6H PRN (Reason: pain) Qty: 14 RF: 0 sulfamethoxazole-trimethoprim [Bactrim DS] 800-160 mg tablet 1 tablet PO Q12H Qty: 10 RF: 0 Follow-up/Referrals: Anthony,Reginaldo Marie [Primary Care Provider] -
== END 2021-02-06 00:17 | disposition home or self-care (01) ==
LOC: ANHED 23:52
PROVIDERS: Emergency Provider Emergency Medicine; PCP Internal Medicine Infectious Disease
DX: S60.222A Contusion of left hand, initial encounter (principal); J45.909 Unspecified asthma, uncomplicated; F17.290 Nicotine dependence, other tobacco product, uncomplicated; W20.8XXA Other cause of strike by thrown, projected or falling object, initial encounter
CPT/HCPCS: 73130; 99283

== ENCOUNTER 2021-02-15 19:53 | Emergency (ER) | payer OTHER, SELFPAY ==
[2021-02-15 19:56] VITALS: BP 141/72; PULSE 102; RESP 20; TEMP 37.7; O2SAT 99
[2021-02-15 20:07] LABS: Basophils Percent Auto 0.4 % (0.2-1.2); Eosinophils Absolute Auto 0.1 K/mm3 (0-0.3); Eosinophils Percent Auto 1.5 % (0-4.4); Hematocrit 37.6 % (37.0-47.0); Hemoglobin 12.4 g/dL (12.0-15.0); Immature Granulocyte Absolute 0.03 K/mm3 (0.00-0.031); Immature Granulocyte Percent A 0.4 % (0-0.5); Lymphocytes Absolute Auto 1.48 K/mm3 (0.9-3.2); Mean Corpuscular Hemoglobin 27.5 pg (26-34); Mean Corpuscular Volume 83.4 fl (80-100); Mean Platelet Volume 9.2 fl (7.4-10.4); Monocytes Absolute Auto 1.1 K/mm3 (0.1-0.6); Monocytes Percent Auto 14.5 % (2.6-8.5); Neutrophils Percent Auto 64.2 % (45.5-73.1); Platelet Count Result 211 k/mm3 (150-375); Red Blood Count 4.51 M/mm3 (4.2-5.4); White Blood Count 7.8 K/mm3 (4.5-10.0)
--- NOTE | 2021-02-15 20:11 | PC.NURSE ---
pt left at this time due to not being able to have her visitor w/ her. pt ambulated out of facility w/ steady gait. instructed to return with worsening symptoms/concerns. yells fuck you at this nurse while leaving facility.
[2021-02-15 20:17] LABS: Anion Gap 11 mmol/L (8-16); Blood Urea Nitrogen 13 mg/dL (7-17); Calcium 9.3 mg/dL (8.4-10.2); Carbon Dioxide 24 mmol/L (22-30); Chloride 101 mmol/L (98-107); Estimated Glomerular Filt Rate > 60; Glucose 82 mg/dL (65-110); Potassium 4.1 mmol/L (3.4-5.0); Sodium 136 mmol/L (137-145)
--- NOTE | 2021-02-16 01:00 | ECG_ITS ---
Measurements Intervals H[place]ense Rate: 75 P: 13 ND: 165 QRS: 27 QRSD: 90 T: 0 QT: 360 QTc: 402 Interpretive Statements SINUS RHYTHM BORDERLINE T WAVE ABNORMALITY- INFERIOR LEADS BASELINE ARTIFACT- III, AVF, V5-V6 BORDERLINE ECG Electronically Signed On 02-16-2021 7:42:55 CDT by Atul Erazo D.O.
== END 2021-02-15 20:11 | disposition left against medical advice (07) ==
PROVIDERS: Emergency Provider General Practice; PCP Internal Medicine Infectious Disease
DX: Z53.21 Procedure and treatment not carried out due to patient leaving prior to being seen by health care provider (principal); R05 Cough
CPT/HCPCS: 36415; 80048; 85025; 93005; 99199

== ENCOUNTER 2021-04-24 13:26 | Emergency (ER) | payer OTHER, SELFPAY ==
--- NOTE | ~2021-04-24 | XR_ITS ---
XR knee LT min 4V 04/24/2021 13:38 INDICATION: Left knee pain PROCEDURE: 4 views left knee COMPARISON: No prior studies for comparison. FINDINGS: Fracture, dislocation or subluxation is not identified. The soft tissues appear within norm al limits. No foreign bodies are identified. IMPRESSION: 1: NO ACUTE BONE OR JOINT ABNORMALITY IDENTIFIED. Reviewed, dictated and finalized at location A.
[2021-04-24 13:49] VITALS: BP 117/71; PULSE 84; RESP 18; TEMP 36.4; O2SAT 100
--- NOTE | 2021-04-24 16:52 | ED.LOWEXIN ---
HPI - Extremity Injury (Lower) General Chief Complaint: Extremity Injury, Lower <Yasmin Segura PA-C - Last Filed: 04/24/21 17:01> Stated Complaint: Left Leg/Knee Pain <Yasmin Segura PA-C - Last Filed: 04/24/21 17:01> Time Seen by Provider: 04/24/21 15:39 <Yasmin Segura PA-C - Last Filed: 04/24/21 17:01> Source: patient <Yasmin Segura PA-C - Last Filed: 04/24/21 17:01> Mode of arrival: ambulatory <HARI Gayle Last Filed: 04/24/21 17:01> Limitations: no limitations <Yasmin Segura PA-C - Last Filed: 04/24/21 17:01> History of Present Illness HPI Narrative: Patient presents with chief complaint of pain and bruising to the left knee that has continued since Sunday. Patient states she cannot recall a direct mechanism of injury. 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 Patient reports the pain is greater when she flexes or weightbears on the knee. She reports pain circumferentially. Patient has not taken anything at home to alleviate her symptoms. She has been trying to decrease activity throughout the weekend. <Yasmin Segura PA-C - Last Filed: 04/24/21 17:01> Related Data Home Medications: Home Medications Medication Instructions Recorded Confirmed albuterol sulfate [ProAir HFA] 1 - 2 inh INHALATION Q4H PRN 09/15/20 09/15/20 <Yasmin Segura PA-C - Last Filed: 04/24/21 17:01> Allergies/Adverse Reactions: Allergies Allergy/AdvReac Type Severity Reaction Status Date / Time latex Allergy Severe SEVERE Verified 04/24/21 15:28 SWELLING/IRRITATION/RASH pineapple Allergy Severe ANAPHYLATIC Verified 04/24/21 15:28 REACTION <HARI Gayle Last Filed: 04/24/21 17:01> Review of Systems Review of Systems: CONSTITUTIONAL: Denies fever, chills, or sweats. EYES: Denies visual changes, redness, or discharge. ENT: Denies rhinorrhea, congestion, sore throat, or otalgia. CARDIOVASCULAR: Denies chest pain, palpitations, or edema. RESPIRATORY: Denies cough or dyspnea. GASTROINTESTINAL: Denies abdominal pain, nausea, vomiting, or diarrhea. GENITOURINARY: Denies dysuria or hematuria. SKIN: Denies rash or itching. MUSCULOSKELETAL: Reports knee pain Denies back pain, joint pain, or myalgia. NEUROLOGIC: Denies headache, numbness, dizziness, or weakness. PSYCHIATRIC: Denies anxiety or depression. <Yasmin Segura PA-C - Last Filed: 04/24/21 17:01> PMFSH Past Medical History Medical History: Medical History (Updated 04/24/21 @ 17:01 by Yasmin Segura PA-C) Anxiety Anxiety Asthma Depression Depression Hx of seizure disorder <Yasmin Segura PA-C - Last Filed: 04/24/21 17:01> Surgical History Surgical History: Surgical History History of partial hysterectomy No history of previous surgery <Yasmin Segura PA-C - Last Filed: 04/24/21 17:01> Family History Family History: Family History Grandparent Diabetes mellitus Sibling Asthma Other Breast cancer <Yasmin Segura PA-C - Last Filed: 04/24/21 17:01> Social History Social History: Social History Years smoked: 12 Smoking status: Never smoker Additional smoking assessment comments: STATES I'M CONSTANTLY VAPING ALL DAY LONG Alcohol use details: 1 DRINK EVERY 2 MONTHS Substance use: never Gender identity (if verbalized by the patient): Female Spiritual care concerns: No <Yasmin Segura PA-C - Last Filed: 04/24/21 17:01> Exam Narrative: GENERAL: Well-appearing, well-nourished, and in no acute distress. HEAD: Normocephalic, atraumatic. EYES: PERRLA and EOMI. CHEST: Clear to auscultation. No respiratory distress. No wheezes rales or rhonchi HEART: Regular rate and rhythm. No murmur heard. Normal peripheral pulses.. EX
== END 2021-04-24 17:17 | disposition home or self-care (01) ==
PROVIDERS: Emergency Provider Emergency Medicine; PCP Internal Medicine Infectious Disease
DX: S83.92XA Sprain of unspecified site of left knee, initial encounter (principal); X58.XXXA Exposure to other specified factors, initial encounter
CPT/HCPCS: 73564; 99283

== ENCOUNTER 2021-08-29 20:55 | Emergency (ER) | payer OTHER, SELFPAY ==
[2021-08-29 21:04] VITALS: BP 132/88; PULSE 74; RESP 20; TEMP 36.7; O2SAT 100
--- NOTE | 2021-08-29 21:57 | PC.NURSE ---
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
== END 2021-08-29 22:06 | disposition left against medical advice (07) ==
PROVIDERS: PCP Internal Medicine Infectious Disease
DX: R11.2 Nausea with vomiting, unspecified (principal)
CPT/HCPCS: 99199

== ENCOUNTER 2021-10-10 08:51 | Outpatient (CLI) | payer OTHER, SELFPAY | END 2021-10-10 08:52 | disposition home or self-care (01) | LOC: ANHSURGERY 08:55 | PROVIDERS: PCP Internal Medicine Infectious Disease; Visit Provider Obstetrics & Gynecology | DX: R10.2 Pelvic and perineal pain (principal) | CPT/HCPCS: 36415; 86850; 86900; 86901 ==

== ENCOUNTER → 2021-10-11 00:25 | Outpatient (CLI) | payer OTHER, SELFPAY ==
[2021-10-11 11:18] LABS: SARS-CoV-2 RNA PCR Negative
== END ==
PROVIDERS: PCP Internal Medicine Infectious Disease; Visit Provider Obstetrics & Gynecology
DX: Z01.812 Encounter for preprocedural laboratory examination (principal); Z20.822 Contact with and (suspected) exposure to COVID-19
CPT/HCPCS: C9803; U0003; U0005

== ENCOUNTER 2021-10-14 01:22 | Day surgery (SDC) | payer OTHER, SELFPAY ==
[2021-10-07 14:20] VITALS: BMI 31.5
--- NOTE | 2021-10-07 14:22 | PC.NURSE ---
Addendum entered by Ariela Kilgore RN 10/07/21 14:36: MAY USE INHALER IF NEEDED Original Note: Report to the Outpatient Waiting Room, entrance under the green pavilion located off [facility], at time _0730 on date 10/14/21__. OR Time: ___0930 - You and your visitor will be asked a series of questions to screen for COVID 19 for your protection. - A mask is required within the hospital. Preoperative COVID Testing Requirements: No COVID Test needed if: (proof is required; if not received patient will have Rapid Test prior to entry) - Patient has received COVID Vaccine at least 14 days prior to procedure date or - Patient has positive COVID test result within last 90 days of surgery date. COVID Test needed if above criteria is not met If not COVID vaccinated a COVID test must be conducted within 72 hours of surgery and patient is asked to isolate self from time of testing until procedure. You will go to the [facility] for your COVID testing. The [facility] site is located at the corner of [address] from [facility]. You will only be called if COVID results are positive and your surgeon may reschedule your elective surgery date. Patients may have clear liquids (water, carbonated beverages, clear teas, apple juice) until 3 hours prior to surgery with a maximum of 20 ounces. - No food from midnight until time of surgery - Infants may have breast milk until 4 hours before surgery, infant formula 6 hours prior to surgery. - Children will be allowed to drink immediately following surgery. If applicable, please bring a bottle or sippy cup to assist with drinking. Juice, water, soda, and popsicles are readily available. For infants on formula, please bring formula the day of surgery. Pacifiers are allowed. Take the following medications with a SIP of water the morning of surgery: Medications to discontinue per physician Date to take last dose Please no make-up, nail yakut, hairspray, perfume, deodorant, or body powder the day of surgery. No jewelry (including any body piercings) or valuables the day of surgery, leave them at home. Please take a shower or bath the night before, or the morning of, surgery with an antibacterial soap. Wear comfortable, loose fitting clothing. Children are encouraged to wear pajamas. - Jewelry must be removed prior to entering the operating room. Rings and piercings that are not removed may be cut off. - The hospital will not accept responsibility for valuables. - Please leave all valuables, including medications, at home the day of surgery. If you are going home after surgery, a licensed stage driver must drive you home. - NO public transportation without another adult. - We recommend that an adult stay with you for 24 hours following discharge. - We also recommend that you do not drive, make important decision, drink alcoholic beverages, or take any drugs that were not prescribed by your health care provider for at least 24 hours after your discharge time. For Pediatric surgeries, we recommend two adults accompany the child home (only one inside the building at this time). One visitor will be allowed to accompany the patient into the hospital. Patients visitor will be instructed to remain with patient at all times or leave the building. We will allow the visitor to come back to the postoperative area when patient is ready. Follow any additional instructions given to you from your surgeon. Telephone instructions given to __PATIENT and asked if any additional questions and then verbalized understanding. Patient advised to call surgeon office or pre surgery nurse liaison [phone] if any additional questions.
--- NOTE | 2021-10-13 07:48 | PM.IMHP ---
H&P: HPI History of Present Illness Date/Time: 10/13/21 07:48 26-year-old status post hysterectomy admitted for laparoscopy secondary to severe pelvic pain. The ultrasound showed absent uterus but a fair amount of free fluid in the loculated fluid seen. Risks and benefits of this procedure reviewed including but not exclusive of , aspiration pneumonia, bleeding, transfusion, perforation injury to bowel, bladder, ureters, or other internal organs with need for open laparotomy. She received the [employer] handout entitled laparoscopy. She had all questions answered. She asked to proceed Chief Complaint: Pelvic pain Review of Systems Review of Systems: All systems reviewed & are unremarkable except as noted in HPI and below PMFSH Past Medical History Medical History Anxiety Anxiety Asthma Depression Depression Hx of seizure disorder Surgical History Surgical History History of partial hysterectomy No history of previous surgery Family History Family History Grandparent Diabetes mellitus Sibling Asthma Other Breast cancer Social History Social History Years smoked: 12 Smoking status: Never smoker Tobacco type: e-cigarettes/vaping Additional smoking assessment comments: 2 YEARS Alcohol intake: current Drinks per week: 3 Alcohol use details: 1 DRINK EVERY 2 MONTHS Substance use: never Gender identity (if verbalized by the patient): Female Spiritual care concerns: No Meds Home Medications and Allergies Home Medications Medication Instructions Recorded Confirmed Type albuterol sulfate [ProAir HFA] 1 - 2 inh INHALATION Q4H PRN 09/15/20 10/07/21 History Allergies Allergy/AdvReac Type Severity Reaction Status Date / Time latex Allergy Severe SEVERE Verified 10/07/21 14:13 SWELLING/IRRITATION/RASH pineapple Allergy Severe ANAPHYLATIC Verified 10/07/21 14:13 REACTION Exam Const: General: no acute distress Eyes: General: appearance normal, both eyes and all related structures Neck: Neck: supple and no JVD Thyroid: thyroid normal Resp: Effort & Inspection: normal respiratory effort Auscultation: clear to auscultation bilaterally Cardio: Rate: regular rate Rhythm: regular rhythm GI: Inspection: non-distended GI Palp: Yes Soft to palpation, No Tenderness to palpation present (GI) and No Guarding due to palpation present (GI) Auscultation: normal bowel sounds : External Female Exam: normal external appearance Speculum Exam - Vagina: normal appearance of the vagina Speculum Exam - Cervix: Cervix absent Bimanual exam- vagina & uterus: uterus absent Bimanual Exam- Adnexa, other: tender Skin: General skin exam: no rashes or lesions noted Extrem: General: normal to inspection and no edema Psych: Mental Status: mental status grossly normal Affect: normal affect Assessment and Plan Additional Plan Impression: Pelvic pain Plan: Laparoscopy
[2021-10-14] VITALS (9 sets, daily range): BP systolic 99–129; BP diastolic 63–86; PULSE 51–106; RESP 12–18; TEMP 36.2–36.4; O2SAT 95–100
--- NOTE | 2021-10-14 07:20 | WPDHPUPDATE1 ---
History and Physical Update Update Date/Time: 10/14/21 07:20 History and Physical has been reviewed, including an updated exam of the patient. There are NO changes in the patient's condition. Risks, benefits, and alternatives have been discussed and questions answered. Patient agrees to proceed with procedure.
[2021-10-14] MEDS: ACETAMINOPHEN 500 MG TABLET 1000 MG PO (07:50)
[2021-10-14] MEDS: LACTATED RINGERS 1,000 ML 30 ML IV CONT (08:13)
[2021-10-14] MEDS: KETOROLAC 15 MG/ML VIAL (*BKC) IV PUSH (08:14)
--- NOTE | 2021-10-14 08:48 | P.PNAN_ITS ---
Anes - Initial Pre Proc Eval Procedure: Operation Date: 10/14/21 09:30 Proposed Procedures p Diagnostic Laparoscopy - Sudhakar Chairez MD Date/Time: 10/14/21 08:48 Surgeon: Sudhakar Chairez MD Pre Op Diagnosis: pelvic pain Patient Data Age: 26 Gender: F Height: 1.65 m Weight: 85.2 kg Last Vital Signs Temp 36.2 C L 10/14/21 07:57 Pulse 80 10/14/21 07:57 Resp 16 10/14/21 07:57 BP 129/85 10/14/21 07:57 Pulse Ox 100 10/14/21 07:57 Allergies Allergy/AdvReac Type Severity Reaction Status Date / Time latex Allergy Severe SEVERE Verified 10/14/21 07:43 SWELLING/IRRITATION/RASH pineapple Allergy Severe ANAPHYLATIC Verified 10/14/21 07:43 REACTION Home Medications Medication Instructions Recorded Confirmed Type albuterol sulfate [ProAir HFA] 1 - 2 inh INHALATION Q4H PRN 09/15/20 10/07/21 History hydrocodone-acetaminophen 1 tablet PO Q4H PRN #30 tablet 10/14/21 Rx Patient hx anesthesia problems: none Family hx anesthesia problems: other (slow to awaken) Results Review: All pre-operative results and documents have been reviewed as part of the pre-operative evaluation. [facility] Past Medical History Medical History Anxiety Anxiety Asthma Depression Depression Hx of seizure disorder Surgical History Surgical History History of partial hysterectomy No history of previous surgery Family History Family History Grandparent Diabetes mellitus Sibling Asthma Other Breast cancer Social History Social History Years smoked: 12 Smoking status: Never smoker Additional smoking assessment comments: STATES I'M CONSTANTLY VAPING ALL DAY LONG Alcohol intake: current Drinks per week: 3 Alcohol use details: 1 DRINK EVERY 2 MONTHS Substance use: never Living arrangements: with family Gender identity (if verbalized by the patient): Female Spiritual care concerns: No Anes - Eval Final PreProcedure Day of Procedure 10/14/21 08:48 Patient weight: obese Heart: regular rate and rhythm Lungs: clear to auscultation Airway: Mallampati scale class II Neurological: alert and oriented Last oral intake: >/= 8 hours ASA classification: III Emergent: no Anesthetic plan: proceed Anesthesia type and monitoring: general ETT and standard monitoring Results Review: All pre-operative results and documents have been reviewed as part of the pre-operative evaluation. Informed Consent: The patient's anesthetic plan and its attendant risks and benefits were discussed with the patient/family/POA. Questions were solicited and answers provided to the satisfaction of the patient/family/POA.
--- NOTE | 2021-10-14 10:19 | W.PM.PROC2 ---
Procedure Note - Detailed Date of Procedure 10/14/21 Pre-op Diagnosis pelvic pain Post-op Diagnosis Other (l ov cyst/adhesions) Procedure Performed Laparoscopy/destruction left ovarian cyst/lysis of adhesions Surgeon Sudhakar Chairez MD Anesthesia General Indications Absent uterus and tubes. Normal-appearing ovaries bilaterally with adhesions bilaterally Findings Absent uterus and tubes. Normal-appearing ovaries bilaterally with adhesions throughout Description of Procedure Patient was prepped draped in sterile fashion placed in dorsal lithotomy position. Under excellent general trach anesthesia placed in posterior fornix vagina. Sponge stick was placed and bladder draining clear urine. The weighted speculum was removed the gloves were changed. A supraumbilical incision made the Veress needle passed in the abdomen. Abdomen filled with CO2 gas 15mmmmofmercury. The 5mm trocar advanced under direct visualization. Patient placed in Trendelenburg and a suprapubic incision made. The 5mm trocar advanced under direct visualization assuring. The cul-de-sac was noted to be completely obliterated with adhesions using sharp dissection using Endo Irene these were sharply dissected occasional cautery. [id number] of serosanguineous fluid was seen in the cul-de-sac and this was suction and removed with then irrigation undertaken. A left ovarian cyst was seen and this was opened in linear fashion and drained clear urine irrigation undertaken clear. No other abnormalities were seen. The lower site removed. The gas removed from the abdomen. The incisions closed with 4-0 Monocryl and glue. Patient went to recovery in satisfactory condition. All sponge, needle, instrument counts were correct. There were no immediate complications Estimated Blood Loss 5 Drains No Packing No Pathology None sent Complications No immediate complications Condition Stable Disposition PACU
[2021-10-14] MEDS: fentaNYL CITRATE INJ (*CRX) 100 MCG/2 ML VIAL 25 MCG IV PUSH ×4 (10:33→11:01)
== END 2021-10-14 12:40 | disposition home or self-care (01) ==
PROVIDERS: PCP Internal Medicine Infectious Disease; Visit Provider Obstetrics & Gynecology
PROC: (CPT 49320; principal; 2021-10-14 09:30)
DX: R10.2 Pelvic and perineal pain (principal); N83.202 Unspecified ovarian cyst, left side; N73.6 Female pelvic peritoneal adhesions (postinfective); J45.909 Unspecified asthma, uncomplicated; Z79.51 Long term (current) use of inhaled steroids; F17.290 Nicotine dependence, other tobacco product, uncomplicated; E66.9 Obesity, unspecified; Z68.31 Body mass index [BMI] 31.0-31.9, adult
CPT/HCPCS: 58662; A9270; J0330; J1100; J1885; J2250; J2405; J2704; J2710; J3010; J7120

== ENCOUNTER 2021-11-30 10:33 | Emergency (ER) | payer OTHER, SELFPAY ==
[2021-11-30 10:44] VITALS: BP 127/83; PULSE 83; RESP 16; TEMP 37.1; O2SAT 99
--- NOTE | 2021-11-30 11:23 | ED.HA ---
HPI - Headache General Chief Complaint: Headache Stated Complaint: herrera Time Seen by Provider: 11/30/21 11:24 Source: patient Mode of arrival: ambulatory Limitations: no limitations History of Present Illness HPI Narrative: 26-year-old female presents with complaint of migraine for 1 week. Reports history of having similar migraine pain for this duration of time. Used to take Topamax for her migraines but is no longer taking that medication. Does not take any emergency medication for migraines such as Imitrex. States that Excedrin has always worked for her. Has taken Excedrin, Tylenol, ibuprofen, aspirin over the last week with no improvement. States that she has increased her caffeine with no improvement to migraine. Also reports that she is having photophobia, nausea. States that her entire head hurts which is normal for her migraines. She is ambulatory with a steady gait. She is answering all questions appropriately. States that she has not been able to go to the work for the last 3 days due to her pain. All systems reviewed and negative except as noted above. She Related Data Home Medications Medication Instructions Recorded Confirmed No Home Medications 11/30/21 11/30/21 Allergies Allergy/AdvReac Type Severity Reaction Status Date / Time latex Allergy Severe SEVERE Verified 10/14/21 07:43 SWELLING/IRRITATION/RASH pineapple Allergy Severe ANAPHYLATIC Verified 10/14/21 07:43 REACTION Review of Systems Review of Systems: CONSTITUTIONAL: Denies fever, chills, or sweats. EYES: Denies visual changes, redness, or discharge. ENT: Denies rhinorrhea, congestion, sore throat, or otalgia. CARDIOVASCULAR: Denies chest pain, palpitations, or edema. RESPIRATORY: Denies cough or dyspnea. GASTROINTESTINAL: Denies abdominal pain, nausea, vomiting, or diarrhea. GENITOURINARY: Denies dysuria or hematuria. SKIN: Denies rash or itching. MUSCULOSKELETAL: Denies back pain, joint pain, or myalgia. NEUROLOGIC: Reports headache. Denies numbness, or weakness. PSYCHIATRIC: Denies anxiety or depression. All other systems reviewed are negative, except as documented in HPI. [facility] Past Medical History Medical History (Updated 11/30/21 @ 11:48 by Azucena Roberts NP) Anxiety Anxiety Asthma Depression Depression Hx of seizure disorder Surgical History Surgical History History of partial hysterectomy No history of previous surgery Family History Family History Grandparent Diabetes mellitus Sibling Asthma Other Breast cancer Social History Social History Years smoked: 12 Smoking status: Never smoker Additional smoking assessment comments: STATES I'M CONSTANTLY VAPING ALL DAY LONG Alcohol intake: current Drinks per week: 3 Alcohol use details: 1 DRINK EVERY 2 MONTHS Substance use: never Gender identity (if verbalized by the patient): Female Spiritual care concerns: No Comments At time of signature, agree with nursing past medical, surgical, social and family history. There is no relevant family history pertinent to the presenting complaint. Exam Narrative: GENERAL: This is a well-nourished, well-developed patient, in no apparent distress. HEAD: normocephalic, atraumatic. EYES: PERRL. Sclera clear/white. Vision is grossly intact. EARS: External ears normal NOSE: External nose normal NECK: Neck supple, non-tender without lymphadenopathy, masses or thyromegaly. CARDIOVASCULAR: Regular rate and rhythm without murmurs, gallops, or rubs. RESPIRATORY: Clear to auscultation. Breath sounds equal bilaterally. No wheezes, rales, or rhonchi. SKIN: warm, Dry, intact with no suspicious lesions or rash, good texture and turgor. NEURO: awake, alert, and oriented to person, place and time. There were no obvious focal devin
[2021-11-30] MEDS: ONDANSETRON HCL ODT 4 MG TABLET PO (11:36)
[2021-11-30] MEDS: KETOROLAC (*BKC) 60 MG/2 ML VIAL IM (11:37)
[2021-11-30] MEDS: diphenhydrAMINE HCl CAP 25 MG CAPSULE 50 MG PO (11:37)
== END 2021-11-30 12:08 | disposition home or self-care (01) ==
PROVIDERS: Emergency Provider Nurse Practitioner Family; PCP Internal Medicine Infectious Disease
DX: G43.909 Migraine, unspecified, not intractable, without status migrainosus (principal); F17.290 Nicotine dependence, other tobacco product, uncomplicated; J45.909 Unspecified asthma, uncomplicated; Z90.711 Acquired absence of uterus with remaining cervical stump
CPT/HCPCS: 96372; 99213; A9270; G0463; J1885

== ENCOUNTER 2022-02-13 16:50 | Emergency (ER) | payer OTHER, SELFPAY ==
[2022-02-13 17:08] VITALS: BP 154/98; PULSE 110; RESP 19; TEMP 36.6; O2SAT 100
--- NOTE | 2022-02-13 19:38 | PC.NURSE ---
Pt ambulated without difficulty to intake desk to inquire re: wait time. Stated she had to leave bc her biological photographer called her. Speech clear. No s/s of respiratory difficulty. Ambulated out of ED.
== END 2022-02-13 19:49 | disposition left against medical advice (07) ==
LOC: ANHED 19:41
DX: R05.9 Cough, unspecified (principal)
CPT/HCPCS: 99199

== ENCOUNTER 2022-03-12 10:27 | Emergency (ER) | payer OTHER, SELFPAY ==
--- NOTE | ~2022-03-12 | XR_ITS ---
EXAMINATION: XR shoulder RT min 2V DATE: 03/12/2022 11:16 INDICATION: Right shoulder injury and pain. TECHNIQUE: 4 views of right shoulder were obtained. COMPARISON: None. FINDINGS: Bone alignment is normal. No fracture. Joint spaces are well maintained. IMPRESSION: 1. Normal right shoulder. Reviewed, dictated and finalized at location A. IMPRESSION: 1. Normal right shoulder.
--- NOTE | ~2022-03-12 | CT_ITS ---
EXAMINATION: CT cervical spine wo con DATE: 03/12/2022 11:28 INDICATION: Neck injury. TECHNIQUE: Computed tomography (CT) of the cervical spine was performed without intravenous contrast. Automated exposure control and iterative reconstruction technique were employed. The dose-length pro duct was 368.47 mGy-cm. COMPARISON: None FINDINGS: There is 6 degrees dextrocurvature of cervical spine. There is kyphosis of cervical spine. Vertebral body heights and intervertebral disc heights are normal. At C7-T1, there is mild bilateral facet joint osteoarthritis. No neural foraminal stenosis or central canal stenosis. IMPRESSION: 1. No fracture. Reviewed, dictated and finalized at location A. IMPRESSION: 1. No fracture.
--- NOTE | ~2022-03-12 | CT_ITS ---
EXAMINATION: CT brain wo con DATE: 03/12/2022 11:28 INDICATION: Head injury. TECHNIQUE: Computed tomography (CT) of the head was performed without intravenous contrast. The mA wa s adjusted according to patient size. Iterative reconstruction technique was employed. The dose-lengt h product was 605.33 mGy-cm. COMPARISON: Head CT 03/07/2020 FINDINGS: There is no intracranial hemorrhage, acute infarction, or abnormal intracranial mass lesion . The ventricles are normal in size. There is mild mucosal thickening in the paranasal sinuses. The m astoid air cells are normal. The orbits are normal. IMPRESSION: 1. Normal brain. Reviewed, dictated and finalized at location A. IMPRESSION: 1. Normal brain.
--- NOTE | ~2022-03-12 | XR_ITS ---
EXAMINATION: XR chest 2V DATE: 03/12/2022 11:16 INDICATION: Right chest pain. Dizziness. TECHNIQUE: Frontal and lateral views of the chest were obtained. COMPARISON: Chest single view 09/26/2020 FINDINGS: The chest demonstrates clear lungs without pneumonia, pleural effusion, or pneumothorax. Th e heart size is normal. IMPRESSION: 1. No acute cardiopulmonary disease. Reviewed, dictated and finalized at location A.
[2022-03-12 10:29] VITALS: BP 145/88; PULSE 92; RESP 14; TEMP 36.6; O2SAT 100
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
[2022-03-12] MEDS: HYDROcodone/acetaminophen (*CRX) 5-325 MG TABLET 1 TAB PO (10:47)
== END 2022-03-12 11:53 | disposition home or self-care (01) ==
PROVIDERS: Emergency Provider Emergency Medicine; PCP Physician Assistant
DX: S16.1XXA Strain of muscle, fascia and tendon at neck level, initial encounter (principal); M25.511 Pain in right shoulder; F41.9 Anxiety disorder, unspecified; J45.909 Unspecified asthma, uncomplicated; F32.9 Major depressive disorder, single episode, unspecified; Y04.0XXA Assault by unarmed brawl or fight, initial encounter
CPT/HCPCS: 70450; 71046; 72125; 73030; 99284; A4565; A9270

== ENCOUNTER 2022-07-31 15:00 | Emergency (ER) | payer OTHER, SELFPAY ==
[2022-07-31 15:17] VITALS: BP 138/97; PULSE 96; RESP 16; TEMP 36.7; O2SAT 100
--- NOTE | 2022-07-31 15:26 | ED.URI ---
HPI - URI/Sore Throat General Chief Complaint: Upper Respiratory Infection Stated Complaint: shortness of breath, cough Time Seen by Provider: 07/31/22 15:20 Source: patient, RN notes reviewed and old records reviewed Mode of arrival: ambulatory Limitations: no limitations History of Present Illness HPI Narrative: 27 year old female who presents to express care with complaints of shortness of breath and feeling of burning in chest. Patient reports that she was helping a friend clean out his house and thinks that exposure to some of the cleaning products have exacerbated her asthma. Patient reports that she has misplaced her inhaler of albuterol. Patient has no noted tachypnea or any wheezing noted on auscultation at this time. Patient reports that she has tightness in the chest with her breathing. MD elicited complaint: cough and other (report dyspnea and tightness to chest with inhalation.) Pertinent past history: asthma Onset (ago): day(s) (2) Treatments prior to arrival: none Related Data Home Medications Medication Instructions Recorded Confirmed pantoprazole 40 mg tablet,delayed 40 mg PO QAM 03/21/22 03/22/22 release trazodone 50 mg tablet 50 mg PO QHS PRN 03/21/22 03/22/22 Allergies Allergy/AdvReac Type Severity Reaction Status Date / Time latex Allergy Severe SEVERE Verified 07/31/22 15:26 SWELLING/IRRITATION/RASH pineapple Allergy Severe ANAPHYLATIC Verified 07/31/22 15:26 REACTION Review of Systems Review of Systems: CONSTITUTIONAL: Denies malaise, chills, sweats, or fever. EYES: Denies visual changes, redness, or discharge. ENT: Reports no rhinorrhea, congestion, sinus pain,no otalgia no sore throat. CARDIOVASCULAR: Denies chest pain, palpitations, or edema. RESPIRATORY: Reports cough.?Reports tightness to her chest with inhalation and some episodes of wheezing and dyspnea with activity GASTROINTESTINAL: Denies abdominal pain, nausea, vomiting, diarrhea SKIN: Denies rash or itching. MUSCULOSKELETAL: Denies myalgia. NEUROLOGIC: Denies headache. All systems reviewed & are unremarkable except as noted in HPI and below PMFSH Past Medical History Medical History (Updated 08/02/22 @ 14:45 by Gia Manuel NP) Anxiety Asthma Depression Hx of seizure disorder Surgical History Surgical History History of partial hysterectomy Family History Family History Grandparent Diabetes mellitus Cerebrovascular accident Thyroid disorder Sibling Asthma Mother Alcoholism Depression Other Thyroid disorder Other Breast cancer Social History Social History (Updated 08/02/22 @ 14:45 by Gia Manuel NP) Years smoked: 12 Smoking status: Current every day smoker Tobacco type: e-cigarettes/vaping Additional smoking assessment comments: STATES I'M CONSTANTLY VAPING ALL DAY LONG Alcohol intake: current Drinks per week: 3 Alcohol use details: 1 DRINK EVERY 2 MONTHS Substance use: never Living arrangements: alone Occupation/Education: unemployed Gender identity (if verbalized by the patient): Female Spiritual care concerns: No Comments At time of signature, agree with nursing past medical, surgical, social and family history. There is no relevant family history pertinent to the presenting complaint Exam Narrative: GENERAL: Well-appearing, well-nourished, and in no acute distress. HEAD: Normocephalic EYES: PERRLA, conjunctivae clear ENT: Nares clear, turbinates edematous and erythematous, clear discharge. Mucous membranes moist. TM pearly suárez with dull light reflex bilaterally; no tragal tenderness. Oropharynx erythematous without lesions. Tonsils not enlarged and without exudate, no drooling, no hoarseness, no trismus, uvula midline. NECK: Supple. No lymphadenopathy CHEST: Clear to auscultation, breath sounds equal. No wh
[2022-07-31 15:31] VITALS: BP 138/97; PULSE 96; RESP 16; TEMP 36.7; O2SAT 100
== END 2022-07-31 15:44 | disposition home or self-care (01) ==
PROVIDERS: Emergency Provider Registered Nurse
DX: J45.901 Unspecified asthma with (acute) exacerbation (principal); F32.A Depression, unspecified; Z90.711 Acquired absence of uterus with remaining cervical stump
CPT/HCPCS: 99213; G0463

== ENCOUNTER 2022-09-06 12:52 | Emergency (ER) | payer OTHER, SELFPAY ==
[2022-09-06 13:14] VITALS: BP 152/91; PULSE 95; RESP 20; TEMP 36; O2SAT 98
[2022-09-06 13:54] LABS: Basophils Percent Auto 0.6 % (0.2-1.2); Eosinophils Absolute Auto 0.1 K/mm3 (0-0.3); Eosinophils Percent Auto 0.9 % (0-4.4); Hematocrit 41.4 % (37.0-47.0); Hemoglobin 13.8 g/dL (12.0-15.0); Immature Granulocyte Absolute 0.05 K/mm3 (0.00-0.031); Immature Granulocyte Percent A 0.9 % (0-0.5); Lymphocytes Absolute Auto 1.32 K/mm3 (0.9-3.2); Mean Corpuscular HGB Conc 33.3 g/dl (32-36); Mean Corpuscular Hemoglobin 28.9 pg (26-34); Mean Corpuscular Volume 86.8 fl (80-100); Mean Platelet Volume 9.1 fl (7.4-10.4); Monocytes Absolute Auto 0.4 K/mm3 (0.1-0.6); Monocytes Percent Auto 7.8 % (2.6-8.5); Neutrophils Absolute Auto 3.4 K/mm3 (1.3-6.7); Neutrophils Percent Auto 64.8 % (45.5-73.1); Platelet Count Result 274 k/mm3 (150-375); Red Blood Count 4.77 M/mm3 (4.2-5.4); Red Cell Distribution Width 12.7 % (11.5-14.5); White Blood Count 5.3 K/mm3 (4.5-10.0)
[2022-09-06 14:06] LABS: Alanine Aminotransferase 30 U/L (6-35); Albumin Level 4.7 g/dL (3.5-5.1); Alkaline Phosphatase 79 U/L (38-126); Anion Gap 6 mmol/L (8-16); Aspartate Amino Transferase 26 U/L (14-36); Bilirubin,Total 0.6 mg/dL (0.2-1.3); Blood Urea Nitrogen 12 mg/dL (7-17); Calcium 8.9 mg/dL (8.4-10.2); Carbon Dioxide 27 mmol/L (22-30); Chloride 104 mmol/L (98-107); Estimated Glomerular Filt Rate > 60; Glucose 86 mg/dL (65-110); Lipase 52 U/L (23-300); Potassium 4.3 mmol/L (3.4-5.0); Sodium 137 mmol/L (137-145)
[2022-09-06 14:23] LABS: Beta HCG Quantitative < 2.39 mIU/ML
--- NOTE | 2022-09-06 15:11 | PC.NURSE ---
patient decided to leave this facility. Patient stated that she did not want to wait anymore. Patient ambulated out of the ED with a steady gait and no difficulty. Patient walked out at 1512
== END 2022-09-06 16:06 | disposition left against medical advice (07) ==
PROVIDERS: Emergency Provider Emergency Medicine; PCP Physician Assistant
DX: R10.9 Unspecified abdominal pain (principal); N93.9 Abnormal uterine and vaginal bleeding, unspecified; Z53.21 Procedure and treatment not carried out due to patient leaving prior to being seen by health care provider
CPT/HCPCS: 36415; 80053; 83690; 84702; 85025; 85461; 86850; 86900; 86901; 99199

== ENCOUNTER 2023-06-10 21:08 | Emergency (ER) | payer OTHER, SELFPAY ==
--- NOTE | ~2023-06-10 | CT_ITS ---
CT of the Abdomen and Pelvis: Indication: Abdominal pain Technique: 2.5 mm axial scans were obtained through the abdomen and pelvis following intravenous adm inistration of 100 cc of Omnipaque 350. Dose reduction technique was used on this scan by utilizing a utomated exposure control and iterative reconstruction technique. The dose-length product (DLP) was 9 75.85 mGy-cm. COMPARISON: 12/05/2020 Findings: Scans through the lung bases are unremarkable. The liver, spleen, pancreas, gallbladder, and adrenal glands are within normal limits. Small bilatera l nonobstructing renal stones are present measuring up to 3 mm in maximum diameter. No evidence of ao rtic aneurysm. No lymphadenopathy. No bowel obstruction or bowel wall thickening. There is no evidence to suggest acute appendicitis. Images through the pelvis were performed. Urinary bladder unremarkable. 2.3 cm left adnexal cyst pres ent. No ascites. Impression: Small bilateral nonobstructing renal stones. 2.3 cm left ovarian cyst. Reviewed, dictated and finalized at location . Impression: Small bilateral nonobstructing renal stones. 2.3 cm left ovarian cyst.
[2023-06-10 21:26] VITALS: BP 148/91; PULSE 103; RESP 14; TEMP 36.3; O2SAT 100
[2023-06-10 21:35] LABS: Basophils Absolute Auto 0.1 K/mm3 (0.0-0.1); Basophils Percent Auto 0.5 % (0.2-1.2); Eosinophils Absolute Auto 0.2 K/mm3 (0-0.3); Eosinophils Percent Auto 1.5 % (0-4.4); Hematocrit 38.5 % (37.0-47.0); Hemoglobin 12.8 g/dL (12.0-15.0); Immature Granulocyte Absolute 0.09 K/mm3 (0.00-0.031); Immature Granulocyte Percent A 0.9 % (0-0.5); Lymphocytes Absolute Auto 2.41 K/mm3 (0.9-3.2); Lymphocytes Percent Auto 24.9 % (18.3-44.2); Mean Corpuscular HGB Conc 33.2 g/dl (32-36); Mean Corpuscular Hemoglobin 27.9 pg (26-34); Mean Corpuscular Volume 83.9 fl (80-100); Mean Platelet Volume 8.9 fl (7.4-10.4); Monocytes Absolute Auto 0.8 K/mm3 (0.1-0.6); Monocytes Percent Auto 7.8 % (2.6-8.5); Neutrophils Absolute Auto 6.2 K/mm3 (1.3-6.7); Neutrophils Percent Auto 64.4 % (45.5-73.1); Platelet Count Result 272 k/mm3 (150-375); Red Blood Count 4.59 M/mm3 (4.2-5.4); Red Cell Distribution Width 12.3 % (11.5-14.5); White Blood Count 9.7 K/mm3 (4.5-10.0)
[2023-06-10 21:47] LABS: Alanine Aminotransferase 38 U/L (6-35); Albumin Level 4.5 g/dL (3.5-5.1); Alkaline Phosphatase 80 U/L (38-126); Anion Gap 9 mmol/L (8-16); Aspartate Amino Transferase 31 U/L (14-36); Bilirubin,Total 0.5 mg/dL (0.2-1.3); Blood Urea Nitrogen 10 mg/dL (7-17); Carbon Dioxide 27 mmol/L (22-30); Chloride 105 mmol/L (98-107); Estimated CRCL calculation 115 ml/min; Estimated Glomerular Filt Rate > 60; Glucose 86 mg/dL (65-110); Lipase 51 U/L (23-300); Potassium 3.7 mmol/L (3.4-5.0); Sodium 141 mmol/L (137-145)
[2023-06-11 01:45] VITALS: BP 137/83; PULSE 80; RESP 18; O2SAT 99
--- NOTE | 2023-06-11 02:09 | ED.GENADULT ---
HPI - General Adult General Chief complaint: Abdominal Pain Stated complaint: RUQ pain, n/v Time Seen by Provider: 06/11/23 02:01 Source: patient Mode of arrival: ambulatory Limitations: no limitations History of Present Illness HPI narrative: This is a 28-year-old female who presents to the ED with chief complaint of right upper quadrant pain beginning 1 hour prior to arrival this evening. Reports that this was onset yesterday after having [place] food for dinner. Reports that she had episodes of nausea vomiting last night and has continued to eat reports the pain is right upper quadrant and radiates somewhat around to the back and right shoulder. She states she has had gallbladder problems in the past but never had a removed. Denies fevers, chills, diarrhea, urinary problems. Past abdominal surgical history of partial hysterectomy. Related Data Home Medications Medication Instructions Recorded Confirmed pantoprazole 40 mg tablet,delayed 40 mg PO QAM 03/21/22 03/22/22 release trazodone 50 mg tablet 50 mg PO QHS PRN 03/21/22 03/22/22 Allergies Allergy/AdvReac Type Severity Reaction Status Date / Time latex Allergy Severe SEVERE Verified 06/11/23 01:48 SWELLING/IRRITATION/RASH pineapple Allergy Severe ANAPHYLATIC Verified 06/11/23 01:48 REACTION Review of Systems Review of Systems: All systems as dictated in [facility] Past Medical History Medical History (Updated 06/11/23 @ 03:20 by Ashish Tabor PA-C) Anxiety Asthma Depression Hx of seizure disorder Surgical History Surgical History History of partial hysterectomy Family History Family History Grandparent Diabetes mellitus Cerebrovascular accident Thyroid disorder Sibling Asthma Mother Alcoholism Depression Other Thyroid disorder Other Breast cancer Social History Social History (Updated 08/02/22 @ 14:45 by Gia Manuel NP) Years smoked: 12 Smoking status: Current every day smoker Tobacco type: e-cigarettes/vaping Additional smoking assessment comments: STATES I'M CONSTANTLY VAPING ALL DAY LONG Alcohol intake: current Drinks per week: 3 Alcohol use details: 1 DRINK EVERY 2 MONTHS Substance use: never Living arrangements: alone Occupation/Education: unemployed Gender identity (if verbalized by the patient): Female Spiritual care concerns: No Exam Narrative: GENERAL: Well-appearing, well-nourished, and in no acute distress. playing on phone on my arrival. HEAD: Normocephalic, atraumatic. EYES: PERRLA and EOMI. ENT: Nares clear, no rhinorrhea or epistaxis. Mucous membranes moist. Oropharynx without tonsillar hypertrophy exudate or other lesions. NECK: Supple. No adenopathy or masses. CHEST: No respiratory distress. Clear to auscultation. No wheezes rales or rhonchi HEART: Regular rate and rhythm. No murmur heard. Normal peripheral pulses. ABDOMEN: Right upper quadrant tenderness present. Right flank tenderness as well. Soft, nondistended, normal active bowel sounds. Negative peritoneal signs. MSK: Normal range of motion. No edema. SKIN: Warm, dry, no rash. NEURO: Alert and oriented x3. No focal deficits. PSYCH: Normal mood and affect. Course Vital Signs Vital signs: Vital Signs Temperature 36.3 C L 06/10/23 21:26 Pulse Rate 103 H 06/10/23 21:26 Respiratory Rate 14 06/10/23 21:26 Blood Pressure 148/91 H 06/10/23 21:26 Pulse Oximetry 100 06/10/23 21:26 Oxygen Delivery Room Air 06/10/23 21:26 Temperature 36.3 C L 06/10/23 21:26 Pulse Rate 80 06/11/23 01:45 Respiratory Rate 18 06/11/23 01:45 Blood Pressure 137/83 06/11/23 01:45 Pulse Oximetry 99 06/11/23 01:45 Oxygen Delivery Room Air 06/10/23 21:26 Medical Decision Making [facility] Narrative Medical decision making narrative: This is a 28-y
[2023-06-11] MEDS: ONDANSETRON INJ 4 MG/2 ML VIAL IV PUSH (02:39)
[2023-06-11] MEDS: SODIUM CHLORIDE 0.9% IV 1,000 ML 999 ML IV CONT (02:39)
[2023-06-11] MEDS: MORPHINE SULFATE (*CRX) 4 MG/ML INJ IV PUSH (02:39)
[2023-06-11 03:25] LABS: Appearance Urine Turbid (Clear); Bacteria Urine 4+ /hpf; Bilirubin Urine Negative (Negative); Color Urine Yellow (Yellow); Glucose Urine UA Negative (Negative); Ketones Urine Negative (Negative); Leukocyte Esterase Ur 2+ LEU/UL (Negative); Need Manual Microscopic Reviewed; Nitrate Urine Negative (Negative); Protein Urine Trace mg/dL (Negative); Specific Grav Ur 1.026 (1.001-1.035); Squamous Epithelial Cell Urine Many /hpf (Few); Urobilinogen Urine 0.2 mg/dL (<2.0); WBC Urine >100 /hpf; pH Urine 5.5 (5.0-9.0)
[2023-06-11 03:36] LABS: Add Urine Microscopic? YES
== END 2023-06-11 05:17 | disposition home or self-care (01) ==
PROVIDERS: Emergency Provider Emergency Medicine
DX: R10.11 Right upper quadrant pain (principal); J45.909 Unspecified asthma, uncomplicated; G40.909 Epilepsy, unspecified, not intractable, without status epilepticus; F41.9 Anxiety disorder, unspecified; F32.A Depression, unspecified; F17.290 Nicotine dependence, other tobacco product, uncomplicated; Z90.711 Acquired absence of uterus with remaining cervical stump; N20.0 Calculus of kidney; N83.202 Unspecified ovarian cyst, left side
CPT/HCPCS: 36415; 74177; 80053; 81001; 83690; 85025; 87086; 96361; 96374; 96375; 99284; J2270; J2405; J7030; Q9967

== ENCOUNTER 2023-07-12 10:34 | Outpatient (CLI) | payer OTHER, SELFPAY ==
--- NOTE | 2023-07-12 11:03 | ECG_ITS ---
Measurements Intervals [place] Rate: 78 P: 5 AR: 183 QRS: 25 QRSD: 87 T: 12 QT: 348 QTc: 398 Interpretive Statements SINUS RHYTHM WITH SINUS ARRHYTHMIA BASELINE ARTIFACT- I, II, III, AVR, AVL, AVF NORMAL ECG COMPARED TO ECG 02/16/2021 19:56:01 SINUS ARRHYTHMIA NOW PRESENT Electronically Signed On 07-12-2023 12:23:26 MANNEQUIN REFINISHER by Atul Erazo D.O.
== END 2023-07-12 10:35 | disposition home or self-care (01) ==
PROVIDERS: PCP Internal Medicine Infectious Disease; Visit Provider Obstetrics & Gynecology
DX: R10.2 Pelvic and perineal pain (principal); Z01.818 Encounter for other preprocedural examination
CPT/HCPCS: 36415; 86850; 86900; 86901; 93005

== ENCOUNTER 2023-07-20 00:29 | Day surgery (SDC) | payer OTHER, SELFPAY ==
[2023-07-10 13:26] VITALS: BMI 36.1
--- NOTE | 2023-07-10 14:21 | PC.NURSE ---
Report to the Outpatient Waiting Room, entrance under the green pavilion located off [facility], at 1000 on 07-20-23. Planned Procedure Time: 1200. Time changes happen often and if your time is changed the preop area will call you the afternoon before. - You and your visitor will be asked to self-screen and do not enter if you have any COVID symptoms. - A mask is optional within the hospital at this time. Patients may have clear liquids (water, carbonated beverages, clear teas, apple juice) until 3 hours prior to surgery with a maximum of 20 ounces. 0900 - No food from midnight until time of surgery - Infants may have breast milk until 4 hours before surgery, formula 6 hours prior to surgery. - Children will be allowed to drink immediately following surgery. If applicable, please bring a bottle or sippy cup to assist with drinking. Juice, water, soda, and popsicles are readily available. For infants on formula, please bring formula the day of surgery. Pacifiers are allowed. Take the following medications with a SIP of water the morning of surgery: None Bring inhalers day of surgery DO NOT STOP ANY OF YOUR OTHER PRESCRIPTION MEDICATIONS PRIOR TO SURGERY ?EXCEPT THE FOLLOWING Medications to discontinue per physician: N/A Please no make-up, nail cymro, hairspray, perfume, deodorant, or body powder the day of surgery. No jewelry (including any body piercings) or valuables the day of surgery, leave them at home. Please take a shower or bath the night before, or the morning of, surgery with an antibacterial soap. Wear comfortable, loose fitting clothing. Children are encouraged to wear pajamas. - Jewelry must be removed prior to entering the operating room. Rings and piercings that are not removed may be cut off. - The hospital will not accept responsibility for valuables. - Please leave all valuables, including medications, at home the day of surgery. If you are going home after surgery, a licensed light truck driver must drive you home. - NO public transportation without another adult if you receive anesthesia. - We recommend that an adult stay with you for 24 hours following discharge. - We also recommend that you do not drive, make important decision, drink alcoholic beverages, or take any drugs that were not prescribed by your health care provider for at least 24 hours after your discharge time. For Pediatric surgeries, we recommend two adults accompany the child home. Follow any additional instructions given to you from your surgeon. If you or anyone in your household have experienced Covid symptoms in the past week, please notify your surgeon or the nurse liaison at the phone number below for possible testing. Telephone instructions given to Marielos Aliyah and asked if any additional questions and then verbalized understanding. Patient advised to call surgeon office or pre surgery nurse liaison [phone] if any additional questions.
--- NOTE | 2023-07-18 10:08 | PM.IMHP ---
H&P: HPI History of Present Illness Date/Time: 07/18/23 10:08 Chief Complaint: Pelvic pain Narrative: This is a 28-year-old 4 para 4 status post hysterectomy bilateral salpingectomy admitted for diagnostic laparoscopy secondary to pelvic pain dyspareunia. She has had imaging. She has had negative STD testing. She is admitted for diagnostic laparoscopy. Risks and benefits reviewed including but not exclusive of , aspiration pneumonia, bleeding, transfusion, perforation injury to bowel, bladder, ureters, or other internal organs with need for laparotomy. She received the [facility] handout laparoscopy. She had all questions answered. She asked to proceed PMFSH Past Medical History Medical History Anxiety Asthma Depression Hx of seizure disorder Surgical History Surgical History History of partial hysterectomy Family History Family History Grandparent Diabetes mellitus Cerebrovascular accident Thyroid disorder Sibling Asthma Mother Alcoholism Depression Other Thyroid disorder Other Breast cancer Social History Social History Smoking packs per day: 1.5 Smoking cigarettes per day: 30.0 Years smoked: 10 Smoking pack-years: 15.00 Smoking status: Former smoker Tobacco type: cigarettes and e-cigarettes/vaping Second hand tobacco smoke exposure: No Smoking end date: 01/06/19 Additional smoking assessment comments: STATES I'M CONSTANTLY VAPING ALL DAY LONG Alcohol intake: former Drinks per week: 3 Alcohol use details: drank daily for about 2 years Quit drinking in December 2022 Substance use: former Substance use type: former substance user Living arrangements: with family Occupation/Education: unemployed Gender identity (if verbalized by the patient): Female Spiritual care concerns: No Meds Home Medications and Allergies Home Medications Medication Instructions Recorded Confirmed Type albuterol sulfate 90 mcg/actuation 2 puff inhalation QID PRN 07/31/22 07/10/23 Rx aerosol inhaler shortness of breath or wheezing #8.5 grams lisinopril 10 mg tablet 10 mg PO DAILY 07/10/23 07/10/23 History Allergies Allergy/AdvReac Type Severity Reaction Status Date / Time latex Allergy Severe SEVERE Verified 07/10/23 13:20 SWELLING/IRRITATION/RASH pineapple Allergy Severe ANAPHYLATIC Verified 07/10/23 13:20 REACTION gluten Allergy Mild Gastrointestinal Verified 07/10/23 14:15 Upset Exam Const: General: cooperative, healthy appearing and comfortable Nutritional Appearance: average body habitus Orientation/consciousness: oriented to person, oriented to place and oriented to time HENMT: Head: normal to inspection Resp: Effort & Inspection: normal respiratory effort Cardio: Rate: regular rate Rhythm: regular rhythm Heart sounds: S1 normal heart sound present and S2 normal heart sound present GI: Inspection: normal to inspection : External Female Exam: normal external appearance Speculum Exam - Vagina: normal appearance of the vagina Speculum Exam - Cervix: Cervix absent Bimanual exam- vagina & uterus: uterus absent Bimanual Exam- Adnexa, other: no masses and tender bilaterally Assessment and Plan Assessment and plan (1) Pelvic pain: Code(s): R10.2 - Pelvic and perineal pain Status: Acute Plan Diagnostic laparoscopy
[2023-07-20] VITALS (7 sets, daily range): BP systolic 107–130; BP diastolic 69–92; PULSE 51–83; RESP 16–20; TEMP 36.3–36.6; O2SAT 97–100
[2023-07-20] MEDS: ACETAMINOPHEN 500 MG TABLET 1000 MG PO (06:10)
[2023-07-20 06:15] LABS: Glucose Point of Care 91 mg/dl (65-105)
[2023-07-20] MEDS: LACTATED RINGERS 1,000 ML 30 ML IV CONT (06:20)
[2023-07-20] MEDS: KETOROLAC 15 MG/ML VIAL (*BKC) IV PUSH (06:23)
--- NOTE | 2023-07-20 06:25 | WPDHPUPDATE1 ---
History and Physical Update Update Date/Time: 07/20/23 06:25 History and Physical has been reviewed, including an updated exam of the patient. There are NO changes in the patient's condition. Risks, benefits, and alternatives have been discussed and questions answered. Patient agrees to proceed with procedure.
--- NOTE | 2023-07-20 07:21 | WPDANESEPPF ---
Anes - Initial Pre Proc Eval Procedure: Operation Date: 07/20/23 07:30 Proposed Procedures p Diagnostic Laparoscopy - Sudhakar Chairez MD Date/Time: 07/20/23 07:21 Surgeon: Sudhakar Chairez MD Pre Op Diagnosis: pelvic pain Patient Data Age: 28 Gender: F Height: 1.65 m Weight: 95.5 kg Last Vital Signs Temp 36.3 C L 07/20/23 06:24 Pulse 83 07/20/23 06:24 Resp 16 07/20/23 06:24 BP 130/92 H 07/20/23 06:24 Pulse Ox 100 07/20/23 06:24 O2 Del Method Room Air 07/20/23 06:24 Allergies Allergy/AdvReac Type Severity Reaction Status Date / Time latex Allergy Severe SEVERE Verified 07/20/23 06:00 SWELLING/IRRITATION/RASH pineapple Allergy Severe ANAPHYLATIC Verified 07/20/23 06:00 REACTION gluten Allergy Mild Gastrointestinal Verified 07/20/23 06:00 Upset Home Medications Medication Instructions Recorded Confirmed Type albuterol sulfate 90 mcg/actuation 2 puff inhalation QID PRN 07/31/22 07/10/23 Rx aerosol inhaler shortness of breath or wheezing #8.5 grams lisinopril 10 mg tablet 10 mg PO DAILY 07/10/23 07/10/23 History hydrocodone 5 mg-acetaminophen 325 1 tablet PO Q4H PRN pain #30 tabs 07/20/23 Rx mg tablet Laboratory Tests 07/20/23 06:12 POC Capillary Glucose 91 mg/dl (65-105) Patient hx anesthesia problems: none Family hx anesthesia problems: post op nausea/vomiting Results Review: All pre-operative results and documents have been reviewed as part of the pre-operative evaluation. [facility] Past Medical History Medical History Anxiety Asthma Depression Hx of seizure disorder Surgical History Surgical History History of partial hysterectomy Family History Family History Grandparent Diabetes mellitus Cerebrovascular accident Thyroid disorder Sibling Asthma Mother Alcoholism Depression Other Thyroid disorder Other Breast cancer Social History Social History Smoking packs per day: 1.5 Smoking cigarettes per day: 30.0 Years smoked: 10 Smoking pack-years: 15.00 Smoking status: Former smoker Tobacco type: cigarettes and e-cigarettes/vaping Second hand tobacco smoke exposure: No Smoking end date: 01/06/19 Additional smoking assessment comments: STATES I'M CONSTANTLY VAPING ALL DAY LONG Alcohol intake: former Drinks per week: 3 Alcohol use details: drank daily for about 2 years Quit drinking in December 2022 Substance use: former Substance use type: former substance user Living arrangements: with family Occupation/Education: unemployed Gender identity (if verbalized by the patient): Female Spiritual care concerns: No Anes - Eval Final PreProcedure Day of Procedure 07/20/23 07:21 Patient weight: obese Heart: regular rate and rhythm Lungs: clear to auscultation Airway: Mallampati scale class II Neurological: alert and oriented Last oral intake: >/= 8 hours ASA classification: II Emergent: no Anesthetic plan: proceed Anesthesia type and monitoring: general ETT and standard monitoring Results Review: All pre-operative results and documents have been reviewed as part of the pre-operative evaluation. Informed Consent: The patient's anesthetic plan and its attendant risks and benefits were discussed with the patient/family/POA. Questions were solicited and answers provided to the satisfaction of the patient/family/POA.
--- NOTE | 2023-07-20 07:58 | W.PM.PROC2 ---
Procedure Note - Detailed Date of Procedure 07/20/23 Pre-op Diagnosis pelvic pain Post-op Diagnosis Other (Pelvic pain/ adhesions/ endometriosis) Procedure Performed laparoscopy with destruction of endometriosis lysis of adhesions Surgeon Sudhakar Chairez MD Anesthesia General Indications is a 28-year-old female status post hysterectomy with pelvic pain and imaging findings which were negative Findings uterus was surgically absent adhesions were to vaginal cuff in the left adnexa. Small area of endometriosis seen ovary. Description of Procedure The patient was prepped draped sterile fashion placed in dorsal lithotomy position. Under excellent trach anesthesia a sponge stick was placed in vagina bladder drained of clear urine. The weighted speculum was removed gloves were changed. A supraumbilical incision made the Veress needle passed in the abdomen. Abdomen filled with CO2 gas [id number]. 5Mm trocar advanced under direct visualization with the Optiview and no injury seen. Patient placed in Trendelenburg suprapubic incision made. The 5mm trocar advanced under visualization assuring. The above findings were. Adhesions were fairly dense on left. Left lower quadrant incision made a 5 trocar advanced under visualization assuring using 1 hand to placed on stretch the adhesions were sharply dissected till clear. Serosanguineous fluid was seen in the cul-de-sac and irrigation was undertaken to clear. Small area of endometriosis was seen in the left ovary and this was cauterized at 35 w per 2nd monopolar cautery. Irrigation undertaken no abnormality seen after that photo documentation undertaken lower sites removed. The gas removed from the abdomen. The upper site removed. The incisions closed with 4 Monocryl glue. Patient was awakened went to recovery in satisfactory condition. All sponge, needle, instrument counts were correct. There were no immediate complications Estimated Blood Loss 5 Drains No Packing No Pathology None sent Complications No immediate complications Condition Stable Disposition PACU
== END 2023-07-20 09:45 | disposition home or self-care (01) ==
PROVIDERS: PCP Internal Medicine Infectious Disease; Visit Provider Obstetrics & Gynecology
PROC: (CPT 49320; principal; 2023-07-20 07:30)
DX: N80.102 Endometriosis of left ovary, unspecified depth (principal); N73.6 Female pelvic peritoneal adhesions (postinfective); J45.909 Unspecified asthma, uncomplicated; F17.290 Nicotine dependence, other tobacco product, uncomplicated; E66.9 Obesity, unspecified; Z68.35 Body mass index [BMI] 35.0-35.9, adult; Z79.51 Long term (current) use of inhaled steroids
CPT/HCPCS: 58662; 82948; A9270; J1596; J1885; J2250; J2405; J2704; J2710; J3010; J7120

== ENCOUNTER 2023-08-27 19:18 | Emergency (ER) | payer OTHER, SELFPAY ==
--- NOTE | ~2023-08-27 | XR_ITS ---
EXAM: XR ankle LT min 3V DATE: 08/27/2023 20:44 HISTORY: fall ROLLED ANKLE SUNDAY . COMPARISON: 08/20/2006. FINDINGS: Normal mineralization. No fracture or dislocation. No lytic or blastic lesion. Achilles an d plantar enthesopathy. No erosion or periosteal change. Soft tissues within normal limits. IMPRESSION: No acute osseous finding in the left ankle. Reviewed, dictated and finalized at location [facility]
[2023-08-27 19:19] VITALS: BP 134/91; PULSE 97; RESP 18; TEMP 37.1; O2SAT 99
--- NOTE | 2023-08-27 22:30 | ED.LOWEXIN ---
HPI - Extremity Injury (Lower) General Chief Complaint: Extremity Injury, Lower Stated Complaint: tripped by dog Time Seen by Provider: 08/27/23 21:54 History of Present Illness HPI Narrative: 28-year-old female reports for evaluation for pain in her left ankle. Patient states today she was playing in the yard with her kids and dog when her dog accidentally ran into her and caused her to fall. Patient states she inverted her left ankle and is having pain in the medial and lateral malleolus since. She denies hitting her head or losing consciousness. Denies other injuries acquired. She has been able to bear weight on her heel. Related Data Home Medications Medication Instructions Recorded Confirmed lisinopril 10 mg tablet 10 mg PO DAILY 07/10/23 07/10/23 Allergies Allergy/AdvReac Type Severity Reaction Status Date / Time latex Allergy Severe SEVERE Verified 07/20/23 06:00 SWELLING/IRRITATION/RASH pineapple Allergy Severe ANAPHYLATIC Verified 07/20/23 06:00 REACTION gluten Allergy Mild Gastrointestinal Verified 07/20/23 06:00 Upset Review of Systems Review of Systems: CONSTITUTIONAL: Denies fever, chills, or sweats. EYES: Denies visual changes, redness, or discharge. ENT: Denies rhinorrhea, congestion, sore throat, or otalgia. CARDIOVASCULAR: Denies chest pain, palpitations, or edema. RESPIRATORY: Denies cough or dyspnea. GASTROINTESTINAL: Denies abdominal pain, nausea, vomiting, or diarrhea. GENITOURINARY: Denies dysuria or hematuria. SKIN: Denies rash or itching. MUSCULOSKELETAL: See HPI NEUROLOGIC: Denies headache, numbness, or weakness. PSYCHIATRIC: Denies anxiety or depression. [facility] Past Medical History Medical History Anxiety Asthma Depression Hx of seizure disorder Surgical History Surgical History History of partial hysterectomy Family History Family History Grandparent Diabetes mellitus Cerebrovascular accident Thyroid disorder Sibling Asthma Mother Alcoholism Depression Other Thyroid disorder Other Breast cancer Social History Social History Smoking packs per day: 1.5 Smoking cigarettes per day: 30.0 Years smoked: 10 Smoking pack-years: 15.00 Smoking status: Former smoker Tobacco type: cigarettes and e-cigarettes/vaping Second hand tobacco smoke exposure: No Smoking end date: 01/06/19 Additional smoking assessment comments: STATES I'M CONSTANTLY VAPING ALL DAY LONG Alcohol intake: former Drinks per week: 3 Alcohol use details: drank daily for about 2 years Quit drinking in December 2022 Substance use: former Substance use type: former substance user Living arrangements: with family Occupation/Education: unemployed Gender identity (if verbalized by the patient): Female Spiritual care concerns: No Exam Narrative: GENERAL: Well-appearing, well-nourished, and in no acute distress. HEAD: Normocephalic, atraumatic. EYES: PERRLA and EOMI. NECK: Supple. CHEST: Clear to auscultation. No respiratory distress. HEART: Regular rate and rhythm. No murmur heard. Normal peripheral pulses. EXTREMITIES: LLE: Tenderness and ecchymosis with associated edema to the medial and lateral malleoli. No tenderness to remainder of tib-fib, negative high squeeze. Patient unable to move ankle secondary to pain. No tenderness to metatarsals or toes. Cap refill less than 2. DP pulse 2 +. Compartments soft. SKIN: Warm, dry, no rash. NEURO: No focal deficits. Alert and oriented x3 Course Vital Signs Vital signs: Vital Signs Temperature 98.7 F 08/27/23 19:19 Pulse Rate 97 08/27/23 19:19 Respiratory Rate 18 08/27/23 19:19 Blood Pressure 134/91 H 08/27/23 19:19 Pulse Oximetry 99 08/27/23
[2023-08-27 22:46] VITALS: BP 140/70; PULSE 90; RESP 20; TEMP 37; O2SAT 100
== END 2023-08-27 22:47 | disposition home or self-care (01) ==
PROVIDERS: Emergency Provider Physician Assistant; PCP Internal Medicine Infectious Disease
DX: S93.492A Sprain of other ligament of left ankle, initial encounter (principal); J45.909 Unspecified asthma, uncomplicated; G40.909 Epilepsy, unspecified, not intractable, without status epilepticus; Z90.711 Acquired absence of uterus with remaining cervical stump; Z87.891 Personal history of nicotine dependence; W54.1XXA Struck by dog, initial encounter
CPT/HCPCS: 73610; 99283

== ENCOUNTER 2023-09-25 09:46 | Outpatient (CLI) | payer OTHER, SELFPAY | END 2023-09-25 09:47 | disposition home or self-care (01) | PROVIDERS: PCP Internal Medicine Infectious Disease; Visit Provider Obstetrics & Gynecology | DX: Z01.818 Encounter for other preprocedural examination (principal); R10.2 Pelvic and perineal pain | CPT/HCPCS: 36415; 86850; 86900; 86901 ==

== ENCOUNTER 2023-09-28 00:46 | Day surgery (SDC) | payer OTHER, SELFPAY ==
[2023-09-19 15:26] VITALS: BMI 34.9
--- NOTE | 2023-09-19 15:31 | PC.NURSE ---
Report to the Outpatient Waiting Room, entrance under the green pavilion located off [address], at time 7:15 on date 09/28/23. Planned Procedure Time: 9:15. Time changes happen often and if your time is changed the preop area will call you the afternoon before. - You and your visitor will be asked to self-screen and do not enter if you have any COVID symptoms. - A mask is optional within the hospital at this time. Patients may have clear liquids (water, carbonated beverages, clear teas, apple juice) until 3 hours prior to surgery with a maximum of 20 ounces. - No food from midnight until time of surgery Take the following medications with a SIP of water the morning of surgery: INHALER IF NEEDED DO NOT STOP ANY OF YOUR OTHER PRESCRIPTION MEDICATIONS PRIOR TO SURGERY ?EXCEPT THE FOLLOWING Medications to discontinue per physician: N/A Date to take last dose: N/A Please no make-up, nail marshallese, hairspray, perfume, deodorant, or body powder the day of surgery. No jewelry (including any body piercings) or valuables the day of surgery, leave them at home. Please take a shower or bath the night before, or the morning of, surgery with an antibacterial soap. Wear comfortable, loose fitting clothing. - Jewelry must be removed prior to entering the operating room. Rings and piercings that are not removed may be cut off. - The hospital will not accept responsibility for valuables. - Please leave all valuables, including medications, at home the day of surgery. If you are going home after surgery, a licensed sales warehouse driver must drive you home. - NO public transportation without another adult if you receive anesthesia. - We recommend that an adult stay with you for 24 hours following discharge. - We also recommend that you do not drive, make important decision, drink alcoholic beverages, or take any drugs that were not prescribed by your health care provider for at least 24 hours after your discharge time. Follow any additional instructions given to you from your surgeon. If you or anyone in your household have experienced Covid symptoms in the past week, please notify your surgeon or the nurse liaison at the phone number below for possible testing. Telephone instructions given to TALI TSAI and asked if any additional questions and then verbalized understanding. Patient advised to call surgeon office or pre surgery nurse liaison [phone] if any additional questions.
--- NOTE | 2023-09-26 06:18 | PM.IMHP ---
H&P: HPI History of Present Illness Date/Time: 09/26/23 06:18 Chief Complaint: left-sided ovarian cyst and pain Narrative: 28-year-old status post hysterectomy admitted for laparoscopic LSO secondary to the ovarian cyst and severe pelvic pain. This been ongoing problem for years. Risks and benefits of the procedure were reviewed in full. She had all questions answered. She has received [facility] Past Medical History Medical History Anxiety Asthma Depression Hx of seizure disorder Surgical History Surgical History History of partial hysterectomy Family History Family History Grandparent Diabetes mellitus Cerebrovascular accident Thyroid disorder Sibling Asthma Mother Alcoholism Depression Other Thyroid disorder Other Breast cancer Social History Social History Smoking packs per day: 1.5 Smoking cigarettes per day: 30.0 Years smoked: 10 Smoking pack-years: 15.00 Smoking status: Current every day smoker Tobacco type: e-cigarettes/vaping Second hand tobacco smoke exposure: No Smoking end date: 01/06/19 Additional smoking assessment comments: QUIT CIGARETTES 02/01/19, NOW VAPING Alcohol intake: former Drinks per week: 3 Alcohol use details: QUIT APR 2023 Substance use: former Substance use type: former substance user Living arrangements: with family Occupation/Education: unemployed Gender identity (if verbalized by the patient): Female Spiritual care concerns: No Meds Home Medications and Allergies Home Medications Medication Instructions Recorded Confirmed Type albuterol sulfate 90 mcg/actuation 2 puff inhalation QID PRN 07/31/22 09/19/23 Rx aerosol inhaler shortness of breath or wheezing #8.5 grams lisinopril 10 mg tablet 10 mg PO DAILY 07/10/23 09/19/23 History Allergies Allergy/AdvReac Type Severity Reaction Status Date / Time latex Allergy Severe SEVERE Verified 09/19/23 15:25 SWELLING/IRRITATION/RASH pineapple Allergy Severe ANAPHYLATIC Verified 09/19/23 15:25 REACTION gluten Allergy Mild Gastrointestinal Verified 09/19/23 15:25 Upset Exam Const: General: cooperative, healthy appearing and comfortable Nutritional Appearance: average body habitus Orientation/consciousness: oriented to person, oriented to place and oriented to time HENMT: Head: normal to inspection Resp: Effort & Inspection: normal respiratory effort Cardio: Rate: regular rate Rhythm: regular rhythm Heart sounds: S1 normal heart sound present and S2 normal heart sound present GI: Inspection: normal to inspection : External Female Exam: normal external appearance Speculum Exam - Vagina: normal appearance of the vagina Speculum Exam - Cervix: Cervix absent Bimanual exam- vagina & uterus: uterus absent Bimanual Exam- Adnexa, other: Adnexal mass present on the left tender Assessment and Plan Assessment and plan (1) Pelvic pain: Code(s): R10.2 - Pelvic and perineal pain Status: Acute (2) Left ovarian cyst: Code(s): N83.202 - Unspecified ovarian cyst, left side Status: Acute Plan laparoscopic left oophorectomy
[2023-09-28] VITALS (9 sets, daily range): BP systolic 107–142; BP diastolic 63–91; PULSE 46–70; RESP 14–18; TEMP 36.3–36.9; O2SAT 98–100
--- NOTE | 2023-09-28 07:08 | WPDHPUPDATE1 ---
History and Physical Update Update Date/Time: 09/28/23 07:08 History and Physical has been reviewed, including an updated exam of the patient. There are NO changes in the patient's condition. Risks, benefits, and alternatives have been discussed and questions answered. Patient agrees to proceed with procedure.
[2023-09-28] MEDS: ACETAMINOPHEN 500 MG TABLET 1000 MG PO (07:50)
[2023-09-28] MEDS: KETOROLAC 15 MG/ML VIAL (*BKC) IV PUSH (08:06)
--- NOTE | 2023-09-28 08:39 | WPDANESEPPF ---
Anes - Initial Pre Proc Eval Procedure: Operation Date: 09/28/23 09:15 Proposed Procedures p Laparoscopic Left Salpingo Oophorectomy - Sudhakar Chairez MD Date/Time: 09/28/23 08:39 Surgeon: Sudhakar Chairez MD Pre Op Diagnosis: left side pelvic pain Patient Data Age: 28 Gender: F Height: 1.65 m Weight: 91.9 kg Last Vital Signs Temp 36.4 C 09/28/23 08:09 Pulse 70 09/28/23 08:09 Resp 16 09/28/23 08:09 BP 131/91 H 09/28/23 08:09 Pulse Ox 100 09/28/23 08:09 O2 Del Method Room Air 09/28/23 08:09 Allergies Allergy/AdvReac Type Severity Reaction Status Date / Time latex Allergy Severe SEVERE Verified 09/28/23 07:41 SWELLING/IRRITATION/RASH pineapple Allergy Severe ANAPHYLATIC Verified 09/28/23 07:41 REACTION gluten Allergy Mild Gastrointestinal Verified 09/28/23 07:41 Upset Home Medications Medication Instructions Recorded Confirmed Type albuterol sulfate 90 mcg/actuation 2 puff inhalation QID PRN 07/31/22 09/19/23 Rx aerosol inhaler shortness of breath or wheezing #8.5 grams lisinopril 10 mg tablet 10 mg PO DAILY 07/10/23 09/19/23 History hydrocodone 5 mg-acetaminophen 325 1 tablet PO Q4H PRN pain #20 tabs 09/28/23 Rx mg tablet Patient hx anesthesia problems: none Family hx anesthesia problems: none Results Review: All pre-operative results and documents have been reviewed as part of the pre-operative evaluation. [facility] Past Medical History Medical History Anxiety Asthma Depression Hx of seizure disorder Surgical History Surgical History History of partial hysterectomy Family History Family History Grandparent Diabetes mellitus Cerebrovascular accident Thyroid disorder Sibling Asthma Mother Alcoholism Depression Other Thyroid disorder Other Breast cancer Social History Social History Smoking packs per day: 1.5 Smoking cigarettes per day: 30.0 Years smoked: 10 Smoking pack-years: 15.00 Smoking status: Current every day smoker Tobacco type: e-cigarettes/vaping Second hand tobacco smoke exposure: No Smoking end date: 01/06/19 Additional smoking assessment comments: QUIT CIGARETTES 02/01/19, NOW VAPING Alcohol intake: former Drinks per week: 3 Alcohol use details: QUIT APR 2023 Substance use: former Substance use type: former substance user Living arrangements: with family Occupation/Education: unemployed Gender identity (if verbalized by the patient): Female Spiritual care concerns: No Anes - Eval Final PreProcedure Day of Procedure 09/28/23 08:39 Patient weight: obese Heart: regular rate and rhythm Lungs: clear to auscultation Airway: Mallampati scale class 1 Neurological: alert and oriented Last oral intake: >/= 8 hours ASA classification: III Emergent: no Anesthetic plan: proceed Anesthesia type and monitoring: general ETT and standard monitoring Results Review: All pre-operative results and documents have been reviewed as part of the pre-operative evaluation. Informed Consent: The patient's anesthetic plan and its attendant risks and benefits were discussed with the patient/family/POA. Questions were solicited and answers provided to the satisfaction of the patient/family/POA.
[2023-09-28] MEDS: SCOPOLAMINE 1 MG PATCH 1 PATCH TRANSDERM (09:17)
[2023-09-28] MEDS: LACTATED RINGERS 1,000 ML 30 ML IV CONT ×2 (09:17→10:41)
--- NOTE | 2023-09-28 09:55 | W.PM.PROC2 ---
Procedure Note - Detailed Date of Procedure 09/28/23 Pre-op Diagnosis left side pelvic pain Post-op Diagnosis Same Procedure Performed Laparoscopic left oophorectomy Surgeon Sudhakar Chairez MD Anesthesia General Indications 28-year-old multiparous patient status post hysterectomy with left ovarian cyst chronic pelvic pain on the left Findings uterus was surgically absent. Tubes were surgically absent. Left ovarian cyst was present. Normal-appearing right ovary. Description of Procedure Patient was prepped draped in the sterile fashion placed in the dorsal lithotomy position. Under excellent general endotracheal anesthesia bladder was emptied of clear urine and a sponge stick placed in the vagina. Gloves were changed. Supraumbilical incision made the Veress needle passed in the abdomen. Abdomen filled with CO2 gas to 15mm Hg. 5mm trocar advanced under direct visualization assuring no injury. Patient placed in Trendelenburg and a suprapubic incision made. The 5mm trocar advanced under direct visualization assuring no injury. A left lower quadrant incision made in the 10mm trocar advanced under direct visualization. The above findings were noted the left ovarian cyst. The left infundibulopelvic structure was skeletonized clamping burning cutting with the ligature and then placed in an Endo-Catch to remove the left lower quadrant. Hemostasis was assured irrigation undertaken to clear no other abnormalities were seen. The lower sites removed. The gas removed from the abdomen. The upper sites removed. The incisions closed with 4 Monocryl glue. Patient was awakened which recovered satisfactory condition. All sponge, needle, instrument counts were correct. There were no immediate complications. Estimated Blood Loss 5 Drains No Packing No Pathology Yes Complications No immediate complications Condition Stable Disposition PACU
--- NOTE | 2023-09-28 10:38 | SUR.PHASEI ---
1036: Simple mask removed.
[2023-09-28] MEDS: oxyCODONE HCL (*CRX) 5 MG TAB IR PO (11:11)
== END 2023-09-28 12:00 | disposition home or self-care (01) ==
PROVIDERS: PCP Internal Medicine Infectious Disease; Visit Provider Obstetrics & Gynecology
PROC: (CPT 49320; principal; 2023-09-28 09:15)
DX: N83.202 Unspecified ovarian cyst, left side (principal); J45.909 Unspecified asthma, uncomplicated; F17.290 Nicotine dependence, other tobacco product, uncomplicated; Z79.51 Long term (current) use of inhaled steroids; E66.9 Obesity, unspecified; Z68.33 Body mass index [BMI] 33.0-33.9, adult
CPT/HCPCS: 58661; 88305; A9270; J0330; J1100; J1885; J2250; J2405; J3010; J7030; J7120

== ENCOUNTER 2024-06-04 12:02 | Outpatient (CLI) | payer OTHER, SELFPAY ==
[2024-06-04 12:23] LABS: Hematocrit 37.9 % (35.0-49.0); Hemoglobin 13.5 g/dL (12.0-15.0); Mean Corpuscular HGB Conc 35.6 g/dL (32-36); Mean Corpuscular Hemoglobin 28.8 pg (27.0-31.0); Platelet Count Result 257 K/mm3 (150-420); Red Blood Count 4.68 M/mm3 (4.20-5.40); Red Cell Distribution Width 11.9 % (11.6-14.4); White Blood Count 3.9 K/mm3 (4.8-10.8)
[2024-06-04 12:24] LABS: Add Urine Microscopic? YES; Bilirubin Urine Negative (Negative); Blood Urine Negative (Negative); Color Urine Light Yellow (Yellow); Glucose Urine UA Negative (Negative); Ketones Urine Negative (Negative); Leukocyte Esterase Ur Trace (Negative); Nitrate Urine Negative (Negative); Protein Urine Negative (Negative); Specific Grav Ur 1.025 (1.010-1.020); Urobilinogen Urine 0.2 mg/dL (0.2-1.0)
[2024-06-04 12:38] LABS: Appearance Urine Cloudy (Clear); RBC Urine None seen /hpf (0-2); WBC Urine None seen /hpf (0-3)
[2024-06-04 12:39] LABS: Bacteria Urine 3+ /hpf; Squamous Epithelial Cell Urine Many /hpf (Few)
[2024-06-04 12:55] LABS: Amphetamine Screen Urine Negative (Negative); Barbiturate Screen Urine Negative (Negative); Benzodiazepines Screen Urine Negative (Negative); Cannabinoid Screen Urine Negative (Negative); Cocaine Screen Urine Negative (Negative); Methadone Screen Urine Negative (Negative); Opiate Screen Urine Negative (Negative); Phencyclidine Screen Urine Negative (Negative)
[2024-06-04 13:04] LABS: Alanine Aminotransferase 34 U/L (14-59); Albumin Level 4.1 g/dL (3.4-5.0); Alkaline Phosphatase 77 U/L (46-116); Anion Gap 7 mmol/L (4-12); Aspartate Amino Transferase 16 U/L (15-37); Bilirubin,Total 0.5 mg/dL (0.00-1.00); Blood Urea Nitrogen 11 mg/dL (7-18); Calcium 9.2 mg/dL (8.5-10.1); Carbon Dioxide 28 mmol/L (21-32); Chloride 105 mmol/L (98-108); Cholesterol 169 mg/dL (0-200); Estimated Glomerular Filt Rate > 60; Glucose 88 mg/dL (70-99); HDL Direct 52 mg/dL (40-60); LDL Cholesterol Calculated 104 mg/dL (<130); Osmolality Calculated 288 mOsm/kg (285-295); Potassium 4.2 mmol/L (3.5-5.1); Sodium 140 mmol/L (136-145); Thyroid Stimulating Hormone 1.42 uIU/mL (0.36-3.74); Total Protein 7.9 g/dL (6.4-8.2); Triglycerides 64 mg/dL (0-150)
[2024-06-04 14:32] LABS: Band Neutrophils Percent 0 % (0-6); Basophils Absolute Manual 0.03 K/mm3 (0-0.1); Basophils Percent Manual 1 % (0-1); Eosinophils Absolute Manual 0.11 K/mm3 (0.02-0.50); Eosinophils Percent Manual 3 % (1-6); Lymphocytes Absolute Manual 1.13 K/mm3 (1.1-4.5); Lymphocytes Percent Manual 29 % (18-44); Monocytes Absolute Manual 0.27 K/mm3 (0.1-0.90); Monocytes Percent Manual 7 % (3-9); Neutrophils Absolute Manual 2.34 K/mm3 (1.7-7.2); Neutrophils Percent Manual 60 % (46-73); Platelet Estimate Adequate (Adequate); Total Cells Counted 100
[2024-06-09 11:48] LABS: Kappa\\Lambda Light Chains 1.01 (0.26-1.65); Lambda Light Chain 21.2 mg/L (5.7-26.3)
== END 2024-06-04 12:03 | disposition home or self-care (01) ==
LOC: CHSLAB 12:05
PROVIDERS: PCP Internal Medicine; Visit Provider Internal Medicine
DX: Z00.00 Encounter for general adult medical examination without abnormal findings (principal); G40.909 Epilepsy, unspecified, not intractable, without status epilepticus; R51.9 Headache, unspecified
CPT/HCPCS: 36415; 80053; 80061; 80307; 81001; 83883; 84443; 85025